=== PATIENT | male | born 1960 | race African-American/Black ===

== ENCOUNTER 2016-08-31 13:19 | Inpatient (IN) | payer OTHER ==
[2016-08-31] VITALS (11 sets, daily range): BP systolic 108–138; BP diastolic 58–84
[~2016-08-31] VITALS: Ht 177.8 cm; Wt 141.5 kg
--- NOTE | ~2016-08-31 | HC ---
[facility] [place] [address] CONSULTATION Name: MARISELA MAJOR Room #: 243-P ADM IN M.R.#: [id number] Admission: 08/31/16 Attend Phys: Adriana Winston MD Discharge: Date of : 64 Report #: [id number] THIS REPORT FOR: //name// CC: Adriana Major REASON FOR CONSULTATION: Chronic kidney disease. REASON FOR ADMISSION: Shortness of breath. HISTORY OF PRESENT ILLNESS: This is a 56-year-old who is well known to us. He follows with Dr. Parkinson in my clinic. He is known to have chronic kidney disease with a baseline creatinine of 3.5 as recent as of the early month of August. He was supposed to see Dr. Parkinson in the clinic next week. He suffers from longstanding complication related to diabetes mellitus and hypertension. He has repeated admissions in the last few months and had gallstone pancreatitis back in 2013. In 2016, he required numerous admissions and the most recent hospitalizations were back in June of 2016, where he was admitted with respiratory failure due to noncompliance with fluid restrictions. He presented yesterday complaining of worsening shortness of breath of few days' duration. He stated that he is compliant with his diuretic regimen, but he does not recall his diuretic regimen. He also had realized that his lower extremities had some increased swelling. In the previous admission, he was found as expected to have obstructive sleep apnea and was sent to [facility] for evaluation of pulmonary hypertension; however, he tells me that they gave him an appointment in 4 months and it does not look like this has been done. On presentation to the Emergency Room yesterday, he was found to have acute kidney injury on top of chronic kidney disease with a creatinine up slightly from his baseline at 4.1. He was also to have severe CO2 narcosis with a pCO2 of 75. He was placed on BiPAP, Lasix drip and I was consulted to manage his chronic kidney disease. As I have stated, his creatinine is usually running around 3.5. He suffers from CKD due to diabetes mellitus. He has severe pulmonary hypertension based on previous evaluations. PAST MEDICAL HISTORY: Extensive and numerous including the followin. Chronic kidney disease. 2. Severe pulmonary hypertension. 3. Morbid obesity. 4. Obstructive sleep apnea on 6 liters. 5. Diabetes mellitus. 6. Anemia. 7. Coronary artery disease. 8. Paroxysmal atrial fibrillation. 9. Hypothyroidism. PAST SURGICAL HISTORY: 1. Gallbladder pancreatitis. [facility] [address] [place] [address] CONSULTATION Name: MARISELA MAJOR Room #: 243-P [facility] IN .R.#: [id number] Admission: 08/31/16 Attend Phys: Adriana Winston MD Discharge: Date of : 64 Report #: [id number] 2. Status post tracheostomy. 3. Status post percutaneous endoscopic gastrostomy. 4. Abdominal hernia repair. 5. Abdominal debridement. ALLERGIES: None. FAMILY HISTORY: Hypertension. CURRENT MEDICATIONS: Include the followin. Furosemide. 2. Albuterol. 3. Methylprednisone. HOME MEDICATIONS: Include amlodipine, lisinopril, spironolactone, Lasix, levothyroxine. REVIEW OF SYSTEMS: GENERAL: No fever or chills. CARDIOVASCULAR: Significant for shortness of breath. PULMONARY: Significant shortness of breath and cough. GASTROINTESTINAL: No nausea or vomiting. GENITOURINARY: No frequency, no urgency. PHYSICAL EXAMINATION: GENERAL: He is alert, oriented, was on the BiPAP, but he was able to take it off and was able to give me the details of history. VITAL SIGNS: Pulse rate is 70, blood pressure 105/58. HEAD AND NECK: No jugular venous distention. CHEST: Decreased air entry bilaterally with crackles. CARDIOVASCULAR: No rub detected. Distant. ABDOMEN: Soft, nontender. LOWER EXTREMITIES: +2 edema. LABORATORY DATA: Values reviewed. Potassium is down to 5.7, creatinine is down to 3.7. As I have stated, blood gas with significant CO2 narcosis. This, however, has improved. Chest x-ray reviewed. ASSESSMENT, IMPRESSION, PLAN: 1. Acute respiratory failure. PO2, CO2 retention and necrosis. 2. Severe pulmonary hypertension. 3. Chronic kidney disease. 4. Hyperkalemia. 5. Diabetes mellitus. [facility] [address] [place] [address] CONSULTATION Name: JAQUELIN MAJORNO Room #: 243-P [facility] IN M.R.#: [id number] Admission: 08/31/16 Attend Phys: Adriana Winston MD Discharge: Date of : 64 Report #: [id number] 6. Hypertension. 7. Pulmonary edema. 8. Fluid restrictions. 9. Salt restrictions. 10. Blood sugar control. 11. Blood pressure control. 12. Lasix drip for now. 13. BiPAP. 14. Continue with the Lasix drip for the next 24 hours and then converted to p.o. regimen. 15. Counseling about compliance with medical care. 16. Severe pulmonary hypertension is contributing to his medical issues and he was supposed to go and see somebody at , however, this has not been done. 17. Alternately I will add his angiotensin converting enzyme inhibitors, Aldactone and then convert to p.o. diuretics. He remains in a stable condition for now. <ELECTRONICALLY SIGNED> By: Shi Jay MD 09/02/16 0845 0647 53 Shi Jay MD /nt
--- NOTE | ~2016-08-31 | HC ---
[facility] [place] [address] CONSULTATION Name: MARISELA MAJOR Room #: 311-P [facility] IN M.R.#: [id number] Admission: 08/31/16 Attend Phys: Adriana Winston MD Discharge: Date of : 64 Report #: [id number] THIS REPORT FOR: //name// CC: Adriana Major DATE OF SERVICE: 08/31/2016 REASON FOR CONSULTATION: Hypercapnic respiratory failure. CRITICAL CARE TIME: Thirty-five minutes critical care time spent. IMPRESSION: 1. Hypercapnic respiratory failure. 2. Aauyc-el-zuurauy renal failure. 3. Pulmonary hypertension. 4. Loose stools. 5. Diabetes. 6. Hypothyroidism. 7. Noncompliance. PLAN: 1. ICU protocol. 2. Adjust BiPAP. 3. Renal disease. 4. I have suggested him in the past regarding evaluation at a tertiary center regarding his pulmonary hypertension. He follows with Dr. Major in the office. I am not sure if he was using his BiPAP or oxygen correctly. He has not followed up with renal. HISTORY OF PRESENT ILLNESS: A 56-year-old comes in with complaint of loose stools, progressive shortness of breath and chest pain for approximately a week and also with nausea, vomiting. The patient denies tobacco use. No recent ETOH. PAST MEDICAL HISTORY: Diastolic CHF, severe pulmonary hypertension, ANNE-MARIE, hypercapnic respiratory failure, coronary artery disease with history of SC, CKD, diabetes, hypothyroidism and gout. MEDICATIONS: Per chart include levothyroxine, spironolactone, amlodipine and lisinopril. SOCIAL HISTORY: Negative tobacco or ETOH. FAMILY HISTORY: Diabetes, heart disease and hypertension. [facility] [address] [place] [address] CONSULTATION Name: MARISELA MAJOR Room #: 311-P ADM IN M.R.#: [id number] Admission: 08/31/16 Attend Phys: Adriana Winston MD Discharge: Date of : 64 Report #: [id number] REVIEW OF SYSTEMS: Positive shortness of breath and loose stools. Relates he recently moved. He denies fever or chills. He complained of chest pain. No palpitations. Positive nausea. PHYSICAL EXAMINATION: VITAL SIGNS: Temp 97.8, pulse 68, respirations 26 and BP 116/80. EYES: Negative icterus. NECK: Negative JVD. LUNGS: Coarse crackles. HEART: Regular. ABDOMEN: Bowel sounds present. EXTREMITIES: Showed trace edema, chronic change, moved all extremities. RADIOLOGICAL DATA: Chest x-ray showed bilateral infiltrates. He does not give the suggestions of pneumonia with no fever, chills or sputum production. LABORATORY DATA: pH initial 7.16, pCO2 of 75 and pO2 of 73. White count 6.7, hemoglobin 9.1, platelets 238 and no bands. BiPAP, ABG 7.187, pCO2 68, pO2 of 78, 50%, rate 10, PEEP 6 and pressure support of 10. CMP showed a BUN of 102 and creatinine 4.1. Albumin 3. Repeat ABG 7.204, pCO2 of 70, pO2 of 74 on rate of 10, pressure support of 14 and PEEP of 6. <ELECTRONICALLY SIGNED> By: Gemma Vergara MD 09/03/16 0548 1725 1880 Gemma Vergara MD /nt
--- NOTE | ~2016-08-31 | H ---
[facility] [place] [address] HISTORY AND PHYSICAL Name: CRISTIANOMARISELA Room #: 243-P ADM IN M.R.#: [id number] Admission: 08/31/16 Attend Phys: Adriana Winston MD Discharge: Date of : 64 Report #: [id number] THIS REPORT FOR: //name// CC: Adriana Major MD DATE OF SERVICE: 08/31/2016 PRIMARY DOCTOR: Parrish Major MD CHIEF COMPLAINT: Shortness of breath. HISTORY OF PRESENT ILLNESS: The patient is a 56-year-old male, well known to our service with a history of severe pulmonary hypertension, chronic kidney disease stage 4-5, followed by Dr. Hughes as well as severe chronic respiratory failure secondary to obesity hypoventilation syndrome and obstructive sleep apnea, on CPAP and I believe 6 liters of home O2, presented to the ER secondary to shortness of breath. Most of the information was obtained from the ER documentation, ER staff as well as respiratory therapist as the patient is very somnolent at this time. The patient apparently had issues with his portable O2 tank. He was not getting adequate oxygenation and started developing shortness of breath today. He reported his saturations to be in the 50s on 6 liters. Additionally, for the past week, he has become more short of breath and was concerned about his congestive heart failure. He continues to take Lasix daily. According to the ER staff, he denies any recent weight gain or leg swelling. The patient has had prolonged hospital stay in the past requiring prolonged ventilation and tracheostomy. The patient is currently somnolent, on BiPAP, briefly arousable. The patient was referred to Pulmonary Hypertension Clinic to consult as to whether he is gone. PAST MEDICAL HISTORY: Severe pulmonary hypertension, cor pulmonale with a PA pressure of 80 based on an echocardiogram done in November of last year. I do not see a repeat one since then. Diastolic dysfunction, morbid obesity, chronic respiratory failure, on 6 liters of home O2 secondary to obesity hypoventilation syndrome; obstructive sleep apnea, on BiPAP nocturnally, coronary artery disease, prior ID, chronic kidney disease stage 4-5, diabetes type 2, gout, hypothyroidism, GERD, and paroxysmal AFib. PAST SURGICAL HISTORY: Abdominal hernia repair, trach and PEG with subsequent reversal, and abdominal wound debridement. ALLERGIES: None. FAMILY HISTORY: Reviewed and noncontributory. [address] [address] HISTORY AND PHYSICAL Name: MARISELA MAJOR Room #: 243-P [facility] IN M.R.#: [id number] Admission: 08/31/16 Attend Phys: Adriana Winston MD Discharge: Date of : 64 Report #: [id number] CURRENT MEDICATIONS: DuoNeb p.r.n., Lantus 40 units at bedtime, Lasix 80 mg b.i.d., and OxyIR. PHYSICAL EXAMINATION: VITAL SIGNS: Temperature of 97, pulse 73, blood pressure 109/64 and O2 sat 98% on an FIO2 of 50. GENERAL: He is somnolent, briefly arousable, follow commands. He moves all extremities equally, but very weakly. HEENT: Normocephalic and atraumatic. Pupils are about 2-3 mm, sluggishly reactive. Mucous membranes are moist. NECK: Supple. CARDIOVASCULAR: Regular rate and rhythm. No murmurs. LUNGS: Clear to auscultation bilaterally, decreased at the bases. ABDOMEN: Soft and obese. No distention or tenderness. EXTREMITIES: No edema. NEUROLOGIC: He is arousable, but he can fall to sleep easily and he moves all extremities equally, but he is very weak. IMAGING: Chest x-ray showed increasing CHF and pulmonary edema. LABORATORY DATA: Initial ABG of 7.161, pCO2 of 75, pO2 of 72, O2 sat is 88%, this was on 6 liters; subsequently after a couple of adjustments on his BiPAP, pH of 7.2, pCO2 of 70, pO2 of 73, O2 sat 90% on FIO2 of 30%. Sodium 140, potassium 5.3, BUN and creatinine are 102 and 4.1. Total CO2 of 30. Liver enzymes showed no significant abnormalities. Albumin is 3.0. GFR is 19. White count of 6.7, H and H of 9 and 29, and platelets 238. ASSESSMENT: 1. Acute on chronic hypoxic hypercapnic respiratory failure. 2. Cor pulmonale and pulmonary edema. 3. Severe pulmonary hypertension. 4. Obesity hypoventilation syndrome/obstructive sleep apnea. 5. Acute kidney injury on chronic kidney disease, stage 4-5. 6. Type 2 diabetes. 7. Morbid obesity. 8. Hypothyroidism. 9. Chronic anemia. 10. Gastroesophageal reflux disease. 11. Coronary artery disease, prior myocardial infarction. 12. History of paroxysmal atrial fibrillation. PLAN: 1. Consult renal and pulmonary. Monitor in the ICU. 2. I will start him on Lasix drip. 3. Aggressive pulmonary toiletry, O2 support, nebulizers. 4. Resume home medications once appropriate. [facility] [address] [place] [address] HISTORY AND PHYSICAL Name: MARISELA MAJOR Room #: 243-P ADM IN MKarinR.#: [id number] Admission: 08/31/16 Attend Phys: Adriana Winston MD Discharge: Date of : 64 Report #: [id number] 5. We will repeat an echocardiogram. 6. DVT prophylaxis with heparin. By: [id number] 1920 Adriana Winston MD /nt
--- NOTE | ~2016-08-31 | 2DMMODE ---
[facility] [address] [place] [address] 2 D/M-MODE ECHOCARDIOGRAM Name: JAQUELIN QUINONEZNO Room #: 243-P [facility] IN .R.#: [id number] Admission: 08/31/16 Attend Phys: Adriana Winston MD Discharge: Date of : 64 Date of Service: 09/02/16 1310 Report #: [id number] THIS REPORT FOR: //name// APPROVED REPORT Study performed: 09/01/2016 09:29:29 EXAM: Comprehensive 2D, Doppler, and color-flow Echocardiogram Patient Location: Bedside Room #: 243 Blood Pressure: 139/71 mmHg HR: 82 bpm Other Information Study Quality: Adequate Indications Congestive Heart Failure Diabetes CAD Hypertension/HDD Congenital Heart Disease Cor Pulmonale Pulmonary Hypertension 2D Dimensions LVEF(%): 45.01 (>50%) IVSd: 13.80 (7-11mm) LVOT Diam: 24.00 (18-24mm) LVDd: 46.82 mm PWd: 12.04 (7-11mm) Ascending Aorta: 33.54 mm LVDs: 36.37 (25-40mm) Aortic Root: 35.92 mm Donaldson's LVEF: 45.01 % Volumes Left Atrial Volume (Systole) Single Plane 4CH: 73.72 mL Single Plane 2CH: 124.60 mL LA ESV Index: 52.00 mL/m2 Aortic Valve AoV Peak Maciej.: 1.60 m/s AO Peak Gr.: 11.48 mmHg LV Max P.98 mmHg LV Max: 1.00 m/s [facility] [address] [place] [address] 2 D/M-MODE ECHOCARDIOGRAM Name: JAQUELIN QUINONEZNO Room #: 243-P [facility] IN ..#: [id number] Admission: 08/31/16 Attend Phys: Adriana Winston MD Discharge: Date of : 64 Date of Service: 09/02/16 1310 Report #: [id number] Mitral Valve E/A Ratio: 1.2 MV Decel. Time: 176.95 ms MV E Max Maciej.: 1.08 m/s MV A Maciej.: 0.87 m/s MV PHT: 51.32 ms Pulmonary Valve PV Peak Maciej.: 1.34 m/s PV Peak Gr.: 7.26 mmHg NJ End Vmax: 1.40 m/s Pulmonary Vein P Vein S: 55.3 m/s P Vein D: 35.0 m/s P Vein A Dur.: 39.4 m/s PVa Duration: 180 Tricuspid Valve TR Peak Maciej.: 3.94 m/s RAP Estimate: 15.00 mmHg TR Peak Gr.: 62.03 mmHg PA Pressure: 77.00 mmHg Left Ventricle The left ventricle is normal size. There is normal LV segmental wall motion. Mild concentric left ventricular hypertrophy. Left ventricular systolic function is normal. The left ventricular ejection fraction is within the normal range. LVEF is 55-60%. Grade II - pseudonormal filling dynamics. Right Ventricle Right ventricle is moderately dilated. The right ventricular systolic function is reduced. Atria Left atrium is dilated. Right atrium is moderately dilated. Aortic Valve The aortic valve is normal in structure. No aortic regurgitation is present. There is no aortic valvular stenosis. Mitral Valve The mitral valve is normal in structure. There is no mitral valve regurgitation noted. No evidence of mitral valve stenosis. Tricuspid Valve The tricuspid valve is normal in structure. Moderate tricuspid [facility] [address] [place] [address] 2 D/M-MODE ECHOCARDIOGRAM Name: MARISELA QUINONEZ Room #: 243-P ADM IN M.R.#: [id number] Admission: 08/31/16 Attend Phys: Adriana Winston MD Discharge: Date of : 64 Date of Service: 09/02/16 1310 Report #: [id number] regurgitation. Pulmonic Valve The pulmonary valve is normal in structure. Mild pulmonic regurgitation. Great Vessels The aortic root is normal in size. Dilated IVC with poor inspiration collapse is consistent with elevated right atrial pressure. Pericardium There is no pericardial effusion. <Conclusion> Left ventricular systolic function is normal. There is normal LV segmental wall motion. LVEF 55-60%. Grade II - pseudonormal filling dynamics. Right ventricle is moderately dilated. Left atrium is dilated. Right atrium is moderately dilated. The aortic valve is normal in structure. No aortic regurgitation or stenosis The mitral valve is normal in structure. There is no mitral valve regurgitation noted. Pulmonary artery pressure of 55mm Hg. There is no pericardial effusion. <ELECTRONICALLY SIGNED> By: David Godoy MD, FACC 09/02/161309 09 09 David Godoy MD, FACC /INF
--- NOTE | ~2016-08-31 | EKG ---
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 09/02/16 1453 1408 1408 David Godoy MD, FACC /EPI
[~2016-08-31 13:19] MED LIST: ALDACTONE25 MG PO; AMARYL1 MG; AMLODIPINE; AMLODIPINE PO; ARICEPT23 MG; ASPIRIN EC81 M1; AUGMENTIN 875875 MG PO; AVAPRO300 MG; BACTRIM DS TAB1 EACH PO; COLCHICINE0.6 MG PO; COLCRYS 0.6 MG0.6 MG PO; DEMADEX 2020 MG/1 TA PO; DEMADEX20 MG; DIGOXIN; DOXYCYCLINE 10100 M1 PO; DUONEB 2.5-0.5 M3 ML INH; FUROSEMIDE; HUMALOG100 UNIT/1 SUBQ; HYDROXYZINE HCL25 M1 PO; IBUPROFEN 600600 M1 PO; IRON325 PO; K-DUR 20 MEQ T20 MEQ; LANOXIN 0.120.125 M3; LANOXIN 0.250.25 M1 PO; LANTUS100 UNIT/M SUBQ; LASIX 40 MG TAB40 MG PO; LASIX 80 MG TAB80 MG PO; LISINOPRIL; LISINOPRIL40 MG PO; LISINOPRIL5 MG; MIRALAX17 GM PO; NAMENDA 10 MG T10 MG; NEPHROCAPS SOFT1 CAP PO; NORCO 5-325 TA1 EACH PO; NORVASC 5 MG TAB5 MG PO; NOVOLIN N100 UNIT/1 SQ; NOVOLIN N100 UNIT/1 SUBQ; OXYCODONE HCL10 MG PO; PERCOCET 5-3251 EACH PO; PERCOCET PO; POTASSIUM; PREDNISONE 10 M10 MG; PREDNISONE 20 M20 MG PO; PRINIVIL PO; RENVELA800 MG PO; SEROQUEL 25 MG25 M1; SYNTHROID; SYNTHROID125 MCG; SYNTHROID200 MCG PO; SYNTHROID50 MCG; TORSEMIDE10 MG PO; TYLENOL325 MG PO; ULTRA-LIGHT RO1 EACH MC; ULTRAM 50MG TAB50 MG PO; VITAMIN D31000 UNI2; ZOLOFT 50 MG TA50 M1
[2016-08-31] MEDS ORDERED: ALDACTONE25 MG PO (13:46)
[2016-08-31] MEDS ORDERED: NORVASC5 MG PO (13:47)
[2016-08-31] MEDS ORDERED: VIT D (13:47)
[2016-08-31] MEDS ORDERED: [UNRECOGNIZED DRUG - OTHER] (13:47)
[2016-08-31] MEDS ORDERED: PROBIOTIC1 EAC1 PO (13:47)
[2016-08-31] MEDS ORDERED: UNICOMPLEX M TA1 TA1 PO (13:47)
[2016-08-31] MEDS ORDERED: PRINIVIL20 MG PO (13:48)
[2016-08-31] MEDS ORDERED: V-R WOMEN'S CO1 EACH PO (13:48)
[2016-08-31 14:09] LABS: ABG SAMPLE TYPE ARTERIAL; BE(vivo) -3.3 mmol/L (-2 to +3); HCO3 26.3 mmol/L (22.0-26.0); LACTATE 1.31 mmol/L (0.5-2.0); O2(CT) 12.8 mL/dL (15.0-23.0); O2Hb 88.8 % (92.0-98.0); PO2 72.6 mmHg (80.0-100.0); sO2 89.4 % (92.0-98.0); tCO2 28.6 mmol/L (24.0-30.0)
[2016-08-31 14:10] LABS: PCO2 75.3 mmHg (35.0-45.0); STICK SITE R.RADIAL; pH 7.161 (7.360-7.450)
[2016-08-31 15:09] LABS: BASOPHILS 0.6 % (0.0-2.0); EOSINOPHILS 1.5 % (0.0-3.0); HEMATOCRIT 29.1 % (42.0-52.0); HEMOGLOBIN 9.1 gm/dL (14.0-18.0); LYMPHOCYTES 16.3 % (24.0-44.0); MCH 27.8 pg (26.0-34.0); MCHC 31.2 g/dL (28.0-37.0); MCV 89.1 fL (80.0-100.0); MONOCYTES 7.3 % (1.0-8.0); PLATELET COUNT 238 thou/uL (150-400); POLYS 74.3 % (36.0-66.0); RBC 3.27 mil/uL (4.50-6.00); RDW 18.9 % (10.5-14.5); WBC 6.7 thou/uL (4.0-11.0)
[2016-08-31 15:10] LABS: MANUAL DIFF NO
[2016-08-31 15:11] LABS: ABG SAMPLE TYPE ARTERIAL; BE(vivo) -3.5 mmol/L (-2 to +3); HCO3 25.4 mmol/L (22.0-26.0); LACTATE 1.25 mmol/L (0.5-2.0); O2(CT) 12.9 mL/dL (15.0-23.0); PCO2 68.4 mmHg (35.0-45.0); PO2 77.9 mmHg (80.0-100.0); pH 7.187 (7.360-7.450); sO2 91.9 % (92.0-98.0); tCO2 27.5 mmol/L (24.0-30.0)
[2016-08-31 15:12] LABS: Pressure Support 10 cm H20
[2016-08-31 15:13] LABS: STICK SITE R.RADIAL
[2016-08-31 15:17] LABS: ANION GAP 6 mmol/L (7-16); BUN 102 mg/dL (7-18); CALCIUM 8.4 mg/dL (8.5-10.1); CHLORIDE 104 mmol/L (98-107); CO2 30 mmol/L (21-32); CREATININE 4.1 mg/dL (0.7-1.3); GLUCOSE 92 mg/dL (74-106); POTASSIUM 5.3 mmol/L (3.5-5.1); SODIUM 140 mmol/L (136-145)
[2016-08-31 15:27] LABS: ALKALINE PHOSPHATASE 70 U/L (46-116); NT-PRO BRAIN NAT PEPTIDE 9122 pg/mL (<300); SGOT 15 U/L (15-37); SGPT 17 U/L (30-65); TOTAL BILIRUBIN 0.4 mg/dL (<0.1-1.0); TOTAL PROTEIN 8.3 g/dL (6.4-8.2); TROPONIN-I < 0.04 ng/mL (<0.04-0.07)
[2016-08-31 16:18] LABS: ABG SAMPLE TYPE ARTERIAL; BE(vivo) -1.8 mmol/L (-2 to +3); HCO3 27.1 mmol/L (22.0-26.0); LACTATE 1.25 mmol/L (0.5-2.0); O2Hb 90.2 % (92.0-98.0); PO2 73.6 mmHg (80.0-100.0); sO2 90.9 % (92.0-98.0); tCO2 29.2 mmol/L (24.0-30.0)
[2016-08-31 16:19] LABS: PCO2 70.2 mmHg (35.0-45.0); pH 7.204 (7.360-7.450)
[2016-08-31 16:20] LABS: STICK SITE R.RADIAL
[2016-08-31 16:21] LABS: Pressure Support 14 cm H20
[2016-08-31 21:12] LABS: TROPONIN-I < 0.04 ng/mL (<0.04-0.07)
[2016-09-01] VITALS (24 sets, daily range): BP systolic 101–159; BP diastolic 38–138
[2016-09-01 01:56] LABS: URINE BILIRUBIN NEGATIVE (Negative); URINE BLOOD NEGATIVE (Negative); URINE COLOR YELLOW; URINE GLUCOSE-RANDOM* NEGATIVE (Negative); URINE KETONES NEGATIVE (Negative); URINE LEUKOCYTES-REFLEX NEGATIVE (Negative); URINE PROTEIN (DIPSTICK) 2+ (Negative); URINE SPECIFIC GRAVITY 1.025 (1.003-1.035); URINE UROBILINOGEN 0.2 E.U./dl (0.2-1.0)
[2016-09-01 02:30] LABS: SQUAMOUS 4-10 Moderate /LPF (0-3)
[2016-09-01 02:31] LABS: CASTS None Seen /LPF (None Seen); CRYSTALS None Seen /LPF (None Seen); URINE RBC 0-2 Rare /HPF (0-2); URINE WBC-REFLEX 0-5 Rare /HPF (0-5)
[2016-09-01 03:28] LABS: HEMATOCRIT 29.8 % (42.0-52.0); HEMOGLOBIN 9.3 gm/dL (14.0-18.0); MCH 27.6 pg (26.0-34.0); MCHC 31.2 g/dL (28.0-37.0); MCV 88.3 fL (80.0-100.0); PLATELET COUNT 239 thou/uL (150-400); RBC 3.37 mil/uL (4.50-6.00); RDW 18.4 % (10.5-14.5); WBC 6.6 thou/uL (4.0-11.0)
[2016-09-01 03:30] LABS: MANUAL DIFF YES
[2016-09-01 03:39] LABS: ALBUMIN 2.9 g/dL (3.4-5.0); CALCIUM 8.6 mg/dL (8.5-10.1); CREATININE 3.7 mg/dL (0.7-1.3); PHOSPHORUS 6.4 mg/dL (2.5-4.9); POTASSIUM 5.9 mmol/L (3.5-5.1); TOTAL BILIRUBIN 0.4 mg/dL (<0.1-1.0); TOTAL PROTEIN 7.5 g/dL (6.4-8.2)
[2016-09-01 03:47] LABS: TROPONIN-I < 0.04 ng/mL (<0.04-0.07)
[2016-09-01 04:06] LABS: GLYCOHEMOGLOBIN (HGB A1C) 5.9 % (4.8-5.6)
[2016-09-01 05:06] LABS: ABG SAMPLE TYPE ARTERIAL; BE(vivo) -3.2 mmol/L (-2 to +3); HCO3 24.4 mmol/L (22.0-26.0); O2(CT) 12.9 mL/dL (15.0-23.0); O2Hb 90.4 % (92.0-98.0); PCO2 56.7 mmHg (35.0-45.0); PO2 66.4 mmHg (80.0-100.0); Pressure Support 14 cm H20; STICK SITE R.RADIAL; pH 7.251 (7.360-7.450); sO2 89.6 % (92.0-98.0); tCO2 26.1 mmol/L (24.0-30.0)
[2016-09-01 10:02] LABS: ABSOLUTE NEUTROPHILS 5.8 thou/uL (1.4-8.2); TOTAL CELL COUNT 100
[2016-09-01 10:03] LABS: ANISOCYTOSIS 2+; POLYCHROMASIA OCCASIONAL
[2016-09-01 10:25] LABS: ABG SAMPLE TYPE ARTERIAL; BE(vivo) 0.9 mmol/L (-2 to +3); HCO3 29.5 mmol/L (22.0-26.0); LACTATE 1.36 mmol/L (0.5-2.0); O2(CT) 12.9 mL/dL (15.0-23.0); O2Hb 91.4 % (92.0-98.0); STICK SITE R.RADIAL; pH 7.231 (7.360-7.450); sO2 91.8 % (92.0-98.0); tCO2 31.8 mmol/L (24.0-30.0)
[2016-09-02] VITALS (11 sets, daily range): BP systolic 109–141; BP diastolic 68–78
[2016-09-02 04:23] LABS: CALCIUM 8.1 mg/dL (8.5-10.1); CREATININE 3.6 mg/dL (0.7-1.3); PHOSPHORUS 5.1 mg/dL (2.5-4.9); POTASSIUM 5.7 mmol/L (3.5-5.1)
[2016-09-02 05:24] LABS: ABG SAMPLE TYPE ARTERIAL; BE(vivo) 2.4 mmol/L (-2 to +3); HCO3 29.3 mmol/L (22.0-26.0); LACTATE 1.39 mmol/L (0.5-2.0); O2(CT) 14.9 mL/dL (15.0-23.0); O2Hb 96.1 % (92.0-98.0); PCO2 56.8 mmHg (35.0-45.0); PO2 100.4 mmHg (80.0-100.0); Pressure Support 14 cm H20; STICK SITE R.RADIAL; sO2 97.1 % (92.0-98.0)
[2016-09-02 05:25] LABS: ABG COMMENT BIPAP 20/ 6 R-10
[2016-09-03 03:38] VITALS: BP 137/72
[2016-09-03 07:15] LABS: ALBUMIN 2.8 g/dL (3.4-5.0); CALCIUM 8.2 mg/dL (8.5-10.1); CREATININE 3.2 mg/dL (0.7-1.3); PHOSPHORUS 4.5 mg/dL (2.5-4.9); POTASSIUM 4.2 mmol/L (3.5-5.1)
[2016-09-03 08:33] VITALS: BP 139/82
[2016-09-03 11:49] VITALS: BP 139/82
[2016-09-03] MEDS ORDERED: FLAGYL500 MG PO (12:58)
[2016-09-03] MEDS ORDERED: CEFUROXIME250 MG PO (12:58)
[2016-09-03] MEDS ORDERED: PREDNISONE 10 M10 MG PO (12:59)
[2016-09-03] MEDS ORDERED: SYNTHROID200 MCG PO (12:59)
[2016-09-03 13:10] VITALS: BP 139/82
[2016-09-04 22:06] LABS: INFLUENZA B Negative (Negative); METAPNEUMOVIRUS Negative (Negative)
== END 2016-09-03 14:32 | disposition home or self-care (01) | DRG 177 ==
LOC: ER 13:19 → EROBS 15:49 → 3N 15:49 → ICU 18:54 → 3N 09-02 13:24
PROVIDERS: Family Medicine; Hospitalist; Internal Medicine Pulmonary Disease; Nurse Practitioner Family
PROC: 5A09357 Assistance with Respiratory Ventilation, Less than 24 Consecutive Hours, Continuous Positive Airway Pressure (ICD-10-PCS; principal; 2016-08-31)
DX: J69.0 Pneumonitis due to inhalation of food and vomit (principal); J96.22 Acute and chronic respiratory failure with hypercapnia; I50.23 Acute on chronic systolic (congestive) heart failure; J96.21 Acute and chronic respiratory failure with hypoxia; N17.9 Acute kidney failure, unspecified; I13.2 Hypertensive heart and chronic kidney disease with heart failure and with stage 5 chronic kidney disease, or end stage renal disease; N18.5 Chronic kidney disease, stage 5; E87.2 Acidosis; Z68.41 Body mass index [BMI] 40.0-44.9, adult; I25.10 Atherosclerotic heart disease of native coronary artery without angina pectoris; E03.9 Hypothyroidism, unspecified; M10.9 Gout, unspecified; K21.9 Gastro-esophageal reflux disease without esophagitis; I48.0 Paroxysmal atrial fibrillation; G47.33 Obstructive sleep apnea (adult) (pediatric); I27.2 Other secondary pulmonary hypertension; E87.5 Hyperkalemia; E11.22 Type 2 diabetes mellitus with diabetic chronic kidney disease; E66.01 Morbid (severe) obesity due to excess calories; I27.81 Cor pulmonale (chronic); B96.89 Other specified bacterial agents as the cause of diseases classified elsewhere; I25.2 Old myocardial infarction; Z79.4 Long term (current) use of insulin; Z93.0 Tracheostomy status; Z91.19 Patient's noncompliance with other medical treatment and regimen; Z83.3 Family history of diabetes mellitus; Z82.49 Family history of ischemic heart disease and other diseases of the circulatory system; Z93.1 Gastrostomy status; Z79.899 Other long term (current) drug therapy
CPT/HCPCS: 10078; 10096

== ENCOUNTER 2017-09-30 17:32 | Emergency (ER) | payer OTHER ==
[~2017-09-30] VITALS: Ht 177.8 cm; Wt 139.7 kg
[~2017-09-30 17:32] MED LIST changes: +CEFUROXIME250 MG PO; +FLAGYL500 MG PO; +NORVASC5 MG PO; +PREDNISONE 10 M10 MG PO; +PRINIVIL20 MG PO; +PROBIOTIC1 EAC1 PO; +UNICOMPLEX M TA1 TA1 PO; +V-R WOMEN'S CO1 EACH PO; +VIT D; +[UNRECOGNIZED DRUG - OTHER]
[2017-09-30 17:50] VITALS: BP 143/78
[2017-09-30] MEDS ORDERED: ERYTHROMYCIN E3.5 G2 OPHTHALMIC (18:30)
[2017-09-30] MEDS ORDERED: KEFLEX500 M1 PO (18:30)
== END 2017-09-30 18:48 | disposition home or self-care (01) ==
LOC: ER 17:32
DX: H00.014 Hordeolum externum left upper eyelid (principal); E11.9 Type 2 diabetes mellitus without complications; I13.0 Hypertensive heart and chronic kidney disease with heart failure and stage 1 through stage 4 chronic kidney disease, or unspecified chronic kidney disease; I50.9 Heart failure, unspecified; N18.4 Chronic kidney disease, stage 4 (severe); E11.22 Type 2 diabetes mellitus with diabetic chronic kidney disease; E03.9 Hypothyroidism, unspecified; M10.9 Gout, unspecified; K21.9 Gastro-esophageal reflux disease without esophagitis

== ENCOUNTER 2017-11-03 13:18 | Inpatient (IN) | payer OTHER ==
[~2017-11-03] VITALS: Ht 180.3 cm; Wt 147.4 kg
[2017-11-03] VITALS (7 sets, daily range): BP systolic 131–157; BP diastolic 70–81
--- NOTE | ~2017-11-03 | HC ---
[facility] [place] [address] CONSULTATION Name: MARISELA QUINONEZ Room #: 213-P [facility] IN M.R.#: [id number] Admission: 11/03/17 Attend Phys: Shi Jay MD Discharge: 11/07/17 Date of : 64 Report #: [id number] THIS REPORT FOR: //name// CC: Shi Jay [facility] physician/PCP Parrish Pedrito DATE OF SERVICE: 11/04/2017 ATTENDING PHYSICIAN: Shi Jay MD was the initial admitting physician. REASON FOR CONSULTATION: Acute and chronic kidney disease. HISTORY OF PRESENT ILLNESS: The patient is quite well known to our service, multiple prior similar admissions with chronic respiratory failure, obesity hypoventilation, COPD and chronic kidney disease with diabetes and proteinuric renal failure with a creatinine recently of 3.5 and now up to 4. He follows with Dr. Parkinson in the office, but not on any regular basis, presents with progressive shortness of breath and swelling of his legs. No cough or hemoptysis, or pleuritic pain. PAST MEDICAL HISTORY: Diabetes, obesity hypoventilation, diabetic nephropathy, history of paroxysmal atrial fibrillation, cor pulmonale and hypertension. HOME MEDICATIONS: As listed include amlodipine 5 mg daily, furosemide 80 mg b.i.d., insulin, DuoNeb inhaler, levothyroxine 0.2 mg daily, lisinopril 40 mg daily, Flagyl as listed, oxycodone, multiple vitamins, prednisone. He has been on and off of that. Spironolactone 25 mg daily. FAMILY HISTORY: Recorded in the old charts. SOCIAL HISTORY: No cigarettes or alcohol. REVIEW OF SYSTEMS: GENERAL: He has actually been feeling reasonably well except for the progressive exertional dyspnea. EYES: His vision has been okay. ENT: Hearing okay, swallows okay. ENDOCRINE: Positive for the diabetes and thyroid disease. RESPIRATORY: Chronic shortness of breath as mentioned. CARDIAC: No chest pain or angina. He does have chronic right-sided failure with swelling. GASTROINTESTINAL: No nausea, vomiting, diarrhea. He has got a good appetite. GENITOURINARY: Reasonably good urinary stream without hematuria. NEUROLOGIC: Some generalized weakness only. No seizure, syncope, stroke or neuropathy. [facility] [address] [place] [address] CONSULTATION Name: MARISELA QUINONEZ Room #: 213-P [facility] IN M.R.#: [id number] Admission: 11/03/17 Attend Phys: Shi Jay MD Discharge: 11/07/17 Date of : 64 Report #: [id number] PHYSICAL EXAMINATION: GENERAL: This is a well-developed, well-nourished, quite alert gentleman, currently on BiPAP, but answering questions. SKIN: Unremarkable. SKELETAL: Rather obese, well-developed, well-nourished. HEENT: Extraocular movements are full. No scleral icterus. Hearing and vision intact. Mucous membranes moist. NECK: Supple. CHEST: Shows diminished breath sounds. HEART: Regular. ABDOMEN: Soft and nontender. EXTREMITIES: Show 2+ lower extremity edema. LABORATORY DATA: The potassium, which I believe was a spurious result this morning, was reported at 7.4. The BUN was 131 yesterday, down to 126 after diuresis. Creatinine 4.1 down to 4.0. Glucose was 291. Magnesium 1.7. ASSESSMENT AND PLAN: 1. Acute and chronic kidney disease, apparently has diabetic nephropathy. We will recheck him for proteinuria. Check a urinalysis. He has very, very severe end-stage pulmonary disease, likely would not be a great candidate for chronic dialysis. He has been appropriately on a converting enzyme inhibitor for his proteinuric renal disease and this will be restarted pending a recheck of his proteinuria. 2. Hyperkalemia. I believe this is spurious. His sugar was up and treating that would certainly help as well and we will recheck. 2. Obesity ventilation with chronic respiratory insufficiency, on BiPAP and oxygen at home. 3. Cor pulmonale with right-sided heart failure. 4. History of paroxysmal atrial fibrillation, currently in sinus rhythm. <ELECTRONICALLY SIGNED> By: Mike Urena MD 11/08/17 1122 0737 0942 Mike Urena MD /nt
--- NOTE | ~2017-11-03 | EKG ---
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 : 1960 Requested By: Mike Urena Order Number: [id number] MD: David Godoy Measurements Intervals [place] Rate: 55 P: 78 MS: 201 QRS: 58 QRSD: 108 T: 62 QT: 477 QTc: 457 Interpretive Statements Sinus bradycardia Prolonged MS interval Compared to ECG 11/03/2017 14:24:35 No significant change was found Electronically Signed On 11-05-2017 9:03:37 CDT by David Godoy [email or web address] <ELECTRONICALLY SIGNED> By: David Godoy MD, [facility] 11/05/17 0903 D: 06/636 6 David Godoy MD, FACC /EPI
--- NOTE | ~2017-11-03 | EKG ---
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: Nedra DIXON : 1960 Requested By: Kingsley Gutierrez Order Number: [id number] MD: González Desai Measurements Intervals [place] Rate: 63 P: 54 WA: 215 QRS: 45 QRSD: 116 T: 70 QT: 457 QTc: 468 Interpretive Statements Sinus rhythm Prolonged WA interval Nonspecific intraventricular conduction delay Compared to ECG 08/31/2016 14:08:48 Intraventricular conduction delay now present Electronically Signed On 11-03-2017 21:20:28 CDT by González Desai [email or web address] <ELECTRONICALLY SIGNED> By: González Desai MD 11/03/172119 142 142 González Desai MD /JUDY
--- NOTE | ~2017-11-03 | H ---
[facility] [place] [address] HISTORY AND PHYSICAL Name: MARISELA MAJOR Room #: 213-P [facility] IN M.R.#: [id number] Admission: 11/03/17 Attend Phys: Shi Jay MD Discharge: 11/07/17 Date of : 64 Report #: [id number] THIS REPORT FOR: //name// CC: Shi Jay [facility] physician/PCP Parrish Major REASON FOR PRESENTATION: Shortness of breath of 4 days' duration. HISTORY OF PRESENT ILLNESS: This is a very well known patient to me. He is known to have severe obstructive sleep apnea, utilizing BiPAP at home. He is also known to have severe right-sided pulmonary hypertension with chronic kidney disease and a baseline creatinine of around 3-3.5. He presented to the Emergency Room complaining of worsening shortness of breath over the last few days. This was associated with lower extremity edema. No reported upper respiratory tract symptoms, infection. No chest pain. No fever or chills. He stated that he is compliant with his BiPAP at home. He also stated that he is compliant with his salt, fluid restriction and diuretics intake. On presentation to the Emergency Room, he was found to be in acute hypercapnic respiratory failure with significant anemia. Chest x-ray was consistent with pulmonary edema. The patient has been admitted to the hospital numerous occasion with a similar presentation, the last of which was back in August 2016. In terms of kidney problems, he does have complicated past medical history when it comes to his kidneys and he required dialysis in the past. He tells me that he last saw Dr. Parkinson in the clinic about 6 months ago. PAST MEDICAL HISTORY: 1. Severe pulmonary hypertension with cor pulmonale. 2. Morbid obesity. 3. Obstructive sleep apnea. 4. Diabetes mellitus. 5. Paroxysmal atrial fibrillation. 6. Hypothyroidism. PAST SURGICAL HISTORY: 1. Gallbladder pancreatitis 2. Status post tracheostomy. 3. Status post abdominal hernia repair. 4. Abdominal wall debridement for an abscess. ALLERGIES: None. FAMILY HISTORY: Hypertension. CURRENT MEDICATIONS: Include the following. 1. Cephalexin: 2. Amlodipine. [facility] [address] [place] [address] HISTORY AND PHYSICAL Name: JAQUELIN MAJORNO Room #: 213-P [facility] IN ..#: [id number] Admission: 11/03/17 Attend Phys: Shi Jay MD Discharge: 11/07/17 Date of : 64 Report #: [id number] 3. Lisinopril. 4. Oxycodone. 5. Furosemide. 6. Prednisone. 7. Lantus. 8. Levothyroxine. REVIEW OF SYSTEMS: GENERAL: No fever or chills. CARDIOVASCULAR: As per the history of present illness. PULMONARY: As per the history of present illness. GASTROINTESTINAL: No nausea or vomiting. GENITOURINARY: No frequency, no urgency. PHYSICAL EXAMINATION: VITAL SIGNS: He was on CPAP. Blood pressure was 151/78. However, his blood pressure when he presented was 200 for the systolic. Pulse rate is 60. HEAD AND NECK: Mildly elevated jugular venous pressure. CHEST: Very limited air entry bilaterally with crackles. CARDIOVASCULAR: Distant S1 and S2. ABDOMEN: Obese. LOWER EXTREMITIES: +3 edema. LABORATORY VALUES: Reviewed. Hemoglobin is low at 7.7. Blood gas revealed a pH of 7.1, a pCO2 of 65. Sodium of 143, potassium of 5.5, BUN of 31, creatinine 4.1. Chest x-ray reviewed, mild pulmonary vascular congestions. ASSESSMENT, IMPRESSION, PLAN: 1. Acute hypercapnic respiratory failure. 2. Acute kidney injury. 3. Chronic kidney disease. 4. Severe pulmonary hypertension with cor pulmonale. 5. Diabetes mellitus. 6. Obstructive sleep apnea. 7. Admission. 8. ICU care. 9. IV diuresis. 10. CPAP machine. 11. Pulmonary consultation. 12. Repeat labs, specifically ABGs in few hours. 13. Anemia workup. 14. Resume his outpatient medications for his thyroid and blood sugar. 15. Holding lisinopril and Aldactone for now. 16. Most recent echo was back in 2017 and was consistent with severe pulmonary [address] [address] HISTORY AND PHYSICAL Name: MARISELA MAJOR Room #: 213-P [facility] IN M.R.#: [id number] Admission: 11/03/17 Attend Phys: Shi Jay MD Discharge: 11/07/17 Date of : 64 Report #: [id number] hypertension. The patient was supposed to follow up with natural resource manager in , will follow up with the Pulmonology team regarding that. 17. Accu-Chek and sliding scale insulin. 18. Deep venous thrombosis and gastrointestinal prophylaxis. <ELECTRONICALLY SIGNED> By: Shi Jay MD 11/11/17 0945 1707 1805 Sih Jay MD /nt
--- NOTE | ~2017-11-03 | 2DMMODE ---
[facility] [email or web address] [address] 2 D/M-MODE ECHOCARDIOGRAM Name: MARISELA QUINONEZ Room #: 241-P [facility] IN M.R.#: [id number] Admission: 11/03/17 Attend Phys: Shi Jay, Discharge: Date of : 64 Date of Service: 11/04/17 1016 Report #: [id number] THIS REPORT FOR: //name// APPROVED REPORT Study performed: 11/04/2017 09:20:32 EXAM: Comprehensive 2D, Doppler, and color-flow Echocardiogram Patient Location: ICU Room #: 241 Status: routine BSA: 2.56 HR: 67 bpm BP: 135/81 mmHg Rhythm: NSR Other Information Study Quality: Adequate/Patient flat on back on BiPAP. Indications Short of air. Diastolic CHF. Hx: CHF, CAD, DM, PAF, morbid obesity. 2D Dimensions RVDd: 53.51 mm LVEF(%): 70.01 (>50%) IVSd: 12.42 (7-11mm) LVOT Diam: 24.03 (18-24mm) LVDd: 56.12 mm PWd: 11.92 (7-11mm) Ascending Ao: 34.41 (22-36mm) LVDs: 33.66 (25-40mm) Aortic Root: 37.42 mm Donaldson's LVEF: 70.01 % Volumes Left Atrial Volume (Systole) Single Plane 4CH: 82.03 mL Single Plane 2CH: 118.89 mL LA ESV Index: 42.00 mL/m2 Aortic Valve AoV Peak Maciej.: 2.18 m/s AO Peak Gr.: 19.02 mmHg LVOT Max P.94 mmHg LVOT Max V: 1.50 m/s SIGIFREDO Vmax: 3.11 cm2 Mitral Valve [facility] [email or web address] [address] 2 D/M-MODE ECHOCARDIOGRAM Name: MARISELA QUINONEZ Room #: 241-P ADM IN M.R.#: [id number] Admission: 11/03/17 Attend Phys: Shi Jay, Discharge: Date of : 64 Date of Service: 11/04/17 1016 Report #: [id number] E/A Ratio: 1.5 MV Decel. Time: 233.48 ms MV E Max Maciej.: 1.31 m/s MV A Maciej.: 0.89 m/s MV PHT: 67.71 ms IVRT: 79.58 ms Pulmonary Valve PV Peak Maciej.: 1.71 m/s PV Peak Gr.: 11.63 mmHg Pulmonary Vein P Vein S: 0.90 m/s P Vein A: 0.37 m/s P Vein D: 0.68 m/s P Vein A Dur.: 83.0 msec P Vein S/D Ratio: 1.32 Tricuspid Valve TR Peak Maciej.: 3.36 m/s RAP Estimate: 15.00 mmHg TR Peak Gr.: 45.21 mmHg PA Pressure: 60.00 mmHg Left Ventricle The left ventricle is normal size. There is normal LV segmental wall motion. Mild concentric left ventricular hypertrophy. Left ventricular systolic function is normal. LVEF is 55-60%. Right Ventricle Right ventricle is moderately dilated. The right ventricular systolic function is normal. Atria Left atrium is moderately dilated. Right atrium is severely dilated. Aortic Valve The aortic valve is mildly sclerotic No aortic regurgitation is present. There is no aortic valvular stenosis. Mitral Valve The mitral valve is normal in structure. There is no mitral valve regurgitation noted. Tricuspid Valve The tricuspid valve is normal in structure. Moderate tricuspid regurgitation. Estimated PAP is 55mmHg. Pulmonic Valve [address] [address] 2 D/M-MODE ECHOCARDIOGRAM Name: MARISELA QUINONEZ Room #: 241-P [facility] IN [facility].#: [id number] Admission: 11/03/17 Attend Phys: Shi Jay, Discharge: Date of : 64 Date of Service: 11/04/17 1016 Report #: [id number] The pulmonary valve is normal in structure. Trace to mild pulmonic regurgitation. Great Vessels The aortic root is normal in size. The ascending aorta is normal in size. IVC is dilated and collapses <50% with inspiration. Pericardium There is no pericardial effusion. <Conclusion> Left ventricular systolic function is normal. There is normal LV segmental wall motion. LVEF 55-60%. Right atrium is severely dilated. The aortic valve is mildly sclerotic. No aortic regurgitation or stenosis The mitral valve is normal in structure. No mitral valve regurgitation Moderate tricuspid regurgitation. Estimated pulmonary artery pressure of 55mmHg. There is no pericardial effusion. <ELECTRONICALLY SIGNED> By: David Godoy MD, FACC 11/04/17 1016 1016 1016 David Godoy MD, FACC /INF
[~2017-11-03 13:18] MED LIST changes: +ERYTHROMYCIN E3.5 G2 OPHTHALMIC; +KEFLEX500 M1 PO
[2017-11-03 14:11] LABS: BE(vivo) -5.9 mmol/L (-2 to +3); HCO3 22.1 mmol/L (22.0-26.0); PCO2 58.9 mmHg (35.0-45.0); PO2 61.2 mmHg (80.0-100.0); sO2 85.1 % (92.0-98.0)
[2017-11-03 14:13] LABS: pH 7.193 (7.360-7.450)
[2017-11-03 15:09] LABS: ABSOLUTE NEUTROPHILS 5.1 thou/uL (1.4-8.2); BASOPHILS 0.4 % (0.0-2.0); EOSINOPHILS 2.7 % (0.0-3.0); HEMATOCRIT 25.2 % (42.0-52.0); HEMOGLOBIN 7.7 gm/dL (14.0-18.0); LYMPHOCYTES 20.4 % (24.0-44.0); MCH 25.8 pg (26.0-34.0); MCHC 30.7 g/dL (28.0-37.0); MCV 83.9 fL (80.0-100.0); MONOCYTES 6.1 % (1.0-8.0); PLATELET COUNT 253 thou/uL (150-400); POLYS 70.4 % (36.0-66.0); RDW 20.2 % (10.5-14.5); WBC 7.3 thou/uL (4.0-11.0)
[2017-11-03 15:19] LABS: ANION GAP 9 mmol/L (7-16); BUN 131 mg/dL (7-18); CALCIUM 8.4 mg/dL (8.5-10.1); CHLORIDE 108 mmol/L (98-107); CO2 26 mmol/L (21-32); CREATININE 4.1 mg/dL (0.7-1.3); GLUCOSE 110 mg/dL (74-106); POTASSIUM 5.5 mmol/L (3.5-5.1); SODIUM 143 mmol/L (136-145)
[2017-11-03 15:28] LABS: ALBUMIN 3.2 g/dL (3.4-5.0); SGOT 11 U/L (15-37); SGPT 13 U/L (30-65); TOTAL BILIRUBIN 0.3 mg/dL (<0.1-1.0); TOTAL PROTEIN 8.4 g/dL (6.4-8.2); TROPONIN-I <0.06 ng/mL (<0.06)
[2017-11-03 15:48] LABS: ANISOCYTOSIS 2+; TARGET CELLS FEW
[2017-11-03 15:57] LABS: BE(vivo) -5.1 mmol/L (-2 to +3); HCO3 23.5 mmol/L (22.0-26.0); PCO2 65.9 mmHg (35.0-45.0); PO2 281.1 mmHg (80.0-100.0); sO2 99.5 % (92.0-98.0)
[2017-11-03 17:54] LABS: BE(vivo) -6.7 mmol/L (-2 to +3); HCO3 21.4 mmol/L (22.0-26.0); PCO2 57.3 mmHg (35.0-45.0); PO2 143.2 mmHg (80.0-100.0); sO2 98.2 % (92.0-98.0)
[2017-11-04] VITALS (14 sets, daily range): BP systolic 113–150; BP diastolic 52–109
[2017-11-04 04:17] LABS: HEMATOCRIT 25.9 % (42.0-52.0); HEMOGLOBIN 7.7 gm/dL (14.0-18.0); MCH 25.2 pg (26.0-34.0); MCHC 29.9 g/dL (28.0-37.0); MCV 84.3 fL (80.0-100.0); RBC 3.07 mil/uL (4.50-6.00); RDW 20.8 % (10.5-14.5); WBC 7.2 thou/uL (4.0-11.0)
[2017-11-04 04:33] LABS: ALBUMIN 3.1 g/dL (3.4-5.0); CALCIUM 8.7 mg/dL (8.5-10.1); MAGNESIUM 1.7 mg/dL (1.8-2.4); PHOSPHORUS 5.6 mg/dL (2.5-4.9)
[2017-11-04 04:36] LABS: % SATURATION 13 % (20-39); IRON 30 ug/dL (65-175); TIBC 224 ug/dL (250-450)
[2017-11-04 04:44] LABS: POTASSIUM 7.4 mmol/L (3.5-5.1)
[2017-11-04 08:02] LABS: CALCIUM 8.6 mg/dL (8.5-10.1)
[2017-11-04 08:05] LABS: POTASSIUM 7.3 mmol/L (3.5-5.1)
[2017-11-04 08:06] LABS: ALBUMIN 3.1 g/dL (3.4-5.0); PHOSPHORUS 5.1 mg/dL (2.5-4.9)
[2017-11-04 08:34] LABS: BE(vivo) -6.7 mmol/L (-2 to +3); PCO2 54.2 mmHg (35.0-45.0); PO2 71.8 mmHg (80.0-100.0); sO2 90.7 % (92.0-98.0)
[2017-11-04 08:35] LABS: pH 7.207 (7.360-7.450)
[2017-11-04 10:10] LABS: URINE BILIRUBIN NEGATIVE (Negative); URINE BLOOD 1+ (Negative); URINE CLARITY SL CLOUDY; URINE COLOR YELLOW; URINE GLUCOSE-RANDOM* TRACE (Negative); URINE KETONES NEGATIVE (Negative); URINE LEUKOCYTES 2+ (Negative); URINE NITRITE NEGATIVE (Negative); URINE PROTEIN (DIPSTICK) 1+ (Negative); URINE UROBILINOGEN 0.2 E.U./dl (0.2-1.0)
[2017-11-04 10:15] LABS: PROT/CREAT RATIO 2.2; URINE CREATININE-RANDOM* 36.2 mg/dL
[2017-11-04 10:19] LABS: CASTS None Seen /LPF (None Seen); CRYSTALS None Seen /LPF (None Seen); SQUAMOUS 0-3 Few /LPF (0-3); URINE RBC None Seen /HPF (0-2); URINE WBC 6-15 Few /HPF (0-5)
[2017-11-04 17:07] LABS: ALBUMIN 3.3 g/dL (3.4-5.0); CALCIUM 8.5 mg/dL (8.5-10.1); CREATININE 4.1 mg/dL (0.7-1.3); PHOSPHORUS 4.2 mg/dL (2.5-4.9)
[2017-11-05] VITALS (22 sets, daily range): BP systolic 116–154; BP diastolic 56–79
[2017-11-05 04:54] LABS: ALBUMIN 3.1 g/dL (3.4-5.0); CALCIUM 8.2 mg/dL (8.5-10.1); CREATININE 4.1 mg/dL (0.7-1.3); MAGNESIUM 1.8 mg/dL (1.8-2.4)
[2017-11-05 04:58] LABS: POTASSIUM 7.6 mmol/L (3.5-5.1)
[2017-11-05 11:17] LABS: BE(vivo) -5.9 mmol/L (-2 to +3); HCO3 21.7 mmol/L (22.0-26.0); PCO2 52.9 mmHg (35.0-45.0); PO2 57.2 mmHg (80.0-100.0); sO2 84.1 % (92.0-98.0)
[2017-11-05 15:48] LABS: ALBUMIN 3.3 g/dL (3.4-5.0); CALCIUM 8.6 mg/dL (8.5-10.1); PHOSPHORUS 4.9 mg/dL (2.5-4.9); POTASSIUM 5.9 mmol/L (3.5-5.1)
[2017-11-06 04:15] VITALS: BP 148/83
[2017-11-06 04:15] LABS: ALBUMIN 3.1 g/dL (3.4-5.0); CALCIUM 8.2 mg/dL (8.5-10.1); CREATININE 3.6 mg/dL (0.7-1.3); POTASSIUM 5.3 mmol/L (3.5-5.1)
[2017-11-06 07:34] VITALS: BP 154/78
[2017-11-06 11:26] VITALS: BP 159/71
[2017-11-06 15:40] VITALS: BP 147/71
[2017-11-06 19:50] VITALS: BP 149/71
[2017-11-07 03:59] LABS: ALBUMIN 3.1 g/dL (3.4-5.0); CALCIUM 7.8 mg/dL (8.5-10.1); CREATININE 3.2 mg/dL (0.7-1.3); PHOSPHORUS 4.7 mg/dL (2.5-4.9); POTASSIUM 5.2 mmol/L (3.5-5.1)
[2017-11-07 04:38] VITALS: BP 152/84
[2017-11-07 07:08] VITALS: BP 145/84
[2017-11-07 07:36] LABS: BE(vivo) -2.4 mmol/L (-2 to +3); HCO3 23.5 mmol/L (22.0-26.0); PCO2 45.8 mmHg (35.0-45.0); PO2 94.1 mmHg (80.0-100.0); sO2 96.7 % (92.0-98.0)
[2017-11-07 07:39] LABS: pH 7.328 (7.360-7.450)
[2017-11-07] MEDS ORDERED: PREDNISONE 5 MG5 MG PO (10:56)
[2017-11-07 11:17] VITALS: BP 148/87
[2017-11-07] MEDS ORDERED: TORSEMIDE20 MG PO (12:20)
[2017-11-07] MEDS ORDERED: PREDNISONE 10 M10 MG PO (12:21)
[2017-11-07] MEDS ORDERED: LANTUS SOL100 UNIT/1 SUBQ (12:23)
[2017-11-07] MEDS ORDERED: FIASP 100100 UNIT/1 SUBQ (12:25)
[2017-11-07 13:00] VITALS: BP 148/87
== END 2017-11-07 13:16 | disposition home or self-care (01) | DRG 291 ==
LOC: ER 13:18 → ICU 15:51 → EROBS 15:51 → ICU 17:15 → 2N 11-05 22:03
PROVIDERS: Hospitalist; Internal Medicine Nephrology; Internal Medicine Pulmonary Disease; Physician Assistant
PROC: 5A09357 Assistance with Respiratory Ventilation, Less than 24 Consecutive Hours, Continuous Positive Airway Pressure (ICD-10-PCS; principal; 2017-11-03)
PROC: 5A09357 Assistance with Respiratory Ventilation, Less than 24 Consecutive Hours, Continuous Positive Airway Pressure (ICD-10-PCS; 2017-11-05)
PROC: 5A09357 Assistance with Respiratory Ventilation, Less than 24 Consecutive Hours, Continuous Positive Airway Pressure (ICD-10-PCS; 2017-11-06)
PROC: 5A09357 Assistance with Respiratory Ventilation, Less than 24 Consecutive Hours, Continuous Positive Airway Pressure (ICD-10-PCS; 2017-11-07)
DX: I13.0 Hypertensive heart and chronic kidney disease with heart failure and stage 1 through stage 4 chronic kidney disease, or unspecified chronic kidney disease (principal); I50.33 Acute on chronic diastolic (congestive) heart failure; J18.9 Pneumonia, unspecified organism; J96.21 Acute and chronic respiratory failure with hypoxia; J96.22 Acute and chronic respiratory failure with hypercapnia; N17.9 Acute kidney failure, unspecified; E87.2 Acidosis; Z68.42 Body mass index [BMI] 45.0-49.9, adult; N18.4 Chronic kidney disease, stage 4 (severe); M10.9 Gout, unspecified; K21.9 Gastro-esophageal reflux disease without esophagitis; I48.0 Paroxysmal atrial fibrillation; E87.5 Hyperkalemia; I27.81 Cor pulmonale (chronic); E11.22 Type 2 diabetes mellitus with diabetic chronic kidney disease; I25.10 Atherosclerotic heart disease of native coronary artery without angina pectoris; I27.20 Pulmonary hypertension, unspecified; R00.1 Bradycardia, unspecified; E66.01 Morbid (severe) obesity due to excess calories; G47.33 Obstructive sleep apnea (adult) (pediatric); Z79.4 Long term (current) use of insulin; Z93.0 Tracheostomy status; I25.2 Old myocardial infarction; Z82.49 Family history of ischemic heart disease and other diseases of the circulatory system; Z79.899 Other long term (current) drug therapy
CPT/HCPCS: 10078; 10081

== ENCOUNTER 2018-05-30 17:22 | Inpatient (IN) | payer OTHER ==
[~2018-05-30] VITALS: Ht 177.8 cm; Wt 132.5 kg
--- NOTE | ~2018-05-30 | PLAN ---
[facility] [place] [address] REHAB UNIT PLAN OF CARE Name: MARISELA QUINONEZ Room #: 514-P ADM IN M.R.#: [id number] Admission: 05/30/18 Attend Phys: Blaine Núñez MD Discharge: Date of : 64 Report #: [id number] THIS REPORT FOR: //name// CC: Blaine Núñez [facility] physician/PCP DATE OF SERVICE: 06/01/2018 PROGRESS NOTE/OVERALL PLAN OF CARE SUBJECTIVE: The patient was seen yesterday on 06/01/2018 with the dictation today on 06/02/2018. No new problems were noted. The patient has been involved in therapies with transfers at a mod assist level. He has ambulated up to 15 feet min assist with a front-wheeled walker. In occupational therapy, he has been max assist for lower body dressing, upper body dressing has been min assist. ASSESSMENT: 1. Acute on chronic congestive heart failure. 2. Acute on chronic hypoxemic respiratory failure. 3. Medical complex with generalized debilitation. 4. End-stage renal disease, on hemodialysis Saturday, , and Saturday. 5. Pulmonary hypertension with cor pulmonale. 6. Morbid obesity. 7. Type 2 diabetes mellitus. 8. Obstructive sleep apnea. 9. Paroxysmal atrial fibrillation. PLAN: The overall plan of care is based on the preadmission screen, post-admission physician evaluation, and information garnered from therapy assessments. 1. Estimated length of stay is probably around 2 weeks or potentially longer as needed to improve his function to the point he is ready to go back home. 2. Medical prognosis is reasonably good. 3. Anticipated interventions include the interdisciplinary acute inpatient rehabilitation program with PT and OT, rehab nursing assisting regarding medication management, skin care prophylaxis, bowel and bladder issues, and nursing education. Case management is involved as well as the consulting physicians. 4. Anticipated functional outcomes would be for the patient to become modified independent with mobility and ADLs at a walker level, so he can return back to the home setting. 5. Discharge destination would be back home where he lives by himself in a house. [facility] [address] [place] [address] REHAB UNIT PLAN OF CARE Name: MARISELA QUINONEZ Room #: 514-P [facility] IN .R.#: [id number] Admission: 05/30/18 Attend Phys: Blaine Núñez MD Discharge: Date of : 64 Report #: [id number] 6. Expected therapy by discipline includes PT and OT 1-1/2 hours per day each 5 days a week throughout the duration of the acute inpatient rehabilitation stay. By: [id number] Blaine Núñez MD /nt
--- NOTE | ~2018-05-30 | H ---
[facility] [address] [place] [address] HISTORY AND PHYSICAL Name: MARISELA QUINONEZ Room #: 514-P ADM IN M.R.#: [id number] Admission: 05/30/18 Attend Phys: Blaine Núñez MD Discharge: Date of : 64 Report #: [id number] THIS REPORT FOR: //name// CC: Blaine Núñez [facility] physician/PCP DATE OF SERVICE: 05/31/2018 HISTORY AND PHYSICAL/POSTADMISSION PHYSICIAN EVALUATION HISTORY OF PRESENT ILLNESS: The patient is a 57-year-old -Gabonese male Incomplete dictation. By: 0721 0824 Blaine Núñez MD /nt
--- NOTE | ~2018-05-30 | H ---
[facility] [place] [address] HISTORY AND PHYSICAL Name: JAQUELIN QUINONEZNO Room #: 514-P ADM IN M.R.#: [id number] Admission: 05/30/18 Attend Phys: Blaine Núñez MD Discharge: Date of : 64 Report #: [id number] THIS REPORT FOR: //name// CC: Blaine Núñez [facility] physician/PCP DATE OF SERVICE: 05/31/2018 HISTORY AND PHYSICAL/POSTADMISSION PHYSICIAN EVALUATION HISTORY OF PRESENT ILLNESS: The patient is a 57-year-old -Vietnamese male with history of congestive heart failure, chronic kidney disease, hypertension, obstructive sleep apnea, admitted with increased shortness of breath. He was diagnosed with [id number] congestive heart failure with acute on chronic hypoxic respiratory failure. He was noted to have end-stage renal disease and had a tunneled catheter placed and Nephrology has been closely involved. He was noted to gradually improve his positive strength and endurance and now has been admitted for acute in-hospital inpatient rehabilitation. PAST MEDICAL HISTORY: Includes severe pulmonary hypertension with cor pulmonale, morbid obesity, obstructive sleep apnea, paroxysmal atrial fibrillation, diabetes mellitus, and hypothyroidism. PAST SURGICAL HISTORY: Gallbladder pancreatitis, status post tracheostomy, status post abdominal hernia repair, and abdominal wall debridement for an abscess. ALLERGIES: None currently noted. FAMILY HISTORY: Hypertension. MEDICATIONS: Please see the full medication listing. HABITS: Includes vitamins, herbals, and supplements. SOCIAL HISTORY: He lives alone in a house. Did not utilize gait aids, was able to do his own ADLs. He has a sister in the area. REVIEW OF SYSTEMS: No current complaints of chest pain, shortness of breath or abdominal discomfort. PHYSICAL EXAMINATION: GENERAL: A 57-year-old -Vietnamese male in no obvious distress. He is currently on CPAP. He usually has 5 liters breathing at home. VITAL SIGNS: As noted with temperature 97.3, pulse 88, respirations 18, blood pressure 131/75. [facility] [address] [place] [address] HISTORY AND PHYSICAL Name: MARISELA QUINONEZ Room #: 514-P [facility] IN [facility].#: [id number] Admission: 05/30/18 Attend Phys: Blaine Núñez MD Discharge: Date of : 64 Report #: [id number] HEENT: Facies are symmetric. Appears to be a reasonable historian. CHEST: Some decreased breath sounds throughout, otherwise sounded clear. CARDIAC: Regular rate and rhythm. ABDOMEN: Obese, bowel sounds positive, nontender. GENITOURINARY AND RECTAL: Deferred. Functional range of motion of both upper extremities and strength grade 4- to 3+/5. DTRs are trace to 1. Lower extremities: Functional range of motion, strength grade 4- to 3+/5. DTRs are trace to 1. He is needing assistance with basic functional mobility skills and has been able to ambulate a short distance with a walker. This is a 57-year-old -Vietnamese male admitted for acute in-hospital inpatient rehabilitation with the following problem list: 1. Acute on chronic congestive heart failure. 2. Acute on chronic hypoxemic respiratory failure. 3. Medical complex with generalized debilitation. 4. End-stage renal disease. 5. Severe pulmonary hypertension with Cor pulmonale. 6. Morbid obesity. 7. Diabetes mellitus. 8. Obstructive sleep apnea. 9. Paroxysmal atrial fibrillation. PLAN: The patient is admitted for acute in-hospital inpatient rehabilitation. From a postadmission physician evaluation perspective, there are no relevant changes since the preadmission screening. Please see the above review of prior and current medical and functional conditions and comorbidities. Please see the patient's previous and current functional status. As far as risk of complications, the patient has multiple medical comorbidities as noted above. Initial plan of care involves the interdisciplinary acute inpatient rehabilitation program with the goal of maximizing the patient's functional independence, so he can hopefully return back to his prior living situation. Measurable functional goals would be for him to become modified independent with transfers, mobility and ADLs at least at the walker level initially. Prognosis is reasonably good with estimated length of stay probably at least 10 days to 2 weeks and likely longer in order to achieve the level where he can return back home. Potential barriers would include his multiple medical comorbidities and decreased functional status. By: 0732 0832 Blaine Núñez MD /nt
[~2018-05-30 17:22] MED LIST changes: +BYSTOLIC 5 MG5 M1 PO; +CHLORTHALIDONE25 MG PO; +DEMADEX20 MG PO; +FIASP 100100 UNIT/1 SUBQ; +FLEXERIL PO; +GLIPIZIDE ER2.5 MG PO; +HYDROCHLOROTHIA25 M2 PO; +IPRAT-ALBUT 0.5-3 ML INH; +LANTUS SOL100 UNIT/1 SUBQ; +LASIX 40 MG TAB40 M2 PO; +METOLAZONE 5 MG5 MG PO; +MORPHINE SULFAT15 M3 PO; +NORVASC2.5 MG PO; +PREDNISONE 10 M10 M1 PO; +PREDNISONE 5 MG5 MG PO; +TORSEMIDE20 MG PO
[2018-05-30 17:30] VITALS: BP 131/75
--- NOTE | 2018-05-31 02:30 | NUR ---
ASSUMED CARE OF PT AT 1915. PT ALERT AND ORIENTED X4. ADMISSION HISTORY, ASSESSMENT AND EDUCATION COMPLETED. C/O PAIN WITH EDEMA IN LEFT HAND, TREATED WITH OXYCODONE. BIPAP AND O2 SAT MONITOR PLACED BY RESP TX AT HS. HAS APPEARED TO BE SLEEPING WHEN CHECKED ON HOURLY ROUNDS. FALL PRECAUTIONS IN PLACE.
[2018-05-31 06:30] LABS: HEMATOCRIT 26.3 % (42.0-52.0); HEMOGLOBIN 8.1 gm/dL (14.0-18.0); MCV 87.1 fL (80.0-100.0); RBC 3.02 mil/uL (4.50-6.00); RDW 20.4 % (10.5-14.5); WBC 4.6 thou/uL (4.0-11.0)
[2018-05-31 06:36] LABS: CALCIUM 9.3 mg/dL (8.5-10.1); CREATININE 4.6 mg/dL (0.7-1.3); POTASSIUM 4.1 mmol/L (3.5-5.1)
[2018-05-31 07:30] VITALS: BP 99/60
--- NOTE | 2018-05-31 17:27 | NUR ---
ASSUMED CARE AT APPROX 0715. PATIENT A/O X4. C/O PAIN IN LEFT HAND. PRN PAIN MEDS ADMINISTERED. O2 SATS MAINTAINED ON 6L O2 WITH ACTIVITY AND AT REST, PATIENT STATED THIS IS HIS HOME DOSE. BLE EDEMA 2+, LEGS ELEVATED WHEN AT REST. PATIENT PARTICIPATED IN THERAPY. REMAINED UP IN WHEELCHAIR BETWEEN SESSIONS. DIALYSIS TODAY, SONOGRAPHY TECHNOLOGIST ROUNDED ON PATIENT. RIGHT CHEST TESSIO DRESSING DRY AND INTACT. FALL PRECAUTIONS IN PLACE. PATIENT LEFT UNIT APPROX 1545 FOR DIALYSIS, CURRENTLY STILL OFF THE FLOOR. WILL CONTINUE TO MONITOR.
[2018-05-31 20:12] VITALS: BP 111/71
--- NOTE | 2018-05-31 22:00 | NUR ---
FROM DIALYSIS AT 1940, HUNGRY AND BLOOD SUGAR = 69. IMMEDIATE 4 OUNCES APPLE JUICE AND DINNER RE-HEATED AND EATEN. PATIENT FEELS MUCH BETTER AND IS READY FOR RT TO SET UP CPAP FOR HIM. PAIN PILLS OFFFERING ONLY PARTIAL RELIEF OF HIS HAND PAIN
[2018-06-01 07:58] VITALS: BP 103/51
--- NOTE | 2018-06-01 09:09 | NUR ---
ASSUMED CARE AT 0700. PATIENT IS ALERT AND ORIENTED X4. PATIENT GALE, BUT HAS SWELLING TO HIS LEFT HAND. PATIENT HAS 2+ EDEMA IN HIS L.E.'S. PATIENT IS ON HEMODIALYSIS. PATIENT HAS A LEFT TESSIO FOR DIAYSIS. BS 70 THIS A.M. PATIENT ATE 100% OF BREAKFAST. LUNGS ARE COARSE AND DEMINISHED. 02 AT 6L PER N/C. ABD IS SOFT WITH BSX4. FALL AND SAFETY PROTOCOLS IN PLACE. DENIES ANY PAIN AT THIS TIME. TURNS SELF IN BED. WILL CONTINUE TO MONITER.
[2018-06-01 22:50] VITALS: BP 105/63
--- NOTE | 2018-06-02 03:58 | NUR ---
PT LYING IN BED. OXY IR PROVIDING PAIN RELIEF. RESTING COMFORTABLY. NO NEEDS VOICED. CALL LIGHT WITHIN REACH. WILL CONTINUE TO PROVIDE FREQUENT OBSERVATION.
--- NOTE | 2018-06-02 06:38 | NUR ---
PT REFUSED OFFERS FOR TURNS.
[2018-06-02 08:15] VITALS: BP 95/63
--- NOTE | 2018-06-02 12:46 | NUR ---
cm visited with pt while up in wheel chair. intro to cm, team meeting, outpt dialysis and home health. " i have family reunion that i am giving speech out on jun 13, hope that will work out and maybe if dr heck puts me on that pill that starts with r i will not have to do dialysis"/kenneth. referral was sent to [facility], sat 11am [facility] location. " live alone, safe, have life alert, home oxygen, and bipap from [facility]. still driving. pcp dr alex alvarado. need walker and can not find machine to check bs. have not been on insulin in a year, just take pills, that is important for the nurse to see about medication"/kenneth. cm passed on information to bedside nurse visit pt question on medication.
--- NOTE | 2018-06-02 13:23 | NUR ---
Nutrition: Pt admitted with acute on chronic CHF, hypoxic respiratory failure to rehab unit. Consult received, no reason stated. Chart reviewed. Pt with recent weight loss of > 30# which was related to fluid. Hx ESRD on dialysis, class 3 extreme obesity with BMI 41. Pt eating well. Voices no education desires at this time, has received educations in the past. Consider low risk.
--- NOTE | 2018-06-02 19:46 | NUR ---
ASSUMED CARE AT APPROX 0715. PATIENT A/O X4. VSS. C/O PAIN IN HANDS BILATERALLY. OXY IR ADMINISTERED PRN. PATIENT UP IN CHAIR THIS AM. WAFFLE CUSHION ORDERED FOR CHAIR. WOUND CARE CONSULTED FOR PRESSURE AREAS NOTED ON LEFT THIGH AND BUTTOX. REMINDED PATIENT TO TURN Q2 ON ROUNDS TO RELIEF PRESSURE, EDUCATED ON WOUND HEALING. LOTION APPLIED TO BACK FOR DRY SKIN. DRESSING TO DIALYSIS CATH C/D/I. PATIENT PARTICIPATED IN THERAPY. UP IN CHAIR FOR MEALS. FALL PRECAUTIONS IN PLACE. RESTING IN BED AT CHANGE OF SHIFT.
[2018-06-02 19:47] VITALS: BP 93/66
--- NOTE | 2018-06-02 22:15 | NUR ---
SUPPOSITORY AN HOUR AGO WITH MODERATE LIGHT BROWN STOOL ON TOILET NOW. READY FOR OVERNIGHT CPAP. PLANS DIALYSIS SATURDAY. BLOOD SUGAR = 92
[2018-06-03 05:35] LABS: CALCIUM 9.3 mg/dL (8.5-10.1); MAGNESIUM 2.2 mg/dL (1.8-2.4); POTASSIUM 4.4 mmol/L (3.5-5.1)
[2018-06-03 05:38] LABS: ABSOLUTE NEUTROPHILS 3.4 thou/uL (1.4-8.2); EOSINOPHILS 2.2 % (0.0-3.0); HEMATOCRIT 25.7 % (42.0-52.0); HEMOGLOBIN 7.8 gm/dL (14.0-18.0); LYMPHOCYTES 24.5 % (24.0-44.0); MCH 25.7 pg (26.0-34.0); MCHC 30.2 g/dL (28.0-37.0); MCV 85.1 fL (80.0-100.0); MONOCYTES 11.4 % (1.0-8.0); PLATELET COUNT 241 thou/uL (150-400); POLYS 60.9 % (36.0-66.0); RBC 3.02 mil/uL (4.50-6.00); RDW 19.9 % (10.5-14.5); WBC 5.6 thou/uL (4.0-11.0)
[2018-06-03 05:41] LABS: CREATININE 5.6 mg/dL (0.7-1.3)
[2018-06-03 09:07] VITALS: BP 91/54
--- NOTE | 2018-06-03 09:23 | NUR ---
WOUND CONSULT: PT. WAS SEEN TODAY BY DR. CHAVEZ AND MYSELF. PT. WAS NOTED TO HAVE TWO SMALL RED AREAS TO HIS RIGHT BUTTOCK AND TOP OF RIGHT THIGH. UPON EVALUATION IT SHOWED THAT PT. HAS SCARRING TO THIS AREA FROM POSSIBLE PREVIOUS PRESSURE ULCERS. THERE ARE NOT OPEN OR ACTIVE WOUNDS NOTED AT THIS TIME. RECOMMENDATIONS: CONTINUE WITH PRESSURE ULCER PREVENTION MEASURES AT THIS TIME. WOUND CARE TEAM WILL BE SIGNING OFF. PLEASE RE-CONSULT IF NEEDED. PT. AND STAFF NURSE WERE INSTRUCTED ON PLAN OF CARE.
--- NOTE | 2018-06-03 11:44 | NUR ---
ASSUMED CARE AT 0700. PATIENT IS ALERT AND ORIENTED X4. PATIENT GALE'S. HIS LEFT HAND IS SWOLLEN. L.E. HAVE +2 EDEAM. PLAN FOR DIAYSIS TODAY. LUNGS ARE CLEAR. ABD IS SOFT WITH BSX4. PATIENT IS ANURIC. PATIENT HAS LEFT TESSIO CATHETER FOR DIALYSIS TODAY. FALL AND SAFETY PROTOCOLS IN PLACE. NO C/O PAIN AT THIS TIME. CONTINUES TO PROGRESS SLOWLY TOWARDS D/C GOALS. WILL CONTINUE TO MONITER.
--- NOTE | 2018-06-03 12:52 | NUR ---
team meeting, recommendation : 30th, with hh ( pt,ot, nursing, and sw ). family phone call support. outpt dialysis [facility] location. bfww. will cont following as needed for dc needs.
--- NOTE | 2018-06-03 14:04 | NUR ---
TO HEMODIALYSIS PER BED. PATIENT LEFT FLOOR IN GOOD CONDTION.
[2018-06-03 19:42] VITALS: BP 87/53
--- NOTE | 2018-06-04 03:27 | NUR ---
ASSUMED CARE OF PT AT 1915. PT ALERT AND ORIENTED X4. C/O PAIN IN HAND, TREATED WITH PO OXYCODONE. BIPAP PLACED AT HS, O2 AT 6 LITERS BY NASAL CANNULAE WHEN BIPAP OFF. DENIES DYPSNEA AT REST. HAS APPEARED TO BE SLEEPING WHEN CHECKED ON HOURLY ROUNDS. FALL PRECAUTIONS IN PLACE.
[2018-06-04 10:18] VITALS: BP 134/66
--- NOTE | 2018-06-04 10:46 | HC ---
[facility] [place] [address] CONSULTATION Name: JAQUELIN QUINONEZNO Room #: 514-P ADM IN M.R.#: [id number] Admission: 05/30/18 Attend Phys: Blaine Núñez MD Discharge: Date of : 64 Report #: [id number] THIS REPORT FOR: //name// CC: Blaine Núñez [facility] physician/PCP DATE OF SERVICE: 06/03/2018 CHIEF COMPLAINT: Gluteal posterior thigh pressure ulceration. HISTORY OF PRESENT ILLNESS: This is a 57-year-old male patient who is seen on the rehab unit today with a history of congestive heart failure and chronic kidney disease who had been admitted with shortness of breath. He was admitted to in-hospital inpatient rehabilitation. He is noted to have some question about his pressure ulceration. I have been asked to see him in this regard. PAST MEDICAL HISTORY: Positive for severe hypertension with cor pulmonale, morbid obesity, obstructive sleep apnea, paroxysmal atrial fibrillation, diabetes and hypothyroidism. ALLERGIES: None. FAMILY HISTORY: Hypertension. MEDICATIONS: Reviewed in the MAR. SOCIAL HISTORY: Negative for current alcohol or tobacco use. REVIEW OF SYSTEMS: CONSTITUTIONAL: The patient denies fever, chills or weight loss. NEUROLOGICAL: The patient denies focal weakness, numbness or tingling. EYES: The patient denies visual changes, redness or drainage. ENT: The patient denies earache, nasal drainage or sore throat. CARDIOVASCULAR: The patient denies chest pain, palpitation or diaphoresis. PULMONARY: The patient denies cough or shortness of breath. GASTROINTESTINAL: The patient denies nausea, vomiting or abdominal pain. ORTHOPEDIC: The patient denies pain or swelling in the extremities. Other systems are negative in a 14-point review of systems. PHYSICAL EXAMINATION: VITAL SIGNS: At this time include pulse 75, respiration 15, blood pressure 91/54, temperature 98.0. GENERAL: This is a chronically ill-appearing male patient who appears to be in no distress. HEENT: Head normocephalic. Nose and throat are clear. NECK: Supple. [facility] [address] [place] [address] CONSULTATION Name: JAQUELIN QUINONEZNO Room #: 514-[facility] IN M.R.#: [id number] Admission: 05/30/18 Attend Phys: Blaine Núñez MD Discharge: Date of : 64 Report #: [id number] LUNGS: Diminished. ABDOMEN: Soft. EXTREMITIES: Examination of the sacral gluteal region demonstrates several areas of what appeared to be previous pressure ulceration to the gluteal sacral region and posterior thigh. These are all epithelialized, nothing is open and there was no concern for any breakdown at this time. CLINICAL IMPRESSION: 1. History of pressure ulcerations with evidence of such having now epithelialized in the right posterior thigh and gluteal region. 2. End-stage renal disease. 3. Diabetes mellitus. 4. Acute on chronic congestive heart failure. RECOMMENDATIONS: At this point in time, the patient is mobile and is ambulating with assistance and with a walker. He was able to stand for me without too much difficulty and assistance. I do not think he requires any particular care to these areas. They are epithelialized and showing no evidence of any deterioration. At this point in time, we will sign off, however, be available should there be any further concerns. I appreciate being asked to see him in consultation. <ELECTRONICALLY SIGNED> By: Khoa Cao MD 06/04/18 1046 [id number] Khoa Cao MD /nt
[2018-06-04 13:19] VITALS: BP 134/66
--- NOTE | 2018-06-04 15:00 | NUR ---
cm visited with pt t up in bed, visited with pt rt, transport to and from dialysis and if he had friend or family to take him after he is dc from acute rehab and if family he would like cm to update on dcp " yes can call my sister miriam [phone]. no i will just need to take a uber ride, can i get insurance to pay for transport if for medical tx "education on medicaid has transport that is less than using cab, and dialysis clinic can help set up transportation for pt once pt is been to clinic. " ok thank you, i will like to talk with someone about medicaid"/kenneth. cm team to send referral to [facility]. cm called and left message with pt sister miriam.
--- NOTE | 2018-06-04 15:56 | NUR ---
ASSUMED CARE AT APPROX 0715. PATIENT A/O X4. C/O PAIN IN HANDS BILATERALLY. MEDICATED FOR PAIN THIS AM PRIOR TO THERAPY. UP X1 ASSIST GB AND WALKER. AMBULATING SHORT DISTANCES WITH PT. PATIENT EDUCATED ON FLOATING HEELS AND DVT PROPHYLAXIS. DIALYSIS CATHETER DRESSING C/D/I. ACCUCHECKS CHANGED TO BID. FALL PRECAUTIONS IN PLACE. WILL CONTINUE TO MONITOR.
[2018-06-04 20:10] VITALS: BP 103/57
[2018-06-04 20:30] VITALS: BP 131/73
--- NOTE | 2018-06-05 01:12 | NUR ---
ASSUMED CARE OF PT AT 1915. PT ALERT AND ORIENTED X4, CALM AND COOPERATIVE. ASSESSMENT COMPLETED. PT REFUSES TO BE REPOSITIONED IN BED, STATES HE CAN "ONLY SLEEP ON MY BACK". BIPAP PLACED AT HS, WITH CONTINUOUS SAT MONITOR. C/O PAIN IN HAND, RELIEVED WITH OXYCODONE. HAS APPEARED TO BE SLEEPING WHEN CHECKED ON HOURLY ROUNDS. FALL PRECAUTIONS IN PLACE.
[2018-06-05 09:27] VITALS: BP 97/61
--- NOTE | 2018-06-05 14:57 | NUR ---
ASSUMED CARE AT APPROX 0715. PATIENT A/O X4. C/O PAIN IN HANDS BILATERALLY, STATES IT IS ALLEVIATED TO 8/10 WITH MEDICATION. BP LOW, MONITORING, PO FLUIDS ENCOURAGED UP TO 1500 ML RESTRICTION. DIALYSIS THIS DATE, PATIENT LEFT UNIT APPROX 1500 TO DIALYSIS. PATIENT PARTICIPATING IN THERAPY. TOLERATING REPOSITIONING AND FLOATING HEELS OFF BED DURING DAY BUT REFUSING TURNING AT NIGHT. LOW AIRLOSS MATRESS ORDERED. FALL PRECAUTIONS IN PLACE. WILL CONTINUE TO MONITOR.
--- NOTE | 2018-06-05 16:30 | NUR ---
PT. HAS DIALYSIS AT [facility] ([facility]) DCP FAXED DIALYSIS FLOW SHEETS TO CLINIC LEFT MSG WITH ADM. THAT FLOWSHEETS FAXED. DCP TO FOLLOW.
[2018-06-05 20:06] VITALS: BP 100/67
--- NOTE | 2018-06-06 04:16 | NUR ---
PATIENT REFUSES TO TURN AND SLEEPS FLAT ON HIS BACK WITH WITH HOB UP 25 DEGREES WITH CPAP AND O2 SAT MONITOR. LOW AIR LOSS MATRESS PUMP. PAIN MED AT 2100 WHEN INITIATING CPAP WITH PLAN TO STOP IT AT O600 AND BE READY FOR THE DAY
[2018-06-06 07:30] VITALS: BP 95/55
--- NOTE | 2018-06-06 11:14 | NUR ---
ASSUMED CARES AT 0700. PT IN BED, AWAKE, ALERT AND ORIENTED*4. DENIES PAIN THIS AM. VITALS REMAIN STABLE. O2 SATS >95 ON 6L OXYGEN VIA NC. PT CONTINUES TO HAVE A WOUND IN HIS BUTTOCK AND R POSTERIOR THIGH, ENCOURAGED TO REPOSITION Q2H AND LAY ON THE SIDE MORE. PT CONTINUES TO MAINTAIN 1500CC FLUID RESTRICTION. UP WITH 1 PERSON MIN ASSIST, AMBULATING WITH THERAPY AND TOLERATED WELL. Q1H VISUAL CHECKS. CALL LIGHT WITHIN REACH. FALL PRECAUTIONS IN PLACE
--- NOTE | 2018-06-06 15:34 | NUR ---
laurence spoke with cecile with [facility]. " he will need to bring blanket and medication on his dialysis days, gin marrero sat 2nd shift at 10 am"/cecile. information provided that he will need help setting up transportation to and from tx and pt has stated he will take cab or uber. " ok going to send over [employer] pearl that needs to be started now and then can croatian when he comes to clinic, start date 06/12/18, last few pages need to be completed by dr or nurse."/ceciel. received pearl and will pass on to 5n team and pt to complete. laurence spoke with his sister miriam rt dcp, transportation, compliance with outpt dialysis. "thank you for returning my call and i will remind my brother of these things as well"/miriam.
[2018-06-06 20:22] VITALS: BP 105/67
--- NOTE | 2018-06-07 04:41 | NUR ---
PAIN MED AT HS, RESTING WELL OVERNIGHT WITH CPAP. DULCOLAX SUPPOSITORY BY REQUEST, RESULTED ONLY IN FLATUS.
[2018-06-07 07:45] VITALS: BP 87/55
[2018-06-07 09:10] VITALS: BP 94/52
--- NOTE | 2018-06-07 10:27 | NUR ---
ASSUMED CARES AT 0700. PT AWAKE, ALERT AND ORIENTED*4. DENIES PAIN. BP LOW THIS AM, HOSPITALIST NOTIFIED, PT ENCOURAGED TO DRINK MORE FLUIDS. MAINTAINED 1500CC FLUID RESTRICTION. BP RECHECKED 1 HR LATER 94/52, WILL CONTINUE TO MONITOR. PT HAD A LARGE BM THIS AM, ABDOMEN SOFT AND DISTENDED, BS ACTIVE*4. . ON 6L OXYGEN VIA NC WITH SATS >95%. SKIN REMAINS DRY AND SCALY, LOTION APPLIED ON BACK AND EXTREMITIES. PT UP WITH 1 PERSON MIN ASSIST, AMBULATED THE HALLWAYS WITH THERAPY AND TOLERATED WELL. PT LEAVING FOR HEMODIALYSIS THIS AFTERNOON. Q1H VISUAL CHECKS. CALL LIGHT WITHIN REACH. FALL PRECAUTIONS IN PLACE
[2018-06-07 17:00] VITALS: BP 105/60
[2018-06-07 19:40] VITALS: BP 105/61
--- NOTE | 2018-06-08 02:20 | NUR ---
ASSUMED CARE OF PT AT 1915. PT IS ALERT AND ORIENTED X4. C/O BILAT HAND PAIN, GIVEN OXYCODONE AT HS. BIPAP PLACED AT HS BY RESP THERAPIST, CONTINUOUS SAT MONITOR IN PLACE. ASSESSMENT COMPLETED. PT REFUSES TO REPOSITION, STATES HE CAN ONLY SLEEP ON HIS BACK. RIGHT TESSIO CATH INTACT. BLOOD SUGAR AT YM=293, 25 UNITS LANTUS GIVEN PER ORDER. HAS APPEARED TO BE SLEEPING WHEN CHECKED ON HOURLY ROUNDS. FALL PRECAUTIONS IN PLACE.
[2018-06-08 08:05] VITALS: BP 88/49
--- NOTE | 2018-06-08 10:08 | NUR ---
ASSUMED CARE AT 0700. PATIENT IS ALERT AND ORIENTED X4. PATIENT GALE'S, DIVISION MANAGER ARE EQUAL. LUNGS ARE CLEAR. ABD IS SOFT WITH BSX 4. PATIENT IS UP TO THE BATHROOM WITH ASSIST OF 1 STAFF, GAIT BELT AND WALKER TO HAVE BM. PATIENT IS ANURIC. PATIENT IS ON HEMODIALYSIS. PATIENT HAS A RIGHT TESSIO ACCESS FOR DIALYSIS. PATIENT IS ON 1500 CC FLUID RESTRICTION. FALL AND SAFETY PROTOCOLS IN PLACE. C/O PAIN IN HIS BACK. MEDICATED WITH PRN PAIN MEDS. CONTINUES TO PROGRESS TOWARDS D/C GOALS. WILL CONTINUE TO MONITER.
--- NOTE | 2018-06-08 19:08 | HC ---
[facility] [place] [address] CONSULTATION Name: MARISELA QUINONEZ Room #: 514-P [facility] IN M.R.#: [id number] Admission: 05/30/18 Attend Phys: Blaine Núñez MD Discharge: Date of : 64 Report #: [id number] THIS REPORT FOR: //name// CC: Blaine Núñez [facility] physician/PCP DATE OF SERVICE: 06/01/2018 NEUROBEHAVIORAL STATUS EXAMINATION ATTENDING PHYSICIAN: Blaine Núñez MD CITY CLERK: Jeet Santoro, PhD CLINICAL PRESENTATION: The patient is a 57-year-old male admitted to the [facility] Rehabilitation Unit for a comprehensive inpatient rehabilitation program to improve functional mobility, activities of daily living and self-care and mental status secondary to deficits from acute on chronic congestive heart failure. The patient's diagnoses include acute on chronic hypoxemic respiratory failure, medical complexity with generalized debilitation, end-stage renal disease, severe pulmonary hypertension with cor pulmonale, morbid obesity, diabetes mellitus, obstructive sleep apnea and paroxysmal atrial fibrillation. A complete description of his medical condition and history can be found in his medical record. Neuropsychological consultation was requested to provide assistance in the assessment of cognitive and emotional status and to provide recommendations and services. Prior to this most recent admission, the patient was living alone and independent with driving and instrumental activities of daily living. He reports an amnestic episode surrounding his initial hospitalization. His description of events include him feeling ill and then awakening in ICU. He is a single male, never . He is a high school graduate with a two year resident associate degree. 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 The patient has 2 sisters and 1 brother. One brother is . TECHNIQUES UTILIZED: Clinical interview, review of medical records, staff consultation and behavioral observation, mini mental status exam 2 standard version and clock drawing and verbal fluency assessment (letter and category). EXAMINATION FINDINGS: The patient was alert and cooperative with the assessment. He accurately described events requiring hospitalization, although he does have an amnestic episode during his initial admission and treatment. He does not report anxiety or depression or difficulty with memory, word finding, sleep or appetite. Mild degree of irritability is described as he is feeling angry at himself for the poor manner in which he had been managing his health care. Occasional use of cannabis is reported. There is no report of [address] [address] CONSULTATION Name: MARISELA QUINONEZ Room #: 514-P [facility] IN M.R.#: [id number] Admission: 05/30/18 Attend Phys: Blaine Núñez MD Discharge: Date of : 64 Report #: [id number] auditory or visual hallucinations or evidence of aphasia. His performance on the MMSE 2 standard version is within normal limits with a raw score 27/30. The patient was 16/16 for the brief version. He was 3/3 for initial registration, 5/5 for orientation to time and place and 3/3 for immediate recall of 3 items after a brief time delay and distraction. The patient was unable to accurately copy a simple geometric design. Difficulty with visual spatial construction is suggested. Clock drawing suggests some mild deficit. Letter fluency was in the low average range with a T score of 40, which is at the 16th percentile. Category fluency assessed by animal was in the low average range with a T score of 37. The patient is presenting with mild variability in cognition. Deficits are suggested in verbal fluency, sustained attention and concentration and visual spatial construction. Mild anxiety is also suggested. DIAGNOSTIC IMPRESSION: Mild neurocognitive disorder, unspecified, with mild degree of irritability. Unspecified Anxiety Disorder RECOMMENDATIONS: The patient will benefit from the use of compensatory strategies to assist in compensation for variable cognition. While he is alert and oriented, some difficulty with thought organization, planning, problem solving and visual spatial organization, may require additional assistance. Mild degree of anxiety is suggested, which may be underlying intermittent irritability. Use of relaxation techniques along with help in acknowledging the manner in which he can use this experience as an opportunity for improving the management of his health. Thank you very much for allowing me to provide the consultation on this patient. <ELECTRONICALLY SIGNED> By: Jeet Santoro, PhD 06/08/18 1908 21 [id number] Jeet Santoro, PhD /nt
[2018-06-08 19:34] VITALS: BP 96/53
--- NOTE | 2018-06-09 03:25 | NUR ---
PT LYING IN BED. OXY IR PROVIDING PAIN RELIEF. REST COMFORTABLY. NO NEEDS VOICED. CALL LIGHT WITHIN REACH. WILL CONTINUE TO PROVIDE FREQUENT OBSERVATION.
[2018-06-09 08:00] VITALS: BP 97/57
--- NOTE | 2018-06-09 11:30 | NUR ---
cm notified that pt had form he wanted cm to fill out and send to his insurance, pt working with therapy and visited with him, " -04 claim form"/pt, education that cm doesnt not fill out those form, will check and let him know. cm went back to let him know we do not fill those out from cm team. kenneth called [employer] on speaker and rep was asking for um04 form aka detailed itemized bill. education with kenneth that he will need to get that from billing office. " ok thank you"/jorden. will cont following as needed for dc needs. will cont following as needed for dc needs. pt did fill out marcial ride form with ot over weekend, needing pages 6 & [address], plate and frame filter operator or unite power project manager [facility].
--- NOTE | 2018-06-09 12:53 | NUR ---
Nutrition: pt seen per followup. Continues to eat well, 75-100% of meals. BG controlled. No questions/concerns for RD. Low nutrition risk.
--- NOTE | 2018-06-09 20:15 | NUR ---
ASSUMED PT CARE AT 0700H. PT A&O X4. PT STATES PAIN ON HANDS. PT TOLERATES MEDS AND MEALS. PT ON NC 6.0L. PT USES WALKER. PT PARTICIPATES WITH THERAPY. PT HAS BUTTOCK SKIN TEAR TREATED X2. PT HAS A R TESSO C/D/I. PT ON FLUID RESTRICITON 1500ML. PT CALLS APPROPRIATELY. PT CONTINUES TO BE MONITORED FOR SAFETY.
[2018-06-09 20:49] VITALS: BP 103/61
--- NOTE | 2018-06-10 06:45 | NUR ---
c/o severe pain in bilateral hands. able to sleep after given PO PRN med. BIPAP on while asleep. has dialysis T-TH-Sat. right external dialysis cath to right chest dressing intact.
[2018-06-10 08:51] VITALS: BP 96/58
--- NOTE | 2018-06-10 11:00 | NUR ---
ASSUMED CARES AT 0700. PT AWAKE, ALERT AND ORIENTED*4. DENIES PAIN AT THIS TIME. BP LOW THIS AM SBP 86, 96, HOSPITALIST NOTIFIED AND WILL CONTINUE TO MONITOR. PT SCHEDULED FOR HEMODIALYSIS THIS AFTERNOON. LS COARSE, O2 SATS>95% ON 6L OXYGEN VIA NC, RECEIVING BREATHING TREATMENTS Q4H. ABDOMEN SOFT AND SLIGHTLY DISTENDED. LAST BM 06/07. PT CONTINUES TO HAVE EDEMA IN BLE AND MILD EDEMA ON THE HANDS. QIH VISUAL CHECKS. CALL LIGHT WITHIN REACH. FALL PRECAUTIONS IN PLACE
--- NOTE | 2018-06-10 13:54 | NUR ---
team meeting, recommendation : dc , home health ( nursing, pt, ot, sw), out[facility] dialysis [facility] pt will need to bring blanket and medication on dialysis days.
[2018-06-10 20:00] VITALS: BP 101/61
--- NOTE | 2018-06-11 04:08 | NUR ---
ASSUMED CARE OF PT AT 1915. PT ALERT AND ORIENTED X4. TRANSFERRED TO ROOM 516 ON RECOMMENDATION OF MAINTAINANCE WORKER. ALL BELONGINGS MOVED WITH PT. PT C/O CONSTIPATION, DULCOLAX SUPP GIVEN WITH MOD AMOUNT SOFT BM. OXYCODONE GIVEN X1 FOR C/O BILAT HAND PAIN. PT IS MODIFIED INDEPENDENT IN HIS ROOM. BIPAP PLACED AT HS. PT HAS APPEARED TO BE SLEEPING WHEN CHECKED ON HOURLY ROUNDS.
[2018-06-11 07:30] VITALS: BP 116/57
[2018-06-11] MEDS ORDERED: GLIPIZIDE ER2.5 MG PO (09:31)
[2018-06-11] MEDS ORDERED: TYLENOL325 MG PO (09:31)
[2018-06-11] MEDS ORDERED: PROTONIX40 M1 PO (09:31)
[2018-06-11] MEDS ORDERED: COLACE100 MG PO (09:31)
[2018-06-11] MEDS ORDERED: OXYCODONE HCL10 MG PO (09:32)
[2018-06-11] MEDS ORDERED: PROCRIT20000 UNIT SUBQ (09:32)
[2018-06-11 09:38] VITALS: BP 134/66
--- NOTE | 2018-06-11 09:41 | NUR ---
PT. DISCHARGING TODAY TO HOME WITH [facility] HH. SPOKE WITH JOSE IN ADM. SHE WILL NOTIFY PT. OF TIME OF VISITS. PT. TO HAVE PT/OT/RN/SW WITH HH. UNIT NOTIFIED HH SET UP WITH [facility].
--- NOTE | 2018-06-11 09:42 | NUR ---
CM SPOKE WITH PT, RT UNABLE TO QUALIFY FOR BARIATRIC [facility] RT GUIDE LINES SAY WT BE 350LBS. THERAPY WITH WORK WITH MARISELA WITH [facility]. PT PICKED [facility] FOR HH SERVICE. PT FRIEND WILL PICK HIM UP BETWEEN 10-1200. PT HAS GARY RIDE PAPER WORK TO BRING WITH [facility]. RE-EDUCATION ON BRING MEDICATION IN BOTTLES AND BLANKET TO DIALYSIS. CHECKED TO SEE IF HAS RIDE FOR TOMORROW. " I WILL BE THERE BY 10 AM AND WILL TAKE A UBER TO GET HERE"/MARISELA. [facility] REFERRAL TO BE SENT, AND ABLE TO ACCEPT HIM FOR HH SERVICES.
--- NOTE | 2018-06-11 10:57 | NUR ---
ASSUMED CARE AT 0700. PATIENT IS ALERT AND ORIENTEDX4. MAIL TECHNICIAN ARE EQUAL. GALE'S. LUNGS ARE CLEAR. ABD IS SOFT WITH BSX4. PATIENT HAS A RIGHT TESSIO CATHETER FOR DIALYSIS. PATIENT HAS +2 EDEMA IN HIS LOWER EXTREMITIES. PATIENT HAD BM TODAY. FALL AND SAFETY PROTOCOLS IN PLACE. DENIES PAIN AT THIS TIME. CONTINUES TO PROGESS SLOWLY TOWARDS D/C GOALS. WILL D/C LATER TODAY. WILL CONTINUE TO MONITER.
[2018-06-11 11:50] VITALS: BP 134/66
--- NOTE | 2018-06-11 14:47 | NUR ---
D/C INSTRUCTION, SCRIPTS AND ALL OF THE PATIENTS BELONGING ARE PACKED UP AND WILL BE D/C'D WITH HIM. PATIENT WILL GO HOME ON AT 6L/NC. PATIENT LEFT UNIT IN GOOD CONDITION. PATIENT WILL DIALYSIZE AT [facility].
== END 2018-06-11 15:07 | disposition home health service (06) | DRG 91 ==
LOC: ENTRNSPT 06-10 12:32 → EDTRNSPTSTS 06-10 12:35 → EDTRNSPTTYP 06-11 14:54 → EDTRNSPT 06-11 14:54
PROVIDERS: Nurse Practitioner; Nurse Practitioner Family; ADMIT Physical Medicine & Rehabilitation
PROC: 5A09357 Assistance with Respiratory Ventilation, Less than 24 Consecutive Hours, Continuous Positive Airway Pressure (ICD-10-PCS; principal; 2018-05-30)
PROC: 5A09357 Assistance with Respiratory Ventilation, Less than 24 Consecutive Hours, Continuous Positive Airway Pressure (ICD-10-PCS; 2018-05-31)
PROC: 5A09357 Assistance with Respiratory Ventilation, Less than 24 Consecutive Hours, Continuous Positive Airway Pressure (ICD-10-PCS; 2018-06-01)
PROC: 5A09357 Assistance with Respiratory Ventilation, Less than 24 Consecutive Hours, Continuous Positive Airway Pressure (ICD-10-PCS; 2018-06-02)
PROC: 5A09357 Assistance with Respiratory Ventilation, Less than 24 Consecutive Hours, Continuous Positive Airway Pressure (ICD-10-PCS; 2018-06-03)
PROC: 5A1D70Z Performance of Urinary Filtration, Intermittent, Less than 6 Hours Per Day (ICD-10-PCS; 2018-06-03)
PROC: 5A09357 Assistance with Respiratory Ventilation, Less than 24 Consecutive Hours, Continuous Positive Airway Pressure (ICD-10-PCS; 2018-06-04)
PROC: 5A1D70Z Performance of Urinary Filtration, Intermittent, Less than 6 Hours Per Day (ICD-10-PCS; 2018-06-05)
PROC: 5A09357 Assistance with Respiratory Ventilation, Less than 24 Consecutive Hours, Continuous Positive Airway Pressure (ICD-10-PCS; 2018-06-05)
PROC: 5A09357 Assistance with Respiratory Ventilation, Less than 24 Consecutive Hours, Continuous Positive Airway Pressure (ICD-10-PCS; 2018-06-06)
PROC: 5A1D70Z Performance of Urinary Filtration, Intermittent, Less than 6 Hours Per Day (ICD-10-PCS; 2018-06-07)
PROC: 5A09357 Assistance with Respiratory Ventilation, Less than 24 Consecutive Hours, Continuous Positive Airway Pressure (ICD-10-PCS; 2018-06-07)
PROC: 5A09357 Assistance with Respiratory Ventilation, Less than 24 Consecutive Hours, Continuous Positive Airway Pressure (ICD-10-PCS; 2018-06-08)
PROC: 5A09357 Assistance with Respiratory Ventilation, Less than 24 Consecutive Hours, Continuous Positive Airway Pressure (ICD-10-PCS; 2018-06-09)
PROC: 5A1D70Z Performance of Urinary Filtration, Intermittent, Less than 6 Hours Per Day (ICD-10-PCS; 2018-06-10)
PROC: 5A09357 Assistance with Respiratory Ventilation, Less than 24 Consecutive Hours, Continuous Positive Airway Pressure (ICD-10-PCS; 2018-06-10)
PROC: 5A09357 Assistance with Respiratory Ventilation, Less than 24 Consecutive Hours, Continuous Positive Airway Pressure (ICD-10-PCS; 2018-06-11)
DX: G72.81 Critical illness myopathy (principal); I50.23 Acute on chronic systolic (congestive) heart failure; J96.21 Acute and chronic respiratory failure with hypoxia; N18.6 End stage renal disease; Z68.41 Body mass index [BMI] 40.0-44.9, adult; R53.81 Other malaise; I27.22 Pulmonary hypertension due to left heart disease; I27.81 Cor pulmonale (chronic); E66.01 Morbid (severe) obesity due to excess calories; G47.33 Obstructive sleep apnea (adult) (pediatric); I48.0 Paroxysmal atrial fibrillation; E11.22 Type 2 diabetes mellitus with diabetic chronic kidney disease; E87.70 Fluid overload, unspecified; Z99.2 Dependence on renal dialysis; G31.84 Mild cognitive impairment of uncertain or unknown etiology; F41.9 Anxiety disorder, unspecified; E03.9 Hypothyroidism, unspecified; Z82.49 Family history of ischemic heart disease and other diseases of the circulatory system; Z60.2 Problems related to living alone; Z93.0 Tracheostomy status; E11.42 Type 2 diabetes mellitus with diabetic polyneuropathy; L89.891 Pressure ulcer of other site, stage 1
CPT/HCPCS: 10112; 32100

== ENCOUNTER 2018-11-12 20:46 | Inpatient (IN) | payer OTHER ==
[~2018-11-12] VITALS: Ht 177.8 cm; Wt 121.6 kg
[~2018-11-12 20:46] MED LIST changes: +COLACE100 MG PO; +PROCRIT20000 UNIT SUBQ; +PROTONIX40 M1 PO
[2018-11-12 21:01] VITALS: BP 87/49
[2018-11-12 22:53] LABS: ABSOLUTE NEUTROPHILS 5.2 thou/uL (1.4-8.2); BASOPHILS 0.6 % (0.0-2.0); EOSINOPHILS 0.9 % (0.0-3.0); HEMATOCRIT 32.1 % (42.0-52.0); HEMOGLOBIN 10.1 gm/dL (14.0-18.0); LYMPHOCYTES 18.4 % (24.0-44.0); MCHC 31.4 g/dL (28.0-37.0); MCV 89.4 fL (80.0-100.0); MONOCYTES 8.5 % (1.0-8.0); PLATELET COUNT 263 thou/uL (150-400); POLYS 71.6 % (36.0-66.0); RBC 3.59 mil/uL (4.50-6.00); RDW 20.8 % (10.5-14.5); WBC 7.3 thou/uL (4.0-11.0)
[2018-11-12 23:08] LABS: ALBUMIN 2.6 g/dL (3.4-5.0); ANION GAP 13 mmol/L (7-16); BUN 47 mg/dL (7-18); CALCIUM 7.9 mg/dL (8.5-10.1); CHLORIDE 93 mmol/L (98-107); CO2 26 mmol/L (21-32); CREATININE 6.2 mg/dL (0.7-1.3); POTASSIUM 4.1 mmol/L (3.5-5.1); SGOT 19 U/L (15-37); SGPT 15 U/L (30-65); SODIUM 132 mmol/L (136-145); TOTAL BILIRUBIN 0.3 mg/dL (<0.1-1.0); TOTAL PROTEIN 8.5 g/dL (6.4-8.2); TROPONIN-I <0.06 ng/mL (<0.06)
[2018-11-12 23:09] LABS: GLUCOSE 552 mg/dL (74-106)
[2018-11-13] VITALS (9 sets, daily range): BP systolic 99–133; BP diastolic 53–101
[2018-11-13 05:47] LABS: HEMATOCRIT 30.5 % (42.0-52.0); HEMOGLOBIN 9.7 gm/dL (14.0-18.0); MCH 27.9 pg (26.0-34.0); MCHC 31.8 g/dL (28.0-37.0); RBC 3.47 mil/uL (4.50-6.00); RDW 20.5 % (10.5-14.5); WBC 6.6 thou/uL (4.0-11.0)
[2018-11-13 05:58] LABS: CALCIUM 7.8 mg/dL (8.5-10.1); CREATININE 6.8 mg/dL (0.7-1.3); POTASSIUM 4.3 mmol/L (3.5-5.1)
--- NOTE | 2018-11-13 06:13 | NUR ---
PT WAS AN ER ADMIT WHO WAS ADMITTIED FOR SOA, WOUND INFECTION. PT IS STABLE. PT IS ON OXYGEN. PT IS STABLE. ADMISSION ASSESSMENT AND EDUCATION SIGNED PT IS STABLE. PICTURE OF WOUN TAKEN. SCHEDULED MEDS ADMINISTERED TO PT. DENIES ANY NEED AT THIS TIME
--- NOTE | 2018-11-13 09:53 | EKG ---
[place] [address] [facility] [place] [address] ELECTROCARDIOGRAM REPORT Name: MARISELA QUINONEZ Room #: 213-P ADM IN M.R.#: [id number] ������������������ Admission: 11/13/18 ������������������ Attend Phys: Ariel Antony MD Discharge: ������������������ Date of : 64 Report #: [id number] ����������������������������������������������������������������� [id number] THIS REPORT FOR: //name// [facility] ED Test Date: 2018-11-12 Test Time: 21:46:33 Pat Name: MARISELA QUINONEZ Department: Room: 213 Gender: M Trust Officer: JEFFERSON : 1960 Requested By: Lynn Kunz Order Number: [id number] MD: David Godoy Measurements Intervals [place] Rate: 91 P: -6 IA: 198 QRS: 44 QRSD: 84 T: 79 QT: 399 QTc: 492 Interpretive Statements Sinus rhythm Atrial premature complex Borderline prolonged IA interval Borderline prolonged QT interval Compared to ECG 05/22/2018 12:00:21 Atrial premature complex(es) now present Electronically Signed On 11-13-2018 9:52:54 CDT by David Godoy [email or web address] ��������������������������������������������� <ELECTRONICALLY SIGNED> ���������������������������������������� By: David Godoy MD, [facility] ��������������������������������������������� 11/13/18 0952 [id number] David Godoy MD, [facility] /EPI
--- NOTE | 2018-11-13 14:27 | NUR ---
VSS-AFEBRILE. LUNGS, CLEAR/DIMINISHED IN ALL HULL BILATERALLY. NO URINE THIS SHIFT. OOB WITH WALKER AND SBA, AMBULATED AROUND ROOM STEADILY. LEFT, SECOND TOE REMAINS SWOLLEN, RED, AND SORE. 5LNC IN PLACE, WEAR THIS LEVEL AT HOME WELL. FALL PRECAUTIONS IN PLACE, CALLS APPROPRIATELY FOR ANY NEEDED ASSISTANCE.
--- NOTE | 2018-11-14 03:51 | NUR ---
1900, PT ALERT AND ORIENTED. DENIES PAIN. VITALS STABLE. ON CPAP THROUGHT THE NIGHT. DIALYSIS FISTULA BRUIT PRESENT. PT REMAINS SR ON ACCESS REP. L TOE WOUND OPEN TO AIR WITHOUT ANY PAIN. NO OTHER COMPLAINS REPORTED. WILL CONTINUE TO FOLLOW PLAN OF CARE.
[2018-11-14 04:45] VITALS: BP 108/65
[2018-11-14 08:41] VITALS: BP 117/65
--- NOTE | 2018-11-14 08:48 | HC ---
[facility] [place] [address] CONSULTATION Name: JAQUELIN MAJORNO Room #: 213-P [facility] IN M.R.#: [id number] Admission: 11/13/18 ������������������ Attend Phys: Ariel Antony MD Discharge: ������������������ Date of : 64 Report #: [id number] THIS REPORT FOR: //name// CC: Ariel Major REASON FOR THE CONSULTATION: End-stage renal disease. REASON FOR THE PRESENTATION: Left middle toe swelling and pain. HISTORY OF PRESENT ILLNESS: Very well-known patient to me, 58 years old, with history of end-stage renal disease, maintained on hemodialysis. He had some issues with wounds, swelling and pain on the left middle toe that he noticed yesterday. This was associated with foul-smelling discharge. He has been going to his dialysis as usual. Unfortunately, the patient had some issues with noncompliance. When he presented yesterday, his blood sugar was in the 500 range. He denies that he has been taking any diabetic medications. PAST MEDICAL HISTORY: 1. Diabetes mellitus. 2. End-stage renal disease. 3. Hypertension. 4. Hypothyroidism. 5. Recent AV fistula. 6. Obstructive sleep apnea. 7. Hernia repair. 8. Remote history of tracheostomy. 9. Coronary artery disease. 10. AFib. MEDICATIONS: 1. Levothyroxine. 2. EPO. 3. Pantoprazole. 4. Chlorthalidone. FAMILY HISTORY: Significant for diabetes mellitus and hypertension. ALLERGIES: None. SOCIAL HISTORY: Denies drug or alcohol abuse. REVIEW OF SYSTEMS: GENERAL: No fever or chills. CARDIOVASCULAR: No chest pain or palpitation. PULMONARY: No cough or hemoptysis. GASTROINTESTINAL: No nausea or vomiting. [facility] [address] [place] [address] CONSULTATION Name: MARISELA MAJOR Room #: 213-P [facility] IN M.R.#: [id number] Admission: 11/13/18 ������������������ Attend Phys: Ariel Antony MD Discharge: ������������������ Date of : 64 Report #: [id number] GENITOURINARY: No frequency, no urgency. MUSCULOSKELETAL: As per the history of present illness. PHYSICAL EXAMINATION: GENERAL: He is alert, oriented. VITAL SIGNS: Blood pressure is 124/62, temperature is 36.7. HEAD AND NECK: No jugular venous distention, no bruit, no thyromegaly. CHEST: Right IJ catheter. LUNGS: Decreased air entry bilaterally, with crackles. CARDIOVASCULAR: No rub detected. ABDOMEN: Soft, nontender. LOWER EXTREMITIES: Wound over the left middle toe. LABORATORY DATA: Sodium 135, BUN is 52, creatinine is 6.8 and blood sugar is 268. ASSESSMENT, IMPRESSION AND PLAN: 1. Left middle toe wound. 2. End-stage renal disease. 3. Diabetes mellitus. 4. Hypertension. 5. Noncompliance. 6. We will arrange for the patient to have his usual hemodialysis every Saturday, Saturday and Saturday. 7. Wound care consultation. 8. MRI. 9. Resume his outpatient medications. 10. Blood sugar control. ��������������������������������������������� <ELECTRONICALLY SIGNED> ���������������������������������������� By: Shi Jay MD ��������������������������������������������� 11/14/18 0848 0716 1044 Shi Jay MD /nt
--- NOTE | 2018-11-14 09:11 | HC ---
[facility] [place] [address] CONSULTATION Name: MARISELA QUINONEZ Room #: 213-P [facility] IN M.R.#: [id number] Admission: 11/13/18 ������������������ Attend Phys: Ariel Antony MD Discharge: ������������������ Date of : 64 Report #: [id number] THIS REPORT FOR: //name// CC: Ariel Garciaothy Pedrito DATE OF SERVICE: 11/13/2018 ATTENDING PHYSICIAN: Ariel Antony MD REASON FOR CONSULTATION: Antibiotic management. HISTORY OF PRESENT ILLNESS: The patient is a 58-year-old -Gabonese man, admitted through the Emergency Room with a left third toe infection of a couple of days. The patient had some pain and wondering how long he has to stay here. He apparently is diabetic and renal failure on hemodialysis for several months. The patient denies having a recollection of having had trauma to the left third toe. Wondering if he needs an amputation. DRUG ALLERGIES: None listed. MEDICATIONS: The patient is currently on treatment with vancomycin 500 mg post-hemodialysis 3 times a week. I added Rocephin 1 g IV daily for coverage of gram-negative organisms. He is also on treatment with subcutaneous heparin 5000 units b.i.d., levothyroxine 200 mcg p.o. daily, pantoprazole 40 mg p.o. daily, Atrovent and albuterol inhalation treatments q.i.d., insulin lispro per sliding scale, morphine sulfate p.r.n., hydrocodone bitartrate p.r.n., dextrose and glucagon p.r.n. hypoglycemia, p.r.n. acetaminophen and p.r.n. ondansetron. PAST MEDICAL HISTORY: Diabetes mellitus for many years. Chronic renal failure on hemodialysis through a mature left arm AV fistula. Obstructive sleep apnea. Abdominal wall hernia repair. Coronary artery disease, myocardial infarction in 2003. Hypertension. Cor pulmonale. Hypothyroidism. Previous episode of gout. History of paroxysmal atrial fibrillation. SOCIAL HISTORY: See H and P and old records. FAMILY HISTORY: See H and P and old records. REVIEW OF SYSTEMS: Noncontributory. PHYSICAL EXAMINATION: GENERAL: A well-developed, mildly overweight -Gabonese man in no distress. VITAL SIGNS: Presenting with the following vital signs: Temperature 97.7, pulse 72, respirations 16, BP 104/64, height 5 feet 10 inches and weight [address] [address] CONSULTATION Name: MARISELA QUINONEZ Room #: 213-P ADM IN M.R.#: [id number] Admission: 11/13/18 ������������������ Attend Phys: Ariel Antony MD Discharge: ������������������ Date of : 64 Report #: [id number]. HEENMT: Missing teeth, periodontal disease in need of dental extractions. NECK: Supple, no thyromegaly. LUNGS: Clear to auscultation. HEART: S1, S2. No gallop or murmur. ABDOMEN: Surgical scars. No recollection, may be an hernia. No masses or megaly. GENITALIA AND RECTAL: Deferred. EXTREMITIES: Left arm AV fistula. Left third toe deformed with possible displacement of toenail. The temperature of left foot is increased compared to the right. The left posterior tibialis pulses are readily palpable. I cannot feel dorsalis pedis. LABORATORY DATA: Sodium 132, potassium 4.1, BUN 47, creatinine 6.2 and glucose 552, 362. Albumin 2.6 g/dL. Lactic acid 2.9. NT-proBNP 1800. WBC 7.3, hemoglobin 10.1 and platelets 263,000. White blood cell count differential 71% segmented neutrophils. Needs ESR and CRP. Blood cultures are negative. X-rays revealed no obvious bone destruction. RADIOLOGY EVALUATION: MRI or CT scan of foot pending. ASSESSMENT: 1. Left third toe infection, rule out osteomyelitis. 2. Cellulitis, left foot. 3. Uncontrolled diabetes mellitus. 4. End-stage renal disease on hemodialysis. 5. Hypoalbuminemia. 6. Coronary artery disease, previous myocardial infarction and history of paroxysmal atrial fibrillation. SUGGESTIONS: Recommend MRSA screen by PCR. ESR. CRP. Continue vancomycin, add ceftriaxone for gram-negative coverage. The patient may need surgical intervention at least partial toe amputation should there be osteomyelitis. Dr. Antony, thank you for requesting my suggestions. ��������������������������������������������� <ELECTRONICALLY SIGNED> ���������������������������������������� By: Messi Desai MD ��������������������������������������������� 11/14/18 0911 0909 1224 Messi Desai MD /nt
--- NOTE | 2018-11-14 09:33 | NUR ---
PT IS A&0X4, WEARS 02 AT HOME, CHRONIC, AMB STEADY IN SPITE OF LEFT TOE ISSUE. DENIES ANY PAIN AT THIS TIME, UNDERGOING DIALYSIS CURRENTLY, WILL ADM IV ABX UPON COMPLETION LATE AND WILL REPORT OFF WHEN GIVEN SO WE CAN MAINTAIN CONSISTENT TIME IN BETWEEN DOSES. ENCOURAGED PT TO USE CALL LIGHT FOR ANY NEEDS. SEE INTERVENTIONS FOR ASSESSMENT
[2018-11-14 16:00] VITALS: BP 106/69
--- NOTE | 2018-11-14 18:16 | NUR ---
CALL DR. CABRERA W/MRI RESULTS WHEN DONE [phone]. HE ASKED TO BE CALLED AND THE MRI WAS NOT DONE TODAY
[2018-11-14 19:15] VITALS: BP 114/54
[2018-11-15 04:00] VITALS: BP 91/98
--- NOTE | 2018-11-15 04:00 | NUR ---
PT HAD NO CONCERN OVER NIGHT OTHER THAN WHEN THE MRI OF HIS FOOT WAS GONNA BE DONE. PT DENIES PAIN. ALERT AND ORIENTED. VITALS STABLE. CPAP DURING THE NIGHT. DENIES NAUSEA , VOMITING , DIARRHEA. WILL CONTINUE TO FOLLOW PLAN OF CARE.
[2018-11-15 07:50] VITALS: BP 99/59
[2018-11-15 11:51] VITALS: BP 109/69
[2018-11-15 15:22] VITALS: BP 138/50
--- NOTE | 2018-11-15 16:42 | NUR ---
PT ASSESSED AT START OF SHIFT. MRI COMPLETED SHOWING OSTEOMYLITIS IN LT MIDDLE TOE. DR. SOUZA TALKED W/ PT OVER THE PHONE IN HIS ROOM TO INFORM MRI RESULTS. PT WANTING TO THINK ABOUT NEED FOR AMPUTATION. DR. RUTLEDGE NOTIFIED PT WANTING TO GO HOME WHEN HE IS ABLE. DR. RUTLEDGE UPDATED W/ MRI RESLUTS AND STATES TO INFORM PT HE WILL TALK TO HIM ABOUT PLAN OF CARE TOMORROW ON ROUNDS.
[2018-11-15 19:59] VITALS: BP 99/56
[2018-11-15 20:09] VITALS: BP 99/56
[2018-11-16 04:23] VITALS: BP 126/71
--- NOTE | 2018-11-16 05:30 | NUR ---
PT CONCERNED ABOUT HIS FOOT. PT WISHES MORE DOCTORS OPINION BEFORE MAKING DECISION. OTHERWISE NO OTHER CONCERNS OVER NIGHT. VITALS STABLE. DENIES PAIN. WILL CONTINUE 2O MONITOR.
[2018-11-16] MEDS ORDERED: VANCO 500500 MG/100 IV (08:51)
[2018-11-16] MEDS ORDERED: GLIPIZIDE ER2.5 MG PO (08:51)
[2018-11-16] MEDS ORDERED: CEFUROXIME500 MG PO (08:51)
[2018-11-16 10:41] VITALS: BP 126/71
--- NOTE | 2018-11-16 11:41 | NUR ---
PATIENT CARE ASSUMED AT 7AM, ASSESSMENT CHARTED, VSS, ALERT AND ORIENTED X4, 4L O2 NC, PATIENT DISCHARGED TO HOME AND GIVEN DISCHARGE INSTRUCTIONS AND PRESCRIPTIONS, STATED UNDERSTANDING. PATIENT TRANSPORTED BY WHEELCHAIR TO SECURITY TO PICK PATIENTS VAN.
== END 2018-11-16 11:44 | disposition home or self-care (01) | DRG 637 ==
LOC: ER 20:46 → EROBS 11-13 00:35 → 2N 11-13 00:35
PROVIDERS: Nurse Practitioner Family; ADMIT Hospitalist
PROC: 5A1D70Z Performance of Urinary Filtration, Intermittent, Less than 6 Hours Per Day (ICD-10-PCS; principal; 2018-11-13)
PROC: 5A09357 Assistance with Respiratory Ventilation, Less than 24 Consecutive Hours, Continuous Positive Airway Pressure (ICD-10-PCS; principal; 2018-11-13)
PROC: 5A09357 Assistance with Respiratory Ventilation, Less than 24 Consecutive Hours, Continuous Positive Airway Pressure (ICD-10-PCS; 2018-11-14)
PROC: 5A09357 Assistance with Respiratory Ventilation, Less than 24 Consecutive Hours, Continuous Positive Airway Pressure (ICD-10-PCS; 2018-11-15)
DX: E11.69 Type 2 diabetes mellitus with other specified complication (principal); E43 Unspecified severe protein-calorie malnutrition; I13.2 Hypertensive heart and chronic kidney disease with heart failure and with stage 5 chronic kidney disease, or end stage renal disease; M86.8X7 Other osteomyelitis, ankle and foot; E11.621 Type 2 diabetes mellitus with foot ulcer; N18.6 End stage renal disease; E03.9 Hypothyroidism, unspecified; I50.9 Heart failure, unspecified; E66.9 Obesity, unspecified; M10.9 Gout, unspecified; I25.10 Atherosclerotic heart disease of native coronary artery without angina pectoris; I48.0 Paroxysmal atrial fibrillation; E11.22 Type 2 diabetes mellitus with diabetic chronic kidney disease; E11.65 Type 2 diabetes mellitus with hyperglycemia; G47.33 Obstructive sleep apnea (adult) (pediatric); L03.032 Cellulitis of left toe; E88.09 Other disorders of plasma-protein metabolism, not elsewhere classified; E11.649 Type 2 diabetes mellitus with hypoglycemia without coma; D64.9 Anemia, unspecified; L97.529 Non-pressure chronic ulcer of other part of left foot with unspecified severity; Z68.38 Body mass index [BMI] 38.0-38.9, adult; I25.2 Old myocardial infarction; Z79.899 Other long term (current) drug therapy; Z83.3 Family history of diabetes mellitus; Z82.49 Family history of ischemic heart disease and other diseases of the circulatory system; Z91.19 Patient's noncompliance with other medical treatment and regimen; Z99.81 Dependence on supplemental oxygen
CPT/HCPCS: 10081; 32100

== ENCOUNTER 2018-11-27 03:15 | Emergency (ER) | payer OTHER ==
[~2018-11-27] VITALS: Ht 177.8 cm; Wt 121.6 kg
[~2018-11-27 03:15] MED LIST changes: +CEFUROXIME500 MG PO; +VANCO 500500 MG/100 IV
[2018-11-27 03:56] LABS: ABSOLUTE NEUTROPHILS 3.9 thou/uL (1.4-8.2); BASOPHILS 0.6 % (0.0-2.0); EOSINOPHILS 1.9 % (0.0-3.0); HEMATOCRIT 35.5 % (42.0-52.0); HEMOGLOBIN 11.4 gm/dL (14.0-18.0); LYMPHOCYTES 31.1 % (24.0-44.0); MCHC 32.2 g/dL (28.0-37.0); MCV 86.9 fL (80.0-100.0); MONOCYTES 8.9 % (1.0-8.0); PLATELET COUNT 301 thou/uL (150-400); POLYS 57.5 % (36.0-66.0); RBC 4.08 mil/uL (4.50-6.00); RDW 20.5 % (10.5-14.5); WBC 6.9 thou/uL (4.0-11.0)
[2018-11-27 04:03] LABS: CALCIUM 8.3 mg/dL (8.5-10.1); CREATININE 6.5 mg/dL (0.7-1.3); POTASSIUM 3.8 mmol/L (3.5-5.1)
[2018-11-27 04:07] LABS: MAGNESIUM 1.9 mg/dL (1.8-2.4); PHOSPHORUS 5.8 mg/dL (2.5-4.9)
[2018-11-27] MEDS ORDERED: ULTRAM 50MG TAB50 MG PO (05:05)
[2018-11-27] MEDS ORDERED: BENADRYL25 MG PO (05:05)
[2018-11-27 05:20] VITALS: BP 97/56
== END 2018-11-27 05:20 | disposition home or self-care (01) ==
LOC: ER 03:15
PROVIDERS: Emergency Medicine
DX: L29.9 Pruritus, unspecified (principal); R20.2 Paresthesia of skin; E66.9 Obesity, unspecified; I13.0 Hypertensive heart and chronic kidney disease with heart failure and stage 1 through stage 4 chronic kidney disease, or unspecified chronic kidney disease; I50.9 Heart failure, unspecified; N18.4 Chronic kidney disease, stage 4 (severe); E11.22 Type 2 diabetes mellitus with diabetic chronic kidney disease; M10.9 Gout, unspecified; E03.9 Hypothyroidism, unspecified

== ENCOUNTER 2018-11-30 17:10 | Emergency (ER) | payer OTHER ==
[~2018-11-30] VITALS: Ht 177.8 cm; Wt 121.6 kg
[~2018-11-30 17:10] MED LIST changes: +BENADRYL25 MG PO
[2018-11-30] MEDS ORDERED: PREDNISONE 20 M20 MG PO (18:06)
[2018-11-30 19:11] LABS: ABSOLUTE NEUTROPHILS 3.8 thou/uL (1.4-8.2); BASOPHILS 0.5 % (0.0-2.0); EOSINOPHILS 2.2 % (0.0-3.0); HEMATOCRIT 33.6 % (42.0-52.0); HEMOGLOBIN 10.7 gm/dL (14.0-18.0); LYMPHOCYTES 30.8 % (24.0-44.0); MCH 27.6 pg (26.0-34.0); MCHC 31.8 g/dL (28.0-37.0); MONOCYTES 8.7 % (1.0-8.0); PLATELET COUNT 217 thou/uL (150-400); POLYS 57.8 % (36.0-66.0); RBC 3.86 mil/uL (4.50-6.00); RDW 21.2 % (10.5-14.5); WBC 6.5 thou/uL (4.0-11.0)
[2018-11-30 19:17] LABS: CALCIUM 7.9 mg/dL (8.5-10.1); POTASSIUM 3.9 mmol/L (3.5-5.1)
[2018-11-30 19:22] LABS: ALBUMIN 3.1 g/dL (3.4-5.0); MAGNESIUM 2.4 mg/dL (1.8-2.4); TOTAL BILIRUBIN 0.3 mg/dL (<0.1-1.0); TOTAL PROTEIN 8.5 g/dL (6.4-8.2)
[2018-11-30 19:45] VITALS: BP 111/66
--- NOTE | 2018-11-30 19:58 | EKG ---
[address] [place] [address] ELECTROCARDIOGRAM REPORT Name: QUINONEZMARISELA Room #: REG Armando#: [id number] ������������������ Admission: 11/30/18 ������������������ Attend Phys: Discharge: ������������������ Date of : 64 Report #: [id number] ����������������������������������������������������������������� [id number] THIS REPORT FOR: //name// [facility] ED Test Date: 2018-11-30 Test Time: 17:40:20 Pat Name: MARISELA QUINONEZ Department: Room: Gender: Abby [employer] Preparer: DIANN : 1960 Requested By: Robin Hernandez Order Number: [id number] MD: González Desai Measurements Intervals [place] Rate: 83 P: 93 MD: 206 QRS: 37 QRSD: 113 T: 84 QT: 442 QTc: 520 Interpretive Statements Sinus rhythm Borderline prolonged MD interval Borderline intraventricular conduction delay Prolonged QT interval Compared to ECG 11/12/2018 21:46:33 Atrial premature complex(es) no longer present Electronically Signed On 11-30-2018 19:57:42 CDT by González Desai [email or web address] ��������������������������������������������� <ELECTRONICALLY SIGNED> ���������������������������������������� By: González Desai MD ��������������������������������������������� 11/30/181956 39 39 González Desai MD /JUDY
[2018-11-30 20:34] LABS: ANISOCYTOSIS 2+
[2018-11-30 20:35] LABS: MACROCYTES FEW; POLYCHROMASIA SLIGHT
== END 2018-11-30 20:08 | disposition home or self-care (01) ==
LOC: ER 17:10
PROVIDERS: Emergency Medicine
DX: L29.9 Pruritus, unspecified (principal); I13.0 Hypertensive heart and chronic kidney disease with heart failure and stage 1 through stage 4 chronic kidney disease, or unspecified chronic kidney disease; I50.9 Heart failure, unspecified; N18.4 Chronic kidney disease, stage 4 (severe); E11.22 Type 2 diabetes mellitus with diabetic chronic kidney disease; E66.9 Obesity, unspecified; G47.30 Sleep apnea, unspecified; I25.10 Atherosclerotic heart disease of native coronary artery without angina pectoris; I48.91 Unspecified atrial fibrillation; E03.9 Hypothyroidism, unspecified; M10.9 Gout, unspecified; Z99.2 Dependence on renal dialysis; Z68.38 Body mass index [BMI] 38.0-38.9, adult

== ENCOUNTER 2019-09-14 13:45 | Emergency (ER) | payer OTHER ==
[~2019-09-14] VITALS: Ht 177.8 cm; Wt 139.7 kg
[2019-09-14] MEDS ORDERED: GLIPIZIDE 10 MG10 MG PO (14:05)
[2019-09-14 15:29] LABS: ABSOLUTE NEUTROPHILS 5.7 thou/uL (1.4-8.2); BASOPHILS 0.4 % (0.0-2.0); HEMATOCRIT 37.6 % (42.0-52.0); LYMPHOCYTES 13.9 % (24.0-44.0); MCH 28.8 pg (26.0-34.0); MCHC 31.9 g/dL (28.0-37.0); MCV 90.4 fL (80.0-100.0); MONOCYTES 6.6 % (1.0-8.0); PLATELET COUNT 252 thou/uL (150-400); POLYS 78.1 % (36.0-66.0); RBC 4.16 mil/uL (4.50-6.00); WBC 7.3 thou/uL (4.0-11.0)
[2019-09-14 15:37] LABS: CALCIUM 8.3 mg/dL (8.5-10.1); CREATININE 9.6 mg/dL (0.7-1.3); POTASSIUM 4.1 mmol/L (3.5-5.1)
[2019-09-14 15:43] LABS: ALBUMIN 3.1 g/dL (3.4-5.0); TOTAL BILIRUBIN 0.5 mg/dL (<0.1-1.0); TOTAL PROTEIN 9.2 g/dL (6.4-8.2)
[2019-09-14] MEDS ORDERED: SYNTHROID200 MCG PO (16:57)
[2019-09-14 19:17] VITALS: BP 87/61
== END 2019-09-14 18:23 | disposition home or self-care (01) ==
LOC: ER 13:45
PROVIDERS: Physician Assistant
DX: K59.00 Constipation, unspecified (principal); R06.02 Shortness of breath; I13.0 Hypertensive heart and chronic kidney disease with heart failure and stage 1 through stage 4 chronic kidney disease, or unspecified chronic kidney disease; E11.22 Type 2 diabetes mellitus with diabetic chronic kidney disease; N18.4 Chronic kidney disease, stage 4 (severe); E03.9 Hypothyroidism, unspecified; E66.9 Obesity, unspecified; I25.10 Atherosclerotic heart disease of native coronary artery without angina pectoris; M10.9 Gout, unspecified; Z91.14 Patient's other noncompliance with medication regimen; Z99.2 Dependence on renal dialysis

== ENCOUNTER 2019-10-10 09:33 | Inpatient (IN) | payer OTHER ==
[~2019-10-10] VITALS: Ht 172.7 cm; Wt 137.6 kg
[2019-10-10 09:33] VITALS: BP 83/42
[~2019-10-10 09:33] MED LIST changes: +GLIPIZIDE 10 MG10 MG PO
[2019-10-10] MEDS ORDERED: RENAL-VITE TAB0.8 MG PO (09:39)
[2019-10-10 11:28] LABS: ANION GAP 5 mmol/L (7-16); BUN 40 mg/dL (7-18); CALCIUM 8.8 mg/dL (8.5-10.1); CHLORIDE 92 mmol/L (98-107); CO2 30 mmol/L (21-32); CREATININE 7.9 mg/dL (0.7-1.3); GLUCOSE 272 mg/dL (74-106); SODIUM 127 mmol/L (136-145); TROPONIN-I <0.06 ng/mL (<0.06)
[2019-10-10 11:30] LABS: POTASSIUM 5.3 mmol/L (3.5-5.1)
[2019-10-10 11:38] LABS: ABSOLUTE NEUTROPHILS 6.7 thou/uL (1.4-8.2); BASOPHILS 0.7 % (0.0-2.0); EOSINOPHILS 0.9 % (0.0-3.0); HEMATOCRIT 33.9 % (42.0-52.0); HEMOGLOBIN 10.4 gm/dL (14.0-18.0); LYMPHOCYTES 16.9 % (24.0-44.0); MCH 28.7 pg (26.0-34.0); MCHC 30.7 g/dL (28.0-37.0); MCV 93.6 fL (80.0-100.0); MONOCYTES 6.1 % (1.0-8.0); PLATELET COUNT 293 thou/uL (150-400); POLYS 75.4 % (36.0-66.0); RBC 3.62 mil/uL (4.50-6.00); RDW 20.6 % (10.5-14.5); WBC 8.9 thou/uL (4.0-11.0)
[2019-10-10 12:33] LABS: ANISOCYTOSIS 1+
[2019-10-10 14:46] VITALS: BP 73/41
[2019-10-10 16:35] VITALS: BP 100/43
--- NOTE | 2019-10-10 19:22 | NUR ---
Pt arrived to unit per cart from emergency dept around 1700 in stable condition.Admission hx and eduction completed.Pt alert and oriented to self and place.Dinner given and piv initiated.Report off to madelyn rn.
[2019-10-10 20:01] VITALS: BP 103/59
[2019-10-11 04:13] VITALS: BP 93/57
--- NOTE | 2019-10-11 05:37 | NUR ---
PATIENT ALERT AND ORIENTED X4. DANGLING ON SIDE OF BED THIS AM. SLEPT WITH CPAP AND 2LNC AT TIMES. PATIENT USES THESE AT HOME. NO SOA NOTED. IVF INFUSING PER ORDER. REMAINS ON TELE NSR. BLOOD SUGAR MONITORED PER ORDER. FISTULA POSITIVE FOR BRUITT AND THRILL. WOUND TO ABDOMEN DOCUMENTED PER ORDER. PATIENT STATES THAT HE ONLY USES A WALKER ON DIALYSIS DAYS OTHERWISE HE WALKS INDEPENDENTLY. PATIENT IS VERY NERVOUS ABOUT DETERIORATING TO NOT BEING ABLE TO WALK - THIS NURSE STATED THAT PT WILL BE WORKING WITH HIM. RESTING QUIETLY AT TIME OF NOTE. WILL MONITOR.
[2019-10-11 06:35] LABS: ALBUMIN 2.9 g/dL (3.4-5.0); ANION GAP 12 mmol/L (7-16); BUN 50 mg/dL (7-18); CALCIUM 7.9 mg/dL (8.5-10.1); CHLORIDE 95 mmol/L (98-107); CO2 24 mmol/L (21-32); GLUCOSE 213 mg/dL (74-106); PHOSPHORUS 6.9 mg/dL (2.5-4.9); SODIUM 131 mmol/L (136-145); TROPONIN-I <0.06 ng/mL (<0.06)
[2019-10-11 06:37] LABS: CREATININE 8.9 mg/dL (0.7-1.3)
[2019-10-11 06:38] LABS: POTASSIUM 5.6 mmol/L (3.5-5.1)
[2019-10-11 08:00] VITALS: BP 100/60
--- NOTE | 2019-10-11 10:59 | NUR ---
Assessment completed.vss.bp better today.Assisted pt with tray setup.Good appetite noted.Dr Merida here and order noted.Pt wanted cont.sat monitor dc'd.Rt notified and was dc'd.Pt report that tv wasn't working.Maintenance paged.Pt was sr per telemetry.No c/o pain or soa at present.Will continue to monitor.
--- NOTE | 2019-10-11 11:33 | EKG ---
[facility] [place] [address] ELECTROCARDIOGRAM REPORT Name: MARISELA MAJOR Room #: 464-P ADM IN M.R.#: [id number] Admission: 10/10/19 Attend Phys: Librado Merida Discharge: Date of : 64 Report #: [id number] THIS REPORT FOR: cc: Parrish Major MD, Timothy W. MD Couchonnal, Luis F. MD ~ THIS REPORT FOR: //name// [facility] ED Test Date: 2019-10-10 Test Time: 10:32:21 Pat Name: MARISELA MAJOR Department: Room: [facility] Gender: M Pig [facility]eder[facility] 1960 Requested By: Maciej Orozco Order Number: [id number] : González Desai Measurements Intervals [place] Rate: 77 P: 59 UT: 216 QRS: 74 QRSD: 101 T: 59 QT: 443 QTc: 502 Interpretive Statements Sinus rhythm Prolonged UT interval Prolonged QT interval Compared to ECG 11/30/2018 17:40:20 No significant changes Electronically Signed On 10-11-2019 11:31:09 CDT by González Desai [email or web address] <ELECTRONICALLY SIGNED> By: González Desai MD 10/11/19 1131 1032 1032 González Desai MD /EPI
[2019-10-11 14:00] VITALS: BP 123/87; BP 83/45; BP 98/55
[2019-10-11 20:04] VITALS: BP 115/75
[2019-10-12 04:03] VITALS: BP 85/51
[2019-10-12 07:24] VITALS: BP 83/41
--- NOTE | 2019-10-12 10:53 | NUR ---
Assess due to RD consult received for poor intake. Hx ESRD, CHF, DM, pulmonary HTN. Admit with hypotension and dizziness. Visited while receiving dialysis this am. States good appetite and always hungry. Dry wt from chart review noted as 137kg/301 lb and current wts trending 308-320 lb. Other past admissions wts were closer to 295 lb. Pt voiced no questions or no specific food preferences. Low nutrition risk
[2019-10-12 12:29] VITALS: BP 105/40
[2019-10-12 12:30] VITALS: BP 77/43; BP 83/38
--- NOTE | 2019-10-12 14:59 | NUR ---
chart review. cm consult. cm visited with kenneth via phone call. intro to cm, and transition of care ie rehab and home health. " i want to go to rehab here, just want to be able to stand and walk again with out falling. after being in bed all weekend gotten weaker, rehab here is good. live in house alone. independent prior to. manage own medication. drive[facility]. have life alert not sure if have batteries in it. have o2 and bipap ( function with out problems ) - [facility]. usually only have to use walker after dialysis but been having to use fww more often ( functions and is no broken). no support. have friends. had hh in past"/kenneth. will cont following as needed for dc needs.
--- NOTE | 2019-10-12 20:14 | NUR ---
Assumed pt care this am, Pt had diyalysis for most of the day. Pt is very anxious and aggitated on wanting to get more dialysis and to keep his blood pressure up. POC followed, medications and diet are tolerated well. On 5l of O2 via NC. endorsed to the night nurse.
[2019-10-12 21:27] VITALS: BP 101/65
[2019-10-13 05:02] VITALS: BP 94/58
[2019-10-13 07:30] VITALS: BP 98/64
--- NOTE | 2019-10-13 12:17 | 2DMMODE ---
[facility] [place] [address] 2 D/M-MODE ECHOCARDIOGRAM Name: MARISELA MAJOR Room #: 464-P ADM IN M.R.#: [id number] Admission: 10/10/19 Attend Phys: Librado Merida Discharge: Date of : 64 Report #: [id number] THIS REPORT FOR: cc: Parrish Major MD, Timothy W. MD Lundgren, Craig H. MD [facility] ~ APPROVED REPORT Study performed: 10/13/2019 11:18:28 EXAM: Comprehensive 2D, Doppler, and color-flow Echocardiogram Patient Location: Bedside Room #: 464 Status: routine BSA: 2.43 HR: 73 bpm BP: 98/64 mmHg Rhythm: NSR Other Information Study Quality: Adequate Indications Hypotension Diabetes CAD Hypertension/HDD 2D Dimensions RVDd: 66.26 mm IVSd: 13.95 (7-11mm) LVOT Diam: 19.93 (18-24mm) LVDd: 43.34 mm PWd: 13.87 (7-11mm) Ascending Ao: 34.41 (22-36mm) LVDs: 33.83 (25-40mm) Aortic Root: 34.13 mm IVC: 27.00 mm Volumes Left Atrial Volume (Systole) Single Plane 4CH: 133.29 mL Single Plane 2CH: 103.46 mL LA ESV Index: 57.00 mL/m2 Aortic Valve AoV Peak Maciej.: 1.44 m/s [facility] [address] [place] [address] 2 D/M-MODE ECHOCARDIOGRAM Name: MARISELA MAJOR Room #: 464- ADM IN M.R.#: [id number] Admission: 10/10/19 Attend Phys: Librado Gloria Discharge: Date of : 64 Report #: [id number] AO Peak Gr.: 8.24 mmHg LVOT Max P.24 mmHg LVOT Max V: 1.03 m/s SIGIFREDO Vmax: 2.24 cm2 Mitral Valve E/A Ratio: 1.4 MV Decel. Time: 237.72 ms MV E Max Maciej.: 0.92 m/s MV A Maciej.: 0.66 m/s MV PHT: 68.94 ms IVRT: 73.82 ms Pulmonary Valve PV Peak Maciej.: 1.17 m/s PV Peak Gr.: 5.49 mmHg Pulmonary Vein P Vein S: 0.36 m/s P Vein A: 0.32 m/s P Vein D: 0.54 m/s P Vein A Dur.: 83.0 msec P Vein S/D Ratio: 0.67 Tricuspid Valve TR Peak Maciej.: 3.92 m/s TR Peak Gr.: 61.53 mmHg PA Pressure: 72.00 mmHg Left Ventricle The left ventricle is normal size. Flattened septum consistent with right ventricular volume and pressure overload. Mild concentric left ventricular hypertrophy. The left ventricular systolic function is normal. The left ventricular ejection fraction is within the normal range. LVEF is 60-65%. This study is not technically sufficient to allow evaluation of the LV diastolic function. Right Ventricle Right ventricle is dilated. Right ventricle is hypokinetic. Atria Left atrium is dilated. Right atrium is dilated. Aortic Valve The aortic valve is mildly sclerotic. Not well visualized. No aortic regurgitation is present. There is no aortic valvular stenosis. Mitral Valve [facility] [address] [place] [address] 2 D/M-MODE ECHOCARDIOGRAM Name: MARISELA MAJOR Room #: 464-P ADM IN M.R.#: [id number] Admission: 10/10/19 Attend Phys: Librado Gloria Discharge: Date of : 64 Report #: [id number] The mitral valve is normal in structure. There is no mitral valve regurgitation noted. No evidence of mitral valve stenosis. Tricuspid Valve The tricuspid valve is normal in structure. There is moderate to severe tricuspid regurgitation. Estimated PAP 70 mmHg. There is severe pulmonary hypertension. Pulmonic Valve The pulmonary valve is normal in structure. Mild to moderate pulmonic regurgitation. Great Vessels The aortic root is normal in size. IVC is dilated and collapses <50% with inspiration. Pericardium There is no pericardial effusion. <Conclusion> The left ventricular systolic function is normal. Flattened septum consistent with right ventricular volume and pressure overload. LVEF is 60-65%. Right ventricle is dilated and hypokinetic Both atria are dilated. The aortic valve is mildly sclerotic. Not well visualized. No aortic regurgitation or stenosis. The mitral valve is normal in structure. No mitral valve regurgitation There is moderate to severe tricuspid regurgitation. Estimated pulmonary artery pressure of 70 mmHg. There is no pericardial effusion. <ELECTRONICALLY SIGNED> By: David Godoy MD, FACC 10/13/19 1215 1215 14 David Godoy MD, FACC /INF
--- NOTE | 2019-10-13 13:43 | NUR ---
WOUND CONSULT; ASSESSMENT OF THE ABDOMINAL WOUND WAS COMPLETED. THE PERIWOUND IS SCARED. THE THE PATIENT HAS HAD THE WOUND MANY YEARS. THERE IS SCANT GREEN DRAINAGE AND NO ODOR. THE PATIENT DENIES PAIN. RECOMMENDATIONS; WOUND CARE TO ABDOMINAL WOUND: CLEANSE WOUND WITH NS OR WOUND CLEANSER, PACK AQUACEL AG TO WOUND BED, COVER WITH A BORDER FOAM, DAILY/PRN DISCUSSED WITH SALVATORE
--- NOTE | 2019-10-13 14:11 | NUR ---
PT AND THERAY TEAM INDICATING THAT PT WOULD BENEFIT FROM 5N CONSULT. 5N CONSULTED. CM TO FOLLOW INDICATED WITH DC PLANNING.
[2019-10-13 15:03] VITALS: BP 93/58
[2019-10-13 19:28] VITALS: BP 101/58
--- NOTE | 2019-10-13 20:32 | NUR ---
Received awake on bed. Due medications given as prescribed, able to swallow meds w/o difficulty. On O2 at 5lpm via nasal cannula, using CPAP at night. A+Ox4. On renal diet, tolerating well; no nausea, no vomiting and no abdominal pain. On telemetry- strips attached to chart; no complaints of chest pain made the whole shift. On blood sugar monitoring- taken and recorded accordingly; with sliding scale insulin. Vital signs stable- Bp slightly low- with scheduled midodrine. With dialysis fistula at L upper arm; dialysis schedule --. Pt anuric, continent of bowels. Able to go to the toilet with standby assist and walker. Assisted in ADLs. With abdominal wound- wound consult place, seen by Wound nurse, dressing changed, orders made. For PT/OT evaluation, possible discharge to 5N- consult called in by US. Able to sit out on chair, participated in therapies and able to walk in the hallway. No complaints of pain made the whole shift. To continue monitoring patient.
--- NOTE | 2019-10-14 08:29 | NUR ---
Pt. rested quietly at intervals during the night when checked on during frequent rounds. Pt. 02 was increased to 8 liters per nasal canula after he c/o some shortness of air. Go to find out his o2 was on incorrectly. This was corrected and 02 sats have been in the mid 90's. Bed alarm is on.
[2019-10-14 08:32] VITALS: BP 93/33
--- NOTE | 2019-10-14 14:24 | NUR ---
PATIENT HAS BEEN ACCEPTED FOR ACUTE REHAB STAY FOR 5N PENDING INSURANCE AUTHORIZATION AND BED AVAILABILITY. AUTHORIZATION REQUESTED THIS DATE. PENDING AUTH NUMBER IS [id number]. WILL AWAIT INSURANCE RESPONSE. THANK YOU FOR THIS REFERRAL.
[2019-10-14 15:33] VITALS: BP 99/60
--- NOTE | 2019-10-14 19:44 | NUR ---
PT A&OX4, VSS, DENIES PAIN. PATIENT HAS DIALYSIS TODAY, 3017 ML OFF. BLOOD PRESSURE REMAINS SOFT, MIDODRINE SCHEDULED. PATIENT WORKED WITH PT/OT. PATIENT TOLERATING DIET. NO SIGNS OF DISTRESS. WILL CONTINUE TO MONITOR.
[2019-10-14 19:45] VITALS: BP 91/44
[2019-10-15 03:18] VITALS: BP 103/54
--- NOTE | 2019-10-15 04:19 | NUR ---
Pt. rested quietly during the night when checked on during frequent rounds. He offers no c/o pain. O2 saturations in the upper 90's all shift with 02 at 8 liters. Bed alarm is on.
[2019-10-15 07:20] VITALS: BP 88/54
[2019-10-15] MEDS ORDERED: MIDODRINE HCL 55 M1 PO (10:14)
[2019-10-15] MEDS ORDERED: MIRALAX17 GM PO (10:14)
[2019-10-15] MEDS ORDERED: HUMALOG100 UNIT/1 SUBQ (10:14)
--- NOTE | 2019-10-15 15:27 | NUR ---
AWAITING INSURANCE AUTH FOR PT TO GO TO 5N. CARE TEAM INDICATED THAT PT IS MEDICALLY STABLE TO DC TODAY SOON AUTH IS OBTAINED. CM TO FOLLOW INDICATED WITH DC PLANNING.
[2019-10-15 16:24] VITALS: BP 99/65
--- NOTE | 2019-10-15 19:22 | NUR ---
Received awake on bed. Due medications given as prescribed, able to swallow meds w/o difficulty. On O2 at 8lpm via nasal cannula, using CPAP at night. On telemetry- no complaints of chest pain, no crushing sensation and heaviness. On renal diet- tolerating well, no nausea, no vomiting and no abdominal pain noted. On blood sugar monitoring- taken and recorded accordingly; with sliding scale insulin prescribed- given as ordered. With left upper arm fistula, + thrill and + bruit; M-W-F; dressing in place. With SL at R AC- intact. With abdominal wound- dressing C/D/I. Able to go to the toilet using walker, gait belt and oxygen. Assisted in ADLs. Falls bundle in place. Pt seen and examined by Dr Merida, discharge orders made- called KEEGAN still a/w authorization to go to 5N- pt was anxious at first, updated re: process. Able to sit out on the chair most of the day. Blood pressure monitored- on mid to low 90's. To continue monitoring patient.
[2019-10-15 19:45] VITALS: BP 121/61
--- NOTE | 2019-10-16 05:10 | NUR ---
PATIENT HAS SAT AT EDGE OF BED AT LEAST TWICE OVERNIGHT. REQUIRING AT LEAST 8 LITERS BLED INTO CPAP WITH O2 SAT MONITOR ALARMING MOST WHEN SLEEPING WITH HOB UP LESS THAN TEN DEGREES. PLEASANT AND HOPING TO GO TO REHAB SOON. STATES WILL TAKE MIRALAX TOMORROW AFTER DIALYSIS, HIS LAST BM WAS ON 10/12.
[2019-10-16 06:04] VITALS: BP 96/44
--- NOTE | 2019-10-16 14:21 | NUR ---
WOUND CARE F/U; TODAY THE ABDOMENAL WOUND IS CLINICALLY BETTER. NO S/S OF INFECTION. PATIENT IS EATING WELL AND COMMUNICATING APPROPRIATLY. NO OTHER ISSUES IDENTIFIED. RECOMMENDATIONS; TORIE TO PURACOL AG, DAILY/PRN DISCUSSED WITH RN
--- NOTE | 2019-10-16 16:59 | NUR ---
ASSUMED CARE AT 0700. PT IN DIALYSIS FROM [id number]. UPON RETURN TO FLOOR, PT IS ALERT AND ORIENTED. PIV SL WITHOUT ISSUES. TOLERATING DIET. C/O CONSTIPATION. MIRALAX GIVEN. WOUND CARE TO BE DONE M,W,F PRN. WILL CONTINUE TO MONITOR. PT IS SBA WITH A WALKER. CALL LIGHT IN REACH.
[2019-10-16 21:38] VITALS: BP 96/62
--- NOTE | 2019-10-17 03:13 | NUR ---
PATIENT ALERT AND ORIENTED X4. HOWEVER, VERY NEEDY AND HESITANT TO DO FOR HIMSELF. UP TO SIDE OF BED WITH WALKER AND 02NC. PATIENT SLEEPS WITH BIPAP WHICH ALARMS OFTEN. RT NOTIFIED AND STATED THAT DUE TO HIS TYPE OF APNEA THIS WILL HAPPEN. THIS NURSE AWAKENS PATIENT AT TIMES FOR HIS 02 LEVEL TO INCREASE AND HE GOES BACK TO SLEEP. BS MONITORED PER ORDER. DENIES PAIN. WILL MONITOR.
[2019-10-17 04:33] VITALS: BP 76/41
[2019-10-17 06:08] LABS: HEP B SURFACE Ab(ANTI-HBS Reactive (()); HEPATITIS B SURFACE AG Negative (Negative)
[2019-10-17 06:37] VITALS: BP 88/44
--- NOTE | 2019-10-17 06:37 | NUR ---
BLOOD PRESSURE THIS AM 76/41. THIS NURSE GAVE 0900 SCHEDULED MIDODRIN EARLY AND BP IS 88/44 AT TIME OF NOTE. WILL MONITOR.
[2019-10-17 08:00] VITALS: BP 97/61
[2019-10-17 15:00] VITALS: BP 103/46
--- NOTE | 2019-10-17 18:08 | NUR ---
ASSUMED CARE AT 0700. PT IS ALERT AND ORIENTED. SLEEPING ON HIS BIPAP. NO COMPLAINTS TODAY OTHER THAN CONTINUED CONSTIPATION. MIRALAX GIVEN. VSSA, KNOWN LOW BP ON MEDS. 8L O2 IS BASELINE. ON TELE NSR. TOLERATING DIET. MONITORING BLOOD SUGARS. PIV WAS LEAKING, REMOVED WITHOUT ISSUES. PT REFUSING ANOTHER AT THIS TIME. DRESSING ON ABD C/D/I. PT IS WORKING WITH PT AND IS A SBA WITH WALKER. AWAITING ACUTE REHAB PLACEMENT. WILL CONTINUE TO MONITOR
[2019-10-17 20:30] VITALS: BP 88/44
[2019-10-17 23:46] VITALS: BP 76/42
--- NOTE | 2019-10-18 05:22 | NUR ---
PATIENT ALERT AND ORIENTED X4, HOWEVER, FORGETFUL. BED ALARM SET OFF AND PATIENT FOUND IN BATHROOM WITH WALKER AND STILL ATTACHED TO PULSE OX. AT TIMES HE WILL NOT COMMUNICATE [facility] HE ACKNOWLEDGES THAT HE HEARS YOU SPEAKING TO HIM. BS MONITORED PER ORDER. BIPAP AT NIGHT. NO IV ACCESS OF YESTERDAY DAY SHIFT. ABDOMINAL WOUND DRESSING D/I. FISTULA WITH BRUITT AND THRILL. POSSIBLY TO 5N REHAB DURING THE WEEK. WILL MONITOR.
[2019-10-18 05:30] VITALS: BP 79/47
[2019-10-18 07:45] VITALS: BP 82/46
[2019-10-18 15:37] VITALS: BP 107/61
--- NOTE | 2019-10-18 18:22 | NUR ---
ASSUMED CARE AT 0700. PT IS ALERT AND ORIENTED. NO COMPLAINTS AT THIS TIME. VSS/A, KNOWN LOW BP. AND 8L O2/BIPAP AT [facility] IS BASELINE. ON TELE WITH SINUS ARRYTHMIA. PT HAD 2 LARGE BM TODAY. ANURIC. NO PIV IN PLACE, PT REFUSED NEW ONE. FISTULA IN LEFT ARM WITHOUT ISSUES. ABDOMEN WOUND DRESSING C/D/I. SBA WITH WALKER. CALL LIGHT IN REACH. WILL CONTINUE TO MONITOR
[2019-10-18 19:32] VITALS: BP 89/64
--- NOTE | 2019-10-19 04:35 | NUR ---
PATIENT ALERT AND ORIENTED X4. UP TO BATHROOM WITH WALKER AND SBA. BS MONITORED PER ORDER. BIPAP AT NIGHT WHICH ALARMS FREQUENTLY HE FALLS BELOW SETTINGS. PATIENT AWAKENED, HEAD RAISED AND INSTRUCTED TO BREATHE DEEPLY, WHICH ASSISTED IN RAISING HIS 02 SAT. WILL HAVE DIALYSIS M/W/F. LEFT UP FISTULA POSITIVE FOR BRUITT AND THRILL. DENIES PAIN. WILL MONITOR.
[2019-10-19 05:00] VITALS: BP 86/53
[2019-10-19 08:00] VITALS: BP 87/51
--- NOTE | 2019-10-19 08:36 | NUR ---
Followup: Continues to eat well, on renal, carb control diet. Wts decreasing back towards dry wt of 301 lb. Remains low nutrition risk
--- NOTE | 2019-10-19 15:30 | NUR ---
AUTH WAS FINALLY RECIEVED FOR PT TO GO TO 5N ACUTE INPATIENT REHAB THIS DAY. PT IS AWARE AND AGREEABLE. REPORT TO BE CALLED TO . NO OTHER CM INTERVENTION INTERVENTION INDICATED. CASE CLOSED.
--- NOTE | 2019-10-19 15:30 | HC ---
[facility] [place] [address] CONSULTATION Name: CRISTIANOMARISELA Room #: 464-P [facility] IN M.R.#: [id number] Admission: 10/10/19 Attend Phys: Librado Merida Discharge: Date of : 64 Report #: [id number] THIS REPORT FOR: cc: Parrish Major MD, Timothy W. MD Smithson, David G. MD ~ CC: Librado Major DATE OF SERVICE: 10/13/2019 HISTORY OF PRESENT ILLNESS: The patient is a 59-year-old -Kos[place] male who was admitted with weakness, multiple falls. He has had 3 falls within the last 24 hours. He is a premorbid dialysis patient, drives himself back and forth to dialysis. He is also on chronic oxygen 5 liters. He noted that he was having problems with his balance being off. He did have some recent diarrhea. He was diagnosed with hypotension and weakness. He was given IV fluids. His midodrine dose has been increased. He has been monitored closely by Internal Medicine and Nephrology. We are seeing him in rehabilitation medicine consultation. PAST MEDICAL HISTORY: Includes end-stage renal disease, on hemodialysis; chronic hypotension, peripheral neuropathy, congestive heart failure, pulmonary hypertension, and morbid obesity. He had a prior acute rehab stay back in early 2019 with critical illness myopathy and did quite well at that time. MEDICATIONS: Please see the full medication listing. SOCIAL HISTORY: Lives in a house alone. Premorbid walker ambulator. He does not have any steps to get in. He was driving himself back and forth to dialysis. He does have involved friends in the area. REVIEW OF SYSTEMS: He did not offer any current complaints of chest pain, shortness of breath or abdominal discomfort. ALLERGIES: No known drug allergies. PHYSICAL EXAMINATION: GENERAL: The patient is a pleasant, obese 59-year-old -Kos[place] male, in no obvious distress. VITAL SIGNS: Last recorded temperature is 36.5, pulse 73, respirations 19, blood pressure is 98/64. NEUROLOGIC: The patient is alert, pleasant, oriented. He is on nasal prong O2, 5 liters. Facies are symmetric. Good historian. He does have the exogenous obesity. Height 5 feet 8 inches, weight 309 pounds. He has functional range of motion of both upper extremities. Strength is grade 4-/5 to 3+/5. DTRs are [facility] [address] [place] [address] CONSULTATION Name: MARISELA MAJOR Room #: 464-P [facility] IN M.R.#: [id number] Admission: 10/10/19 Attend Phys: Librado Merida Discharge: Date of : 64 Report #: [id number] trace to 1. Lower extremities, no focal calf swelling, functional range of motion with strength grade 4- to 3+/5. DTRs are trace to 1. He has not gotten up yet in physical therapy and they will be getting him up later today. ASSESSMENT: A 59-year-old -Kosovan male with the following problem list: 1. Gait instability with multiple falls. 2. Medical complexity with generalized debilitation. 3. Chronic hypotension. 4. End-stage renal disease, on hemodialysis. 5. Recent episode of diarrhea. 6. Congestive heart failure. 7. Cor pulmonale. 8. History of gout. 9. Paroxysmal atrial fibrillation. 10. Sleep apnea. PLAN: Therapies will evaluate. He is very motivated to try to improve his strength and endurance and ADL independence he can return back to the home setting. He has had prior successful stays on the [address] [place] [address] [facility] and would very much like to return for another rehabilitation stay. Insurance precertification issues and bed availability issues will be checked pending and how he does with his therapy assessments. We will be glad to follow along with you regarding his rehab therapy needs. <ELECTRONICALLY SIGNED> By: Blaine Núñez MD 10/19/19 1530 1056 1400 Blaine Núñez MD /nt
--- NOTE | 2019-10-19 15:41 | NUR ---
PT. CALLED HS & REQUESTED IF HE COULD HAVE A FRIEND COME IN TO [employer] TECH SOME SOME MONEY TO GO & PAY A BILL FOR HIM. I TOOK DOWN FRIENDS NAME & ASKED WHAT TIME SHE WOULD COME BY & HE SAID AROUND 1500. AROUND 1330 FRIEND CAME TO ED ENTRANCE. I WENT UP TO PT. ROOM & HE WAS IN DIALYSIS ROOM. HE GAVE ME $200 FLORES & I BROUGHT IT DOWN TO THE FRIEND PER HIS REQUEST.
[2019-10-19 16:34] VITALS: BP 89/48
--- NOTE | 2019-10-19 20:09 | NUR ---
Received awake on bed. Due medications given as prescribed, able to swallow medications w/o difficulty. On O2 at 6-7lpm via nasal cannula during daytime, uses CPAP at night. A+Ox4, anxious. On telemetry, no complaints of chest pain, crushing sensation or heaviness. On renal diet- tolerating well, no nausea, no vomiting and no abdominal pain noted. On blood sugar monitoring- taken and recorded; with sliding scale insulin ordered- given as prescribed. With dialysis access at [facility]- dressing in place; M-W-F scheduled today; dialysis nurse here in the [facility] during shift change and said pt scheduled for today- before lunch time. Assisted in ADLs. Able to go to the toilet using walker and gait belt. Able to sit out on chair. With abdominal wound- dressing changed and photo taken. CM called and said authorization from insurance given today- for transfer to [facility] acute rehab, a/w rehab liason for report. Back to room at 1500, tolerated dialysis; transferred to room safely. To continue monitoring patient. Report to 5N SALVATORE Moore.
== END 2019-10-19 19:10 | disposition short-term general hospital (02) | DRG 314 ==
LOC: ER 09:33 → EROBS 15:14 → 4W 15:14
PROVIDERS: Emergency Medicine; Hospitalist; ADMIT Hospitalist; ATTEND Hospitalist
DX: I95.89 Other hypotension (principal); N18.6 End stage renal disease; Z68.42 Body mass index [BMI] 45.0-49.9, adult; I13.2 Hypertensive heart and chronic kidney disease with heart failure and with stage 5 chronic kidney disease, or end stage renal disease; E66.01 Morbid (severe) obesity due to excess calories; I27.20 Pulmonary hypertension, unspecified; E11.22 Type 2 diabetes mellitus with diabetic chronic kidney disease; K59.00 Constipation, unspecified; E11.42 Type 2 diabetes mellitus with diabetic polyneuropathy; G47.33 Obstructive sleep apnea (adult) (pediatric); I50.810 Right heart failure, unspecified; I25.10 Atherosclerotic heart disease of native coronary artery without angina pectoris; I48.0 Paroxysmal atrial fibrillation; I27.81 Cor pulmonale (chronic); E03.9 Hypothyroidism, unspecified; M10.9 Gout, unspecified; Z99.2 Dependence on renal dialysis; Z79.84 Long term (current) use of oral hypoglycemic drugs; I25.2 Old myocardial infarction; R29.6 Repeated falls; Z91.81 History of falling
CPT/HCPCS: 10040; 10045; 32100

== ENCOUNTER 2019-10-19 16:07 | Inpatient (IN) | payer OTHER ==
[~2019-10-19] VITALS: Ht 172.7 cm; Wt 133.8 kg
[~2019-10-19 16:07] MED LIST changes: +MIDODRINE HCL 55 M1 PO; +RENAL-VITE TAB0.8 MG PO
[2019-10-19 19:00] VITALS: BP 83/44
--- NOTE | 2019-10-19 20:04 | NUR ---
ASSUMED CARE OF PT AT 1830 WHEN PT WAS BROUGHT TO UNIT BY NURSING STAFF. RECEIVED REPORT FROM NURSE MARTINES PRIOR TO ADMISSION. ONCOMING STAFF NOTIFIED OF ADMISSION, REPORT PROVIDED TO ONCOMING NURSE. PT DENIES ANY QUESTIONS OR CONCERNS AT THIS TIME. PT A&OX4. FALL PRECAUTIONS IN PLACE AND NURSING WILL CONTINUE TO MONITOR.
[2019-10-19 23:00] VITALS: BP 93/52
--- NOTE | 2019-10-20 03:01 | NUR ---
PT ADMITTED TO [facility] THIS EVENING. ADMIT AND ASSESSMENT COMPLETED. BP RUNS LOW WHICH IS BASELINE FOR PT. INFORMED CARGO CHECKER PATITO. NO NEW ORDERS. DRESSING ON ABD DRY AND INTACT. BIPAP ON AT HS WITH CONT 02 SAT MONITOR. INSULIN GIVEN AND SNACK PROVIDED ORDERED. DIALYSIS ACCESS WNL. PT DENIES NEEDS. SLEEPING WELL. WILL CONTINUE TO MONITOR FREQUENTLY.
[2019-10-20 06:43] LABS: HEMATOCRIT 32.5 % (42.0-52.0); HEMOGLOBIN 9.8 gm/dL (14.0-18.0); MCH 27.9 pg (26.0-34.0); MCHC 30.2 g/dL (28.0-37.0); MCV 92.4 fL (80.0-100.0); RBC 3.52 mil/uL (4.50-6.00); RDW 19.9 % (10.5-14.5); WBC 6.7 thou/uL (4.0-11.0)
[2019-10-20 06:54] LABS: CREATININE 7.2 mg/dL (0.7-1.3)
[2019-10-20 07:40] VITALS: BP 93/51
--- NOTE | 2019-10-20 10:44 | NUR ---
WOUND CONSULT; ASSESSMENT OF THE ABDOMENAL WOUND. THE WOUND IS IMPROVING USING THE CURRENT TREATMENT OF PURACOL AG. THERE IS NO PAIN OR ANY S/S OF INFECTION. RECOMMENDSATION; CONTINUE CURRENT TREATMENT DISCUSSED WITH STAFF
--- NOTE | 2019-10-20 11:44 | NUR ---
chart review. cm had visited with pt on acute hospital as well. pt a & ox 3 with some forgetfulness. pleasant and able to make his needs know. going to work with therapy prior to dc home. " live home alone. manage own medication, drives, has life alert the doesnt use. goes to dialysis [facility] at [address] [facility] locations. home o2 and bipap. walker. has support from a friend. will cont following as needed for dc needs.
--- NOTE | 2019-10-20 12:31 | HC ---
[facility] [place] [address] [address] [place] [address] CONSULTATION Name: MARISELA MAJOR Room #: 506-1 ADM IN M.R.#: [id number] Admission: 10/19/19 Attend Phys: Blaine Núñez MD Discharge: Date of : 64 Report #: [id number] THIS REPORT FOR: cc: Parrish Major MD, Timothy W. MD Al-Mubaslat, Ahmad MD ~ CC: Blaine Major DATE OF SERVICE: 10/20/2019 ENDOCRINE CONSULTATION NOTE CONSULTING PHYSICIAN: Dr. Núñez. REASON FOR CONSULTATION: Uncontrolled type 2 diabetes mellitus. HISTORY OF PRESENT ILLNESS: This is a 59-year-old male patient whose medical background is significant for multiple medical issues including type 2 diabetes mellitus; end-stage renal disease, on dialysis for 18 months; pulmonary hypertension as well as chronic issues with hypotension. The patient was admitted to [facility] for over a week following a fall that he had and after the necessary care was presented, he was moved to the rehabilitation unit yesterday for physical therapy and other rehabilitative efforts. Again, the patient has type 2 diabetes mellitus that was diagnosed many years ago, the patient is treated with glipizide once daily at home and he notes that he does not check his blood glucose whatsoever at home. He denies having had issues with hypoglycemia much in the recent past. The patient is not aware of issues pertaining to diabetic retinopathy or neuropathy. He is not known to have coronary artery disease or other major cardiovascular disease. However, he does have end-stage renal disease and has been on hemodialysis for 18 months. He believes that the combination of type 2 diabetes mellitus and previous issues with hypertension might have led to his end-stage renal disease. REVIEW OF SYSTEMS: CONSTITUTIONAL: Fatigue, tiredness, but not body weight changes, fever or chills. HEENT: Negative for sore throat, sinus pain or ear drainage. PULMONARY: Occasional shortness of breath and cough, but no hemoptysis. CARDIAC: Negative for chest pain, palpitations, syncope or presyncope. GASTROINTESTINAL: Negative for abdominal pain, nausea, vomiting or changes in bowel movement frequency. [facility] [address] [place] [address] CONSULTATION Name: JAQUELIN MAJORNO Room #: 506-1 ADM IN M.R.#: [id number] Admission: 10/19/19 Attend Phys: Blaine Núñez MD Discharge: Date of : 64 Report #: [id number] NEUROLOGY: Negative for seizure activity, loss of consciousness, severe frequent headaches. DERMATOLOGY: Negative for rash, discoloration, or ulceration. PSYCHIATRIC: Negative for delusions, hallucinations. Otherwise, his review of systems is noncontributory other than those mentioned in HPI. PAST MEDICAL HISTORY: 1. Type 2 diabetes mellitus. 2. End-stage renal disease, on hemodialysis 3 days a week for the past 18 months. 3. Pulmonary hypertension. 4. Obstructive sleep apnea. 5. Morbid obesity. 6. Chronic hypertension. 7. Hypothyroidism. CURRENT MEDICATIONS: Include midodrine 10 mg t.i.d., multivitamins daily, glipizide 5 mg in a.m., Humalog supplemental scale, levothyroxine 200 mcg daily, docusate sodium 100 mg b.i.d. ALLERGIES: No known drug allergies. FAMILY HISTORY: Noncontributory. SOCIAL HISTORY: The patient lives by himself. He denies use of tobacco, alcohol or illicit drugs. PHYSICAL EXAMINATION: GENERAL: Pleasant -Mozambican male patient who is not in apparent pain or distress. VITAL SIGNS: Blood pressure is 93/51 mmHg, heart rate is 64 beats per minute, respiration 18 per minute, temperature is 36.7 degrees Celsius. CONSTITUTIONAL: The patient is lying in bed, appears comfortable, not in apparent distress. HEENT: Anicteric sclerae. Intact extraocular motions. NECK: Supple, no carotid bruits, no thyromegaly. CHEST: Noted for moderate entry bilaterally with scattered rales. No wheezes or crackles. HEART: Regular rate and rhythm without murmurs or gallops. ABDOMEN: Obese, but soft, lax. No guarding. Active bowel sounds. EXTREMITIES: Lower extremity exam is noted for trace edema. No ulceration. NEUROLOGIC: Awake, alert and oriented to time, place and person. The remainder of his examination is largely nonfocal. PSYCHIATRIC: Pleasant, interactive. Normal mood, normal affect. Normal thought process. [address] [address] CONSULTATION Name: MARISELA MAJOR Room #: 506-1 ADM IN M.R.#: [id number] Admission: 10/19/19 Attend Phys: Blaine Núñez MD Discharge: Date of : 64 Report #: [id number] LABORATORY RESULTS: Blood glucose values have ranged largely between 200 and 350 mg/dL and has had this outlook for the past several days. Sodium 132, potassium 4.0, chloride 96, CO2 of 27, anion gap 9, BUN 41, creatinine 7.2, AST 19, amylase 69, lipase 322, total bilirubin 0.5, direct bilirubin less than 0.1, calcium 8.0, phosphorus 6.9, magnesium 2.4, uric acid 14.1. ALT 11, total protein 9.2, albumin 2.9 and eGFR 10. BNP 1800. Digoxin less than 0.2. Free T4 in 10/2017 was 0.8. White blood count 6.7, hemoglobin 9.8, hematocrit 32.5. TSH on 10/10/2019 was 3.845. Hemoglobin A1c was done in 08/2016 was 5.9, one has been ordered today and is pending. ASSESSMENT AND PLAN: 1. Type 2 diabetes mellitus. Uncontrolled as per the documented blood glucose measurements during this hospital stay. Hemoglobin A1c is pending, but will be expectantly unreliable due to his end-stage renal disease and ongoing hemodialysis under which circumstances, it would be expectedly falsely lower than it should be. Based on his blood glucose values, I will start the patient on Lantus insulin 16 units daily as well as Tradjenta 5 mg q.a.m. I will maintain the current Humalog supplemental scale as well as the low dose glipizide therapy and will continue to monitor his blood glucose values before meals and at bedtime to adjust his therapy accordingly. 2. Hypothyroidism. The patient's level of thyroid control on the current levothyroxine dose of 200 mcg daily appears to be a reasonable judging by his recently obtained TSH value. He is to continue with the same. 3. End-stage renal disease. The patient has needed hemodialysis 3 days a week for the past 18 months, he is under the care of Dr. Jay for this issue. 4. Hypotension. The patient has chronic issues with hypotension and is maintained on midodrine therapy for that purpose. I will check a random cortisol level to ensure that he does not suffer adrenal insufficiency. I have reviewed the patient's clinical care notes, laboratory data, and other pertinent clinical information past and present for over 35 minutes in addition to my interview time with the patient. I certainly appreciated this consultation by Dr. Núñez. <ELECTRONICALLY SIGNED> By: Pelon Ennis MD 10/20/19 1231 1143 1215 Pelon Ennis MD /nt
--- NOTE | 2019-10-20 12:32 | NUR ---
Nutrition: Pt transferred to rehab unit. Dx gait instability with multiple falls. Hx ESRD, CHF, DM, pulmonary HTN. BG 181-329. Endocrinology follows. Hemodialysis Tues/Thurs/Sat. Dry body wt 301#. Weight have declined since acute now 302#. Eat well on Renal carb controlled diet. Has received diet educations in the past, voiced no current questions. Low nutrition risk.
[2019-10-20 19:32] VITALS: BP 87/47
--- NOTE | 2019-10-20 20:06 | NUR ---
ASSUMED CARE OF PT AT 0700. PT IS A&OX4, HYPOTENSIVE DENIES DIZZINESS, BLURRED VISION, OR LIGHTHEADEDNESS. DENIES PAIN AND PARTICIPATED IN SCHEDULED THERAPIES. DIALYSIS FISTULA TO SELINE BRUIT AND THRILL NOTED. PT UPSET AT LUNCH THAT HE WAS UNABLE TO HAVE PREFERED FOODS DUE TO DIETARY RESTRICTIONS, PROVIDER AWARE OF PT CONCERNS. ACCU CHECKS ACHS AND MANAGED WITH PO MEDICATIONS AND INSULIN. DINNER BG 60, PT DENIED SYMPTOMS OF HYPOGLYCEMIA, PT DRANK 8OZ APPLEJUICE AND ATE DINNER, RECHECKED BG 95, NO INSULIN ADMINISTERED. ORDERS FOR DIALYSIS THIS SHIFT. PT REFUSED FULL THERAPY SESSION. 1.1 L REMOVED. PT ON 6-7L O2. FALL PRECAUTIONS IN PLACE AND NURSING WILL CONTINUE TO MONITOR.
[2019-10-21 02:07] LABS: GLYCOHEMOGLOBIN (HGB A1C) 10.1 % (4.8-5.6)
--- NOTE | 2019-10-21 02:49 | NUR ---
assumed care at approx 1900 evening 10/19. pt dangling on side of bed at change of shift. pt alert and oriented x4. 02 at 6l per n/c. pt with no hs meds. pt fitted with bipap by RT and appears to be tolerating and sleeping well. continuous pulse oximeter in place with sats within normal ranges. bed alarm on and call light in reach. will continue to monitor.
[2019-10-21 05:37] VITALS: BP 89/52
[2019-10-21 08:00] VITALS: BP 89/52
[2019-10-21 19:08] VITALS: BP 83/49
--- NOTE | 2019-10-21 20:22 | NUR ---
ASSUMED CARE OF PT AT 0700. PT IS A&OX4, B/P LOW MEDICATIONS FOR HYPOTENSION GIVEN PER ORDERS . PT DENIES PAIN AND PARTICIPATED IN SCHEDULED THERAPIES. DIALYSIS FISTULA TO DERRICK POSITIVE BRUIT AND THRILL NOTED. ACCU CHECKS ACHS, MANAGED WITH PO MEDICAITONS AND INSULIN. FALL PRECAUTIONS IN PLACE AND NURSING WILL CONTINUE TO MONITOR.
--- NOTE | 2019-10-22 03:46 | NUR ---
ASSESSMENT: PT REMAIN ALERT AND ORIENT TIMES FOUR. BIPAP ON EARLY, TOLERATING WELL. DERRICK FISTULA +BRUIT/THRILL. VSS, AFEBRILE. BLOOD SUGAR 218 REFUSED HUMALOG SS INSULIN. 8 UNITS OF LANTUS GIVEN. SLOW PROGRESS TOWARDS DC GOALS, WILL CONTINUE TO MONITOR.
[2019-10-22 08:00] VITALS: BP 75/42
--- NOTE | 2019-10-22 09:02 | NUR ---
cm notified by bedside nurse that pt needs to talk with cm quickly about court today. cm spoke with kenneth via phone call, " need to fax letter to karina or shi my claims attorney for my traffic ticket, have court today and they need a letter. fax to [phone]. cm faxed letter and copy given to kenneth.
[2019-10-22 09:52] VITALS: BP 79/45
[2019-10-22 09:53] VITALS: BP 84/49; BP 91/59
--- NOTE | 2019-10-22 18:15 | NUR ---
ASSUMED PATIENT CARE AT 0700. A/O X4. TOLERATED 8L/NC. BP ON SOFT SIDE. HAD HD TODAY 2.6L FLUID MOVED. PATIENT REFUSED ASHKAN HOSE AND ABD BINDER TOO SMALL FOR PATIENT. SLOWLY TOWARDS POC GOALS.
[2019-10-22 19:30] VITALS: BP 83/49
--- NOTE | 2019-10-23 04:56 | NUR ---
UNHAPPY ABOUT HAVING CPAP ON LATE IT WAS, STATES 'THEY WATE UNTIL 11 PM TO START IT AND THEN WAKE ME UP ALL NIGHT, ACTUALLY ABLE TO STANDING SCALE WEIGH PATIENT AFTER BOWEL MOVEMENT THIS MORNING. O2 SATS FROM 80-95 WITH O2 AT 8 INCREASED TO 10. DIALYSIS Saturday
[2019-10-23 09:00] VITALS: BP 86/55
[2019-10-23 12:13] VITALS: BP 95/58
--- NOTE | 2019-10-23 14:39 | NUR ---
ASSUMED CARES AT 0700. PT AWAKE, ALERT AND ORIENTED*4. DENIES PAIN. BP REMAINS LOW SBP 80'S-90'S, PT ON MIDODRINE, REFUSING TO WEAR TEDHOSE AND ABDOMINAL BINDER. ABDOMEN FIRM AND DISTENDED, LAST REPORTED BM THIS AM, ACTIVE BS. WOUND AROUND UMBILICUS CLEANED AND DRESSING CHANGED BY WOUNDCARE RN. LS COARSE/DIM, SATS >92% ON 8-9L OXYGEN VIA NC, BIPAP WHEN ASLEEP WITH 10L O2. PT UP WITH 1 SBA, GB AND WALKER AND TOLERATES WELL. Q1H VISUAL CHECKS. CALL LIGHT WITHIN REACH. FALL PRECAUTIONS IN PLACE
[2019-10-23 17:32] VITALS: BP 83/47
[2019-10-23 20:10] VITALS: BP 99/54
--- NOTE | 2019-10-24 02:26 | NUR ---
assumed care at approx 1900 evening 10/22. pt dangling on side of bed alert and oriented x4. 02 at 10L per n/c. pt stated he had a good day. pt given snack at bedtime. pt wearing bipap at present with continuous pulse oximeter in place with sats 96%. pt appears to be sleeping soundly with hourly rounding checks. bed alarm on and call light in reach. will continue to monitor.
[2019-10-24 08:20] VITALS: BP 87/55
[2019-10-24 13:18] VITALS: BP 86/51
--- NOTE | 2019-10-24 14:20 | NUR ---
ASSUMED CARES AT 0700. PT AWAKE, ALERT AND ORIENTED*4. DENIES PAIN. BP LOW (SBP IN THE 80'S), PT IS ASYMPTOMATIC. REFUSED TO WEAR TEDHOSE AND ABDOMINAL BINDER, MIDODRINE ADMINISTERED SCHEDULED. LS COARSE, DIM IN THE BASES, ON 8L OF OXYGEN VIA NC WITH SATS >95%. REMAINS ANURIC, DIALYSIS TODAY, FISTULA ON LEFT FOREARM INTACT, THRILL AND BRUIT WNL. PT EATING 100% OF HIS MEALS. PARTICIPATED IN ALL THERAPIES AND TOLERATED WELL. UP WITH SBA, GB AND WALKER. Q1H VISUAL CHECKS. CALL LIGHT WITHIN REACH. FALL PRECAUTIONS IN PLACE
[2019-10-24 18:20] VITALS: BP 86/49
[2019-10-24 19:09] VITALS: BP 87/55
[2019-10-24 19:33] VITALS: BP 93/52
--- NOTE | 2019-10-25 01:47 | NUR ---
assumed care at approx 1900 evening 10/23. pt sitting up in bed at change of shift. 02 at 8l per n/c. pt in good mood stating he had a good day. pt stated he was hungry and yogurt and maria l crackers given as snack. pt fitted with cpap at hs and continuous pulse oximeter on. pt appears to be sleeping soundly with hourly rounding checks. bed alarm on and call light in reach. will continue to monitor.
[2019-10-25 08:00] VITALS: BP 89/49
--- NOTE | 2019-10-25 14:39 | NUR ---
ASSUMED CARES AT 0700. PT AWAKE, ALERT AND ORIENTED*4. DENIES PAIN. BP LOW, MIDODRINE ADMINISTERED PER ORDER. PT FRUSTRATED THIS AFTERNOON AND STATED/INSISTED THAT HE WOULD LIKE TO DC AMA TODAY. HE CALLED THE BANKING SERVICES CLERK FROM THE ROOM PHONE. THE CONVERSATION PRIOR TO HIS FRUSTRATION WAS FOLLOWS: MARISELA: (CALLED AND ASKED TO SPEAK WITH HIS NURSE) MARISELA: CAN I HAVE A TURKEY SANDWICH, I DID NOT LIKE ANYTHING ON MY LUNCH TRAY AND I ONLY ATE VERY LITTLE RN: I TOOK YOUR TRAY AFTER LUNCH AND YOU ATE 100% MARISELA: WELL, AM STILL HUNGRY RN: YOU ARE ON A RENAL DIET WHICH IS VERY RESTRICTIVE AND YOU NEED TO WATCH YOUR DIET CLOSELY. MARISELA: YOU ARE THE ONLY NURSE THAT CONTROLS AND BLOCKS ME FROM GETTING WHAT I WANT, OTHER PEOPLE JUST GIVE IT TO ME. IF I CAN'T HAVE MY SANDWICH I WANT TO GET OUT OF HERE. A MATTER OF FACT I WANT TO GO HOME NOW. RN: I CAN GET YOU A SANDWICH IF THATS WHAT YOU WANT BUT ITS AGAINST YOUR DIET ORDER MARISELA: CALL THE NURSE GATE TENDER AND TELL HIM I WANT TO LEAVE NOW. AM GOING TO PACK MY BAGS AND LEAVE. THE RN THEN LEFT THE ROOM AND CALLED THE KITCHEN TO DELIVER THE SANDWICH. RN THEN CALLED THE BANKING SERVICES CLERK WITHOUT AN ANSWER. RN HAD TO ASSIST ANOTHER PT AT THIS TIME AND LESS THAN 5MINS LATER CALLED THE BANKING SERVICES CLERK AND EXPLAINED THE SITUATION. BANKING SERVICES CLERK STATED THAT THE PT HAD CALLED HER AND WANTED TO LEAVE AMA. GATE TENDER CAME AND SPOKE WITH PT WHO STATED THAT HE WANTED TO LEAVE AMA BECAUSE THIS RN WAS RUDE TO HIM. HE AGREED TO STAY AND NOT LEAVE BUT WOULD LIKE TO SPEAK WITH DR DODGE IN THE MORNING. DR DODGE NOTIFIED. UP WITH LIZBETH FLORES. HOURLY ROUNDING. CALL LIGHT WITHIN REACH
[2019-10-25 20:02] VITALS: BP 86/50
--- NOTE | 2019-10-26 00:20 | NUR ---
PT ALERT AND ORIENTED X 4. BIPAP ON DURING THE NIGHT WITH 02 AT 10 L. ABD DRESSING C/D/I. BLOOD SUGAR 240 AT HS. INSULIN GIVEN ORDERED. PT DENIES PAIN OR DISCOMFORT. BED ALARM ON FOR SAFETY. PT APPEARS TO BE SLEEPING ON HOURLY ROUNDS.
[2019-10-26 07:40] VITALS: BP 82/48
--- NOTE | 2019-10-26 11:32 | NUR ---
WOUND CARE F/U; THE ABDOMEN WOUND WAS ASSESSED AND HEALTHY SKIN IS COVERING THE WOUND. THE WOUND IS HEALED. THE PATIENT REQUESTS A DRESSING ON IT TO REMAIN WHILE IN THE HOSPITAL FOR PROTECTION. RECOMMENDATION; 1-I WILL D/C THIS PATIENT FROM OUR CARE AT THIS TIME RECONSULT IF NEEDED. DISCUSSED WITH SALVATORE
--- NOTE | 2019-10-26 14:00 | NUR ---
cm spoke with pt, he getting dialysis at this time. re-education on hh for dcp tomorrow and who he pick from list of choices and how he would be getting home tomorrow . " anyone will be fine that takes my insurance and i have my car here. i will be driving home."/kenneth. refferal to be sent to [facility] at [facility].
--- NOTE | 2019-10-26 16:50 | NUR ---
FAXED REFERRAL TO [facility] SPOKE WITH KAILEY IN INTAKE SHE RECEIVED REFERRAL AND WILL ACCEPT AT [place]. ANTICIPATE DC TOMORROW 10/26.
[2019-10-26 16:51] VITALS: BP 82/48
--- NOTE | 2019-10-26 17:01 | NUR ---
ASSUMED CARE OF PT AT 0700. PT IS A&OX4, HYPOTENSIVE, PROVIDER AWARE AND TREATMENT IN PROGRESS. PT ORDERS FOR DIALYSIS THIS SHIFT DUE TO PLANS FOR D/C TOMORROW. ACCU CHECKS ACHS, MANAGED WITH PO MEDICAITONS AND INSULIN PER ORDERS. PT NON-COMPLIANT WITH DIET AND SHOWS NO INTEREST IN DIABETES EDUCATION. PT ON O2 VIA NC, HR REGULAR, LUNG SOUNDS DIMINISHED, BOWEL SOUNDS ACTIVE. DENIES PAIN AND PARTICIPATED IN SHCEDULED THERAPIES. REPORTS WANTING AN EARLY DISCHARGE. DISCUSSED DISCHARGE PLANNING AND PROCESS WITH PT. FALL PRECAUTIONS IN PLACE AND NURSING WILL CONTINUE TO MONITOR.
[2019-10-26 19:29] VITALS: BP 90/49
--- NOTE | 2019-10-27 00:44 | NUR ---
PT ALERT AND ORIENTED X 4. CPAP ON DURING THE NIGHT. ABD DRESSING C/D/I. PT DENIES PAIN OR DISCOMFORT. BED ALARM ON FOR SAFETY. PT APPEARS TO BE SLEEPING ON HOURLY ROUNDS.
[2019-10-27 07:30] VITALS: BP 93/52
[2019-10-27] MEDS ORDERED: MIDODRINE HCL 55 M1 PO (08:18)
[2019-10-27] MEDS ORDERED: LANTUS100 UNIT/M SUBQ (08:18)
[2019-10-27] MEDS ORDERED: NOVOLOG100 UNIT/1 SUBQ (08:18)
[2019-10-27] MEDS ORDERED: VITAMIN D21250 MC1 PO (08:18)
[2019-10-27] MEDS ORDERED: TRADJENTA5 MG PO (08:18)
--- NOTE | 2019-10-27 10:41 | NUR ---
PT DISCHARGING TODAY TO HOME WITH [facility] FAXED DC ORDERS/SUMMARY SPOKE WITH KAILEY IN [place] SHE RECEIVED ORDERS AND WILL NOTIFY PT TO SET UP VISITS. FAXED DC ORDERS AND DIALYSIS FLOWSHEETS TO [facility]/JUAN J RECEIVED CONFIRMATION.
--- NOTE | 2019-10-27 10:41 | NUR ---
ASSUMED CARE AROUND 0700, PT A&0 X 4, NO ACUTE DISTRESS DURING SHIFT. VSS, O2 ON 7L VIA NC. PT DENIES ANY PAIN OR DISCOMFORT. MEDS GIVEN PER ORDERS, TOLERATED WELL. BG ACHS, SS WITH MEALS AND PRN. DIALYSIS T//SAT, L ARM FISULA IN PLACE. CONTINENT OF BM, LAST ON 10/25/19, NAKES NO URINE. PT D/C TODAY WITH [facility]. D/C INSTRUCTIONS GIVEN AND PT VOICED UNDERSTANDING, EDUCATION COMPLETE. PT TRANSPORTED BY STAFF IN WHEELCHAIR TO MEDICAL MALL WHERE HE WILL DRIVE HIMSELF HOME.
--- NOTE | 2019-10-31 12:34 | HC ---
[facility] [place] [address] CONSULTATION Name: JAQUELIN MAJORNO Room #: 506-1 [facility] IN M.R.#: [id number] Admission: 10/19/19 Attend Phys: Blaine Núñez MD Discharge: 10/27/19 Date of : 64 Report #: [id number] THIS REPORT FOR: cc: Parrish Major MD, Timothy W. MD Deutch,Jeet Jacinto. PhD ~ CC: Blaine Major DATE OF SERVICE: 10/25/2019 NEUROBEHAVIORAL STATUS EXAMINATION ATTENDING PHYSICIAN: Blaine Núñez M.D. MACHINE PLASTER MIXER: Jeet Santoro, PhD CLINICAL PRESENTATION: The patient is a 59-year-old male admitted to [facility] on 10/10/2019 with weakness and multiple falls. He had 3 falls at the time of his initial admission. He carries a premorbid diagnosis of dialysis and requiring 5 liters of oxygen. Problems with balance and frequent falls along with areas described. PAST MEDICAL HISTORY: Reported to include end-stage renal disease, on hemodialysis, chronic hypertension, peripheral neuropathy, congestive heart failure, pulmonary hypertension, morbid obesity. The patient was on the rehab unit in 2019 with critical illness myopathy. His assessment on admission to the rehab unit included gait instability with multiple falls, medical complexity with generalized debility, chronic hypertension, end-stage renal disease, on hemodialysis, congestive heart failure, recent history of diarrhea, cor pulmonale, history of gout, paroxysmal atrial fibrillation, sleep apnea. A complete description of his medical condition and history can be found in his medical record. Neuropsychological consultation was requested to provide assistance in the assessment of cognitive and emotional status and to provide recommendations and services. Prior to this most recent admission, he reports living independently in his own home. He was driving. He is a single male and never . He is a high school graduate with 2-year stock associate degree. 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 The patient has 2 sisters and one brother. One brother is . TECHNIQUES UTILIZED: Clinical interview, review of medical records, staff consultation and behavioral observation, mini mental status exam 2 standard version, clock drawing and verbal fluency assessment. [facility] [address] [address] CONSULTATION Name: MARISELA MAJOR Room #: 506-1 [facility] IN ..#: [id number] Admission: 10/19/19 Attend Phys: Blaine Núñez MD Discharge: 10/27/19 Date of : 64 Report #: [id number] EXAMINATION FINDINGS: The patient was alert and cooperative with the assessment. He accurately described events surrounding his admission. There is no evidence of aphasia. His thoughts are logical and goal oriented. There is no evidence of thought disorder. He does not report symptoms of anxiety, depression or problems with memory or word finding. However, he has indicated weekly use of cannabis. His performance on the MMSE 2 brief version is within normal limits with a raw score of 15 of 16. He was 2 to 3 for immediate recall of 3 items after a brief time delay and distraction. He was alert and oriented to time and place. Performance on the MMSE 2 standard version was 27 of 30, which is within normal limits. He was 3/5 for serial 7's. Letter fluency was extremely low with a raw score of 12, T score of 26 and percentile rank of 1. Category fluency was within normal limits with a T score of 37 and percentile rank of 10. Overall, total fluency was extremely low with a T score of 28, percentile rank of 1. The patient is presenting with decreased attention and concentration. Lower letter fluency suggests deficits in sustained concentration in active organization which suggests variability in executive functioning. DIAGNOSTIC IMPRESSION: Mild neurocognitive disorder, unspecified, without behavior disorder. RECOMMENDATIONS: The patient may need assistance with higher level planning and problem solving. He indicates having been living independently prior to this most recent hospitalization. However, a driving evaluation may be of benefit to clarify continued safety issues. Assistance in the management of medication will likely be of benefit to ensure safety. The patient may benefit from neuropsych testing to clarify cognitive status. However, he is alert and oriented and showing much improved cognitive stability in comparison to his functioning during the initial hospitalization. Thank you very much for allowing me to provide the consultation on this patient. <ELECTRONICALLY SIGNED> By: Jeet Santoro, PhD 10/31/19 1234 1513 1824 Jeet Santoro, PhD /nt
--- NOTE | 2019-11-06 13:47 | PLAN ---
[facility] [place] [address] REHAB UNIT PLAN OF CARE Name: MARISELA QUINONEZ Room #: 506-1 [facility] IN M.R.#: [id number] Admission: 10/19/19 Attend Phys: Blaine Núñez MD Discharge: 10/27/19 Date of : 64 Report #: [id number] THIS REPORT FOR: //name// CC: Blaine Núñez Parrish Pedrito DATE OF SERVICE: 10/21/2019 PROGRESS NOTE AND OVERALL PLAN OF CARE SUBJECTIVE: The patient is seen back today in followup. He is in no distress. Temperature 36.5, pulse 73, respirations 18, blood pressure 89/52. He is in no distress. No calf swelling. Transfers are contact guard. Ambulate 150 feet front-wheeled walker, contact guard assistance. He started to work on stairs. Lower body dressing is min assist. ASSESSMENT: 1. Gait instability with multiple falls. 2. Medical complexity with generalized debilitation. 3. Chronic hypotension. 4. End-stage renal disease, on hemodialysis. 5. Recent episode of diarrhea prior to his acute admission. 6. Congestive heart failure. 7. Cor pulmonale. 8. History of gout. 9. Paroxysmal atrial fibrillation. 10. Sleep apnea. PLAN: The overall plan of care is based on the preadmission screen, post-admission physician evaluation and information garnered from therapy assessments. 1. Estimated length of stay is planning through next 10/27/2019. 2. Medical prognosis is reasonably good. 3. Anticipated interventions includes the interdisciplinary acute inpatient rehabilitation program. 4. Anticipated functional outcomes would be for the patient to improve his overall independence of these modified independent at least at the walker level for mobility and ADLs so that he can return back to the home setting. 5. Discharge destination would be back to his house alone. 6. Expected therapy by discipline includes PT and OT 1 and 1-1/2 hours per day each five days a week throughout the duration of the acute inpatient rehabilitation stay. <ELECTRONICALLY SIGNED> By: Blaine Núñez MD 11/06/19 1347 0821 1353 Blaine Núñez MD /nt
--- NOTE | 2019-11-06 13:47 | H ---
[facility] [address] HISTORY AND PHYSICAL Name: CRISTIANOMARISELA Room #: 506-1 [facility] IN M.R.#: [id number] Admission: 10/19/19 Attend Phys: Blaine Núñez MD Discharge: 10/27/19 Date of : 64 Report #: [id number] THIS REPORT FOR: cc: Parrish Major MD,Blaine Brown MD, MD ~ CC: Blaine Major DATE OF SERVICE: 10/19/2019 HISTORY AND PHYSICAL AND POST-ADMISSION PHYSICIAN EVALUATION HISTORY OF PRESENT ILLNESS: The patient is a 59-year-old male who was originally admitted to [facility] on 10/10/2019 with weakness and multiple falls. He had had 3 falls within the time of his initial admission. He is a premorbid dialysis patient driving himself back and forth to dialysis. He also is on chronic oxygen 5 liters. He was having problems with his balance being off. He had some recent diarrhea. He was diagnosed with hypotension and weakness. He was given IV fluids. His midodrine dose was increased. He was monitored closely by Nephrology and Internal Medicine. He was felt to be stabilized and has been admitted for acute in-hospital inpatient rehabilitation. He has been noted to have a significant decline in his functional independence. PAST MEDICAL HISTORY: Prior medical history includes end-stage renal disease, on hemodialysis; chronic hypotension, peripheral neuropathy, congestive heart failure, pulmonary hypertension, and morbid obesity. He had a prior acute rehab stay back in early 2019 with critical illness myopathy and did well at that time. MEDICATIONS: Please see the full medication listing. SOCIAL HISTORY: Lives in a house alone. Premorbid walker ambulator. No steps in. He was driving himself back and forth to dialysis. He does have involved friends in the area. REVIEW OF SYSTEMS: No complaints of chest pain, shortness of breath or abdominal discomfort. ALLERGIES: No known drug allergies. PHYSICAL EXAMINATION: GENERAL: Pleasant, obese 59-year-old -[place]er male in no obvious distress. VITAL SIGNS: Last recorded temperature 36.7, pulse 64, respirations 18, and blood pressure 93/51. The patient was seen later yesterday. He was alert, [facility] [address] [place] [address] HISTORY AND PHYSICAL Name: MARISELA MAJOR Room #: 506-1 [facility] IN ..#: [id number] Admission: 10/19/19 Attend Phys: Blaine Núñez MD Discharge: 10/27/19 Date of : 64 Report #: [id number]. HEENT: Appeared to be benign. Facies were symmetric. He is on nasal prong O2. CHEST: Some decreased in breath sounds overall. CARDIOVASCULAR: Sounded regular rate and rhythm. ABDOMEN: Bowel sounds positive, nontender. GENITOURINARY AND RECTAL: Deferred. EXTREMITIES: Functional range of motion of both upper extremities. Strength is grade 4-/5 to 4/5. DTRs are trace to 1. Lower extremities, no focal calf swelling, functional range of motion with strength grade 4/5. DTRs are trace to 1. He has been transferring with min assist and ambulating a short distance min assist with a front-wheeled walker. ASSESSMENT: A 59-year-old -[place]er male with the following problem list: 1. Gait instability with multiple falls. 2. Medical complexity with generalized debilitation. 3. Chronic hypotension. 4. End-stage renal disease, on hemodialysis. 5. Recent episode of diarrhea prior to his acute admission. 6. Congestive heart failure. 7. Cor pulmonale. 8. History of gout. 9. Paroxysmal atrial fibrillation. 10. Sleep apnea. PLAN: The patient has been admitted for acute in-hospital inpatient rehabilitation. Date of service of this history and physical is 10/19/2019. He was admitted to the rehab [place] to maximize his functional independence to try to return back to the home setting. From a post-admission physician evaluation perspective, there are no relevant changes since the preadmission screening. Please see the above review of prior and current medical and functional conditions and comorbidities. Please see the patient's previous and current functional status. As far as risk of complications, he has multiple medical comorbidities as noted above. Initial plan of care involves the interdisciplinary acute inpatient rehabilitation program. Measurable functional goals would be for the patient to become modified independent with transfers, mobility, ADLs, so that he can return to the home setting. Prognosis is reasonably good with estimated length of stay probably at least 7-10 days. Potential barriers would include his multiple medical comorbidities and decreased functional status. The patient meets diagnostic criteria for an acute in-hospital inpatient rehabilitation stay. He meets the medical necessity criteria and we will have [address] [address] HISTORY AND PHYSICAL Name: JAQUELIN MAJORNO Room #: 506-1 [facility] IN M.R.#: [id number] Admission: 10/19/19 Attend Phys: Blaine Núñez MD Discharge: 10/27/19 Date of : 64 Report #: [id number] the cardiology consultant physicians continue to follow. He does have the tolerance for therapies and has appropriate discharge goals back to the home setting. <ELECTRONICALLY SIGNED> By: Blaine Núñez MD 11/06/19 1347 1053 1148 Blaine Núñez MD /nt
== END 2019-10-27 11:00 | disposition home health service (06) | DRG 91 ==
LOC: ENTRNSPT 10-27 10:19
PROVIDERS: Nurse Practitioner; ADMIT Physical Medicine & Rehabilitation; ATTEND Physical Medicine & Rehabilitation
DX: R26.9 Unspecified abnormalities of gait and mobility (principal); N18.6 End stage renal disease; Z68.41 Body mass index [BMI] 40.0-44.9, adult; R53.81 Other malaise; I50.9 Heart failure, unspecified; I48.0 Paroxysmal atrial fibrillation; I95.89 Other hypotension; Z99.2 Dependence on renal dialysis; I27.29 Other secondary pulmonary hypertension; E66.01 Morbid (severe) obesity due to excess calories; E11.22 Type 2 diabetes mellitus with diabetic chronic kidney disease; G47.33 Obstructive sleep apnea (adult) (pediatric)
CPT/HCPCS: 10112; 32100

== ENCOUNTER 2019-11-01 13:59 | Emergency (ER) | payer OTHER ==
[~2019-11-01] VITALS: Ht 177.8 cm; Wt 137.0 kg
[~2019-11-01 13:59] MED LIST changes: +NOVOLOG100 UNIT/1 SUBQ; +TRADJENTA5 MG PO; +VITAMIN D21250 MC1 PO
[2019-11-01] MEDS ORDERED: GLIPIZIDE 10 MG10 MG PO (14:11)
[2019-11-01 14:43] LABS: ABSOLUTE NEUTROPHILS 6.9 thou/uL (1.4-8.2); BASOPHILS 0.5 % (0.0-2.0); EOSINOPHILS 1.1 % (0.0-3.0); HEMATOCRIT 31.7 % (42.0-52.0); HEMOGLOBIN 9.8 gm/dL (14.0-18.0); LYMPHOCYTES 20.1 % (24.0-44.0); MCH 28.1 pg (26.0-34.0); MCHC 30.8 g/dL (28.0-37.0); MCV 91.3 fL (80.0-100.0); MONOCYTES 6.5 % (1.0-8.0); PLATELET COUNT 295 thou/uL (150-400); POLYS 71.8 % (36.0-66.0); RBC 3.47 mil/uL (4.50-6.00); RDW 20.5 % (10.5-14.5); WBC 9.6 thou/uL (4.0-11.0)
[2019-11-01 14:47] LABS: ANION GAP 9 mmol/L (7-16); BUN 43 mg/dL (7-18); CALCIUM 8.3 mg/dL (8.5-10.1); CHLORIDE 92 mmol/L (98-107); CO2 28 mmol/L (21-32); CREATININE 8.7 mg/dL (0.7-1.3); GLUCOSE 272 mg/dL (74-106); POTASSIUM 4.4 mmol/L (3.5-5.1); SODIUM 129 mmol/L (136-145)
[2019-11-01 14:56] LABS: SGOT 22 U/L (15-37); SGPT 15 U/L (30-65); TOTAL BILIRUBIN 0.3 mg/dL (0.2-1.0); TOTAL PROTEIN 8.5 g/dL (6.4-8.2); TROPONIN-I <0.06 ng/mL (<0.06)
[2019-11-01 15:05] LABS: ANISOCYTOSIS 2+; LARGE PLATELETS FEW; PLATELET ESTIMATE NORMAL
[2019-11-01 15:06] LABS: MACROCYTES SLIGHT; MICROCYTES SLIGHT; POLYCHROMASIA SLIGHT
[2019-11-01 17:23] VITALS: BP 91/42
--- NOTE | 2019-11-03 07:45 | EKG ---
[facility] [place] [address] ELECTROCARDIOGRAM REPORT Name: MAJORMARISELA Room #: DEP [facility]#: [id number] Admission: 11/01/19 Attend Phys: Discharge: 11/01/19 Date of : 64 Report #: [id number] THIS REPORT FOR: cc: Parrish Major MD, Timothy W. MD Lundgren,David Dietz MD [facility] ~ THIS REPORT FOR: //name// [facility] ED Test Date: 2019-11-01 Test Time: 14:17:26 Pat Name: MARISELA MAJOR Department: Room: Gender: Shoe Turner: [facility] : 1960 Requested By: Maciej Orozco Order Number: [id number] MD: David Godoy Measurements Intervals [place] Rate: 65 P: 59 [place]: 208 QRS: 74 QRSD: 112 T: 39 QT: 512 QTc: 533 Interpretive Statements Sinus rhythm Atrial premature complex Borderline prolonged [place] interval Nonspecific ST segment abnormality Prolonged QT interval Baseline wander in lead(s) V3 Compared to ECG 10/10/2019 10:32:21 Atrial premature complex(es) now present Electronically Signed On 11-03-2019 7:44:49 CDT by David Godoy [email or web address] <ELECTRONICALLY SIGNED> By: David Godoy MD, [facility] 11/03/19 0744 1417 1417 David Godoy MD, FAC /EPI
== END 2019-11-01 17:09 | disposition home or self-care (01) ==
LOC: ER 13:59
PROVIDERS: Emergency Medicine
DX: R55 Syncope and collapse (principal); I25.10 Atherosclerotic heart disease of native coronary artery without angina pectoris; E03.9 Hypothyroidism, unspecified; I13.0 Hypertensive heart and chronic kidney disease with heart failure and stage 1 through stage 4 chronic kidney disease, or unspecified chronic kidney disease; E11.22 Type 2 diabetes mellitus with diabetic chronic kidney disease; N18.4 Chronic kidney disease, stage 4 (severe); I50.9 Heart failure, unspecified; Z99.2 Dependence on renal dialysis; Z79.4 Long term (current) use of insulin; Z79.899 Other long term (current) drug therapy

== ENCOUNTER 2019-11-06 17:47 | Inpatient (IN) | payer OTHER ==
[~2019-11-06] VITALS: Ht 177.8 cm; Wt 140.4 kg
[2019-11-06 18:19] VITALS: BP 73/29
[2019-11-06 18:51] LABS: BASOPHILS 1.1 % (0.0-2.0); EOSINOPHILS 1.3 % (0.0-3.0); HEMATOCRIT 32.8 % (42.0-52.0); HEMOGLOBIN 9.8 gm/dL (14.0-18.0); LYMPHOCYTES 16.4 % (24.0-44.0); MCH 27.8 pg (26.0-34.0); MCHC 29.8 g/dL (28.0-37.0); MCV 93.4 fL (80.0-100.0); MONOCYTES 6.6 % (1.0-8.0); PLATELET COUNT 247 thou/uL (150-400); POLYS 74.6 % (36.0-66.0); RBC 3.51 mil/uL (4.50-6.00); RDW 21.8 % (10.5-14.5)
[2019-11-06 18:54] LABS: ANION GAP 2 mmol/L (7-16); BUN 17 mg/dL (7-18); CALCIUM 8.5 mg/dL (8.5-10.1); CHLORIDE 93 mmol/L (98-107); CO2 34 mmol/L (21-32); CREATININE 4.5 mg/dL (0.7-1.3); GLUCOSE 203 mg/dL (74-106); SODIUM 129 mmol/L (136-145)
[2019-11-06 18:55] LABS: BE(vivo) 4.2 mmol/L (-2 to +3); HCO3 32.5 mmol/L (22.0-26.0); sO2 43.1 % (92.0-98.0)
[2019-11-06 18:57] LABS: PCO2 71.3 mmHg (35.0-45.0); pH 7.277 (7.360-7.450)
[2019-11-06 19:04] LABS: ALBUMIN 2.8 g/dL (3.4-5.0); SGOT 39 U/L (15-37); SGPT 18 U/L (30-65); TOTAL BILIRUBIN 0.4 mg/dL (0.2-1.0); TOTAL PROTEIN 8.2 g/dL (6.4-8.2); TROPONIN-I <0.06 ng/mL (<0.06)
[2019-11-06 19:06] LABS: DIRECT BILIRUBIN < 0.1 mg/dL (<0.1-0.2)
--- NOTE | 2019-11-06 19:45 | NUR ---
RT NOTIFIED OF NEED FOR AN ARTERIAL BLOOD GAS. THE SAMPLE THAT WAS COLLECTED PREVIOUSLY VENOUS
[2019-11-06 20:01] LABS: BE(vivo) -8.9 mmol/L (-2 to +3); HCO3 17.2 mmol/L (22.0-26.0); PCO2 38.4 mmHg (35.0-45.0); PO2 39.6 mmHg (80.0-100.0); sO2 67.6 % (92.0-98.0)
--- NOTE | 2019-11-06 22:29 | NUR ---
giovanna lomeli police inspector notified, no new orders, pt asymptomatic, no new orders, monitor for now.
[2019-11-07] VITALS (57 sets, daily range): BP systolic 63–135; BP diastolic 18–110
--- NOTE | 2019-11-07 00:45 | NUR ---
TRIED TO CALL REPORT; NURSE UNAVAILABLE TO TAKE REPORT AT THIS TIME.
--- NOTE | 2019-11-07 07:11 | NUR ---
ASSUME CARE 1900. PT STABLE. HYPOTENSION NOTED WITH SBP BETWEEN 60s AND 90s. LEVOPHED TO TITRATE DEPENDING ON BP. PT ON 10LNC SATS 98-99% AND BREATHING AT RATE 17. ON CPAP AT 15L O2 SATS 98%. RESTING WELL WITH NO DISTRESS NOTED THROUGH THE NIGHT. SOA WITH EXERTION. PLAN IS TO CONTINUE TO MONITOR BP AND RESP FUNCTION. WILL CONITNUE TO MONITOR AND FOLLOW WIHT POC
--- NOTE | 2019-11-07 08:35 | NUR ---
ORDERS RECEIVED FOR PT EVAL AND TREAT. Pt CURRENTLY IN ICU WITH SYSTOLIC BPs BETWEEN 60s AND 90s AND ON CPAP. D/T TRANSFER TO ICU, WILL NEED NEW PT CONSULT PRIOR TO INTIATING PT INTERVENTIONS.
--- NOTE | 2019-11-07 09:47 | EKG ---
[facility] [place] [address] ELECTROCARDIOGRAM REPORT Name: JAQUELIN MAJORNO Room #: 236-P ADM IN M.R.#: [id number] Admission: 11/06/19 Attend Phys: Ariel Antony MD Discharge: Date of : 64 Report #: [id number] THIS REPORT FOR: cc: Parrish Major MD, Timothy W. MD Lundgren,David Dietz MD [facility] ~ THIS REPORT FOR: //name// [facility] ED Test Date: 2019-11-06 Test Time: 18:24:13 Pat Name: MARISELA MAJOR Department: Room: [facility] Gender: M Rn Private Duty: angelo : 1960 Requested By: Maciej Orozco Order Number: [id number] MD: David Godoy Measurements Intervals [place] Rate: 82 P: 53 [place]: 207 QRS: 86 QRSD: 101 T: 78 QT: 452 QTc: 528 Interpretive Statements Sinus rhythm Atrial premature complex Borderline prolonged [place] interval Prolonged QT interval Compared to ECG 11/01/2019 14:17:26 No significant change was found Electronically Signed On 11-07-2019 9:46:44 CDT by David Godoy [email or web address] <ELECTRONICALLY SIGNED> By: David Godoy MD, [facility] 11/07/19 0946 1824 1824 David Godoy MD, [facility] /EPI
--- NOTE | 2019-11-07 19:02 | NUR ---
ASSUMED CARE OF PATIENT AT 0700. ASSESSMENTS COMPLETED. PATIENT USING NC INTERMITTENTLY WITH CPAP AND TOLERATING WELL. SR ON MONITOR WITH VTAC X [address] MITCHELL NOTIFIED. LEVOPHED TITRATING. ANEURIC. ACCUCHECK AC&HS. COVID TEST NEGATIVE, ISOLATION REMOVED PER DR. CARCAMO. PATIENT TO CONTINUE WITH POC.
--- NOTE | 2019-11-07 20:55 | NUR ---
CONSULTED TO PLACE A CENTRAL LINE FOR A PATIENT NEEDING ACCESS FOR LEVOPHED. CONSENT OBTAIN AFTER SPEAKING TO PATIENT ABOUT RISKS AND BENIFITS. THE PATIENT WAS VERY APPREHENSIVE ABOUT LINE PLACEMENT BUT DID CONSENT. A #6F CENTRAL LINE ATTEMPTED X2 ON THE RIGHT JUGULAR. UNABLE TO ADVANCE THE LINE ON BOTH ATTEMPTS. THIS PATIENT HAS HAD MULTIPLE LINES AND SCARS AROUND NECK AREA. THE FISTULA IS ON THE LEFT AND THE PATIENT REFUSED A LEFT SIDED ATTEMPT DUE TO THE FISTULA. PROCEDURE ABORTED AND A 2ND PERIPHERAL IV PLACED. RECRUITMENT SPECIALIST UPDATED
--- NOTE | 2019-11-07 21:21 | NUR ---
Assumed care of patient at 1900. Pt does not have central line. Called Dr Hinds for orders of a central line. Orders received, however IV nurse was uncessful in placing one. Patient still needs a central line.
[2019-11-08] VITALS (59 sets, daily range): BP systolic 66–116; BP diastolic 22–72
--- NOTE | 2019-11-08 07:57 | NUR ---
INTERVENTIONS AND ASSESSMENT DOCUMENTED. PT IS STABLE. ON LEVOPHED BLOOD RESPONDING WELL TO MEDICATION. PT WANTED TO USE COMMODE INSTEAD OF BED SHEIKH. WAS ABLE TO TOLERATE SITTING ON COMMODE. PT IS MOVING TOWARDS GOAL.
[2019-11-08 13:21] LABS: HEMOGLOBIN 10.1 gm/dL (14.0-18.0); MCH 28.2 pg (26.0-34.0); MCHC 29.6 g/dL (28.0-37.0); MCV 95.1 fL (80.0-100.0); RBC 3.57 mil/uL (4.50-6.00); RDW 22.8 % (10.5-14.5); WBC 6.4 thou/uL (4.0-11.0)
[2019-11-08 13:29] LABS: ALBUMIN 2.8 g/dL (3.4-5.0); CALCIUM 7.8 mg/dL (8.5-10.1); PHOSPHORUS 5.7 mg/dL (2.5-4.9); POTASSIUM 3.8 mmol/L (3.5-5.1)
[2019-11-08 13:38] LABS: CREATININE 8.2 mg/dL (0.7-1.3)
--- NOTE | 2019-11-08 17:54 | NUR ---
ASSUMED CARE @ 0700 11/08/19, PT ASSESSMENTS AND VSS COMPLETE PER ICU PROTOCOL. LEVOPHED @ 15 @ START OF SHIFT, SBP OK IN 80'S AND MAP 55-60, PER DR GUZMAN, LEVO DOWN TO 2, WILL CONT TO TITRATE OFF. DR MITCHELL HERE TO ROUND, NO ORDERS RECIEVED. WILL CONTINUE MONITOR
[2019-11-09] VITALS (46 sets, daily range): BP systolic 50–96; BP diastolic 16–60
--- NOTE | 2019-11-09 04:06 | NUR ---
PT WAS ON QUAD STRENGHT LEVO AT 2MCG WITH MAP BTW 55-60 UPON ASUMPTION OF CARE. LEVO TURNED DOWN TO 1 MCG BUT PT'S MAP WAS BARELY STAYING ON AT 55-60. NEW BAG OF DOUBLE STRENGHT LEVO RECIEVED AND STARTED AT 2. AND TO BE TITRATED UP TO 3MCG FOR PT'S MAP TO REMAIN AT LEAST 55. PT'S 02 TITRATED DOWN TO 11 AT THIS 0400AM. SATS 97. PT IS STABLE, HE STATED HE REALLY WANTS TO GET A HANDLE ON HIS BLOOD PRESSURE SO HE CAN TRANFER OUT TO THE FLOOR. WILL CONTINUE TO CLOSELY MONITOR.
--- NOTE | 2019-11-09 07:37 | HC ---
[facility] [place] [address] CONSULTATION Name: JAQUELIN MAJORNO Room #: 242-P ADM IN M.R.#: [id number] Admission: 11/06/19 Attend Phys: Ariel Antony MD Discharge: Date of : 64 Report #: [id number] THIS REPORT FOR: cc: Parrish Major MD, Timothy W. MD Neufeld, Timothy K. MD ~ CC: Ariel Major DATE OF SERVICE: 11/07/2019 NEPHROLOGY CONSULTATION REASON FOR CONSULTATION: End-stage renal disease requiring chronic hemodialysis. HISTORY OF PRESENT ILLNESS: This is a 59-year-old male well known to myself and our group. He has many hospitalizations here at [facility]. The patient presented to the Emergency Room yesterday afternoon. He complained of feeling weak. He was hypotensive, which is a chronic problem for him. Pressures have ranged in the 70-80 systolic range. He is mildly hypoxemic on presentation. The patient has longstanding severe diabetes mellitus, end-stage renal disease, chronic obstructive sleep apnea with cor pulmonale. He has severe orthostatic hypotension, which is chronic. He was just in the hospital 10 days ago, that was after two and a half weeks' stay including his stay on the rehab floor. It sounds like he basically had exactly the same symptoms upon going home after that two and a half weeks' stay as he had before, that is the reason he represented at this time. For his hypotension, he is chronically on midodrine. It sounds like he has been taking 10 mg t.i.d., but it sounds like he has been bunching his doses potentially not in the correct manner. He has not been able to wear a CPAP at night. He says the oxygen supply is wrong and hence he has been struggling with home care, which is also a recurring theme. Today, he is complaining of being weak. He has his chronic dyspnea, he denies cough or fever. Other caution he was tested for COVID-19 and that result is pending. He has not had fever or change in respiratory symptoms. From a dialysis standpoint, he has end-stage renal disease. He has diabetic nephropathy. This has only worsened by his chronic cor pulmonale and right heart problems. He has been on dialysis since May 2018. He dialyzed on the day of admission at [facility]. He states he came off of his target weight and did well with that. He makes minimal urine. PAST MEDICAL HISTORY: Longstanding diabetes mellitus. He has had some diabetic foot wounds. He developed ____ severe chronic diabetic nephropathy with massive proteinuria. He has obstructive sleep apnea and pulmonary hypertension and cor pulmonale findings. He has been chronically on oxygen as well as the CPAP, [facility] [address] [place] [address] CONSULTATION Name: MARISELA MAJOR Room #: 242-P [facility] IN M.R.#: [id number] Admission: 11/06/19 Attend Phys: Ariel Antony MD Discharge: Date of : 64 Report #: [id number] although use of that compliance has been diminished. He has had some previous lower extremity wounds that have been treated during hospitalizations. He is severely deconditioned and just at the time on the rehabilitation floor. He develops a very high level of anxiety when he starts feeling uncomfortable and is concerned because he lives alone at home and is sometimes not able to take care of his needs. MEDICATIONS: On admission include midodrine 10 mg 3 times daily, although he has bunching his doses particularly prior to dialysis and then taken some on the evening, which does not make much physiologic sense. He is also on levothyroxine 0.2 mg daily, some insulin, vitamin D. ALLERGIES: No known medical allergies. FAMILY HISTORY: Noncontributory. SOCIAL HISTORY: The patient is single, lives alone, which is a big part of his problem as he does not have much help at home. He is chronically disabled. REVIEW OF SYSTEMS: States dialysis went fine yesterday, has not had much in the way of lower extremity edema. He is lightheaded or dizzy whenever he gets up and this is an ongoing problem. Denies nausea or vomiting. He is unaware of fevers or chills. No change in cough. PHYSICAL EXAMINATION: GENERAL: Chronically ill, obese, gentleman, who is awake and responsive. He looks his normal self to me. VITAL SIGNS: Blood pressure 90/46, heart rate 81 on 25 mcg of Levophed at this time. HEENT: Pupils are equal and reactive. Sclerae nonicteric. Oral mucosa is moist. NECK: Veins are not distended. CHEST: Shows shallow respirations bilaterally. CARDIOVASCULAR: Heart has occasional prematurity. ABDOMEN: Obese, has active bowel sounds. EXTREMITIES: Show really not much peripheral edema. This looks significantly good for him. He has a left arm dialysis access in place, which is functional. IMAGING STUDIES: Chest x-ray shows underinflated lung magallon, but no infiltrates. LABORATORY DATA: Sodium 129, potassium 4.0, chloride 93, bicarbonate 34, BUN 17, creatinine 4.5 (that was done within a few hours post-dialysis). AST 39, ALT 18, total bilirubin 0.4, calcium 8.5, total protein 8.2, albumin 2.8. White count 8.0, hemoglobin 9.8, hematocrit 32.8, platelets 247,000. [facility] [place] [place] [address] CONSULTATION Name: MARISELA MAJOR Room #: 242-P ADM IN M.R.#: [id number] Admission: 11/06/19 Attend Phys: Ariel Antony MD Discharge: Date of : 64 Report #: [id number] ASSESSMENT: 1. End-stage renal disease. He dialyzed 3 days this week. Volume looks fine on exam. Labs are okay. If we follow his routine pattern, he will need his next dialysis on 11/09/2019. We will check on him again tomorrow to see if that needs earlier, but otherwise, we will plan on doing it on that day. 2. Chronic respiratory failure with longstanding sleep apnea, pulmonary hypertension, cor pulmonale. He is oxygenating adequately at this time. 3. Chronic hypotension with an orthostatic component due to autonomic neuropathy and also has severe compromise related to his cor pulmonale. He has been on midodrine, but I am not sure it has been the appropriate dosing. In the past, he has been on Levophed here in the hospital and it was never provided a long-term benefit, so we will get him off of that as we are able. Again, back on 3 times daily, midodrine and work on getting him on a regular dosing basis for that concluding first thing in the morning and midday and then late afternoon and avoid any pre-bedtime doses, which is not physiologic. 4. Longstanding sleep apnea. He has been without his continuous positive airway pressure at home and certainly that is very important for this morbidly obese patient. 5. Longstanding diabetes mellitus with peripheral neuropathy and progressive diabetic nephropathy, eventually leading to end-stage renal disease. 6. Chronic anemia of end-stage renal disease. 7. The patient obviously has a difficult situation at home because he is trying to care for himself. It is my impression that he gets anxious when he begins having any problems and then becomes less capable of caring for himself going forward. I think it is worth consideration to see if we can get him into some sort of a care center for additional care to provide backup for him. Again, this has been a recurring problem that we have seen developing over a long period of time. <ELECTRONICALLY SIGNED> By: Parrish Parkinson MD 11/09/19 [id number] Parrish Parkinson MD /nt
--- NOTE | 2019-11-09 15:52 | NUR ---
Patient admits with hypotention. Patient in ICU on 10 liters of oxygen. Patient with recent dc from [facility] 10/26 with [facility] care. He is still current with HH. Patient reports his concentrator from [facility] not working properly. They switched out concentrators but his concentrator goes to 5 liters. Patient reports prev he rec 10 liters concentrator but was maintaing lower need of oxyen. He has rec the 5 liter concentrator for approx 8 months. Patient reports he believes he is desating at night and needs higher concentrator. He has a trilogy at home. He dializes MWF at [facility]. He drives himself. he lives alone and recently using walker for ambulation. He reports he used to use only after dialysis but now needing more often. Patient reports goal to dc from hospital by . Patient reports he wants to transfer to floor and work with therapy. He reports prev here so long he was weak. He wants to be in a room he can ambulate to maintain strength to return home. He has important weekend plans. Sp with [facility] who is aware of admission. SP with [facility] who is inquiring into what is needed to obtain higher concentrator. [email or web address] following.
--- NOTE | 2019-11-09 16:32 | NUR ---
FAXED CLINICAL UPDATE TO [facility] RECEIVED CONFIRMATION. DP TO FOLLOW.
--- NOTE | 2019-11-09 19:21 | NUR ---
ASSUMED CARE OF PT AT 0700, PT IS A/O TIMES 4 AND A GCS OF 15. HE HAS DENIED PAIN OR DISCOMFORT. PT WITH LOW B/P AND HE STATES THAT IS USUAL FOR HIM. LEVO STOPPED POST DIALYSIS AND PT HAS HAD STABLE BLOOD PRESSURE. PT IS ASYMPTOMATIC FOR HYPOTENSION. DR GAGE AND DR STEPHEN HOUGH WITH PT XFER OUT OF ICU. ORDERS RCVD FROM DR MITCHELL TO XFER PT OUT OF ICU. PT RESTING NOW WITH EYES CLOSED.
[2019-11-10] VITALS: BP 87/40
--- NOTE | 2019-11-10 01:21 | NUR ---
Received report and assumed patient care at 1900. Patient is AAOx4 and is on 10L HFNC. Patient is also hypotensive but is asymptomatic with transfer orders to CCU. Patient remained asymptomatic while here in the ICU and was transferred out at approximately 0100.
--- NOTE | 2019-11-10 01:36 | NUR ---
PATIENTS CARES WERE AASSUMED AT THE TRANSFER FROM ICU. PATIENT WAS ASSESSED AND MEDS WERE PASSED. PATIENT WAS MADE COMFORRTABLE WITH AN EXTRA PILLOW, WARM BLANKET AND THE ADJUSTMENT OF THE THERMOSTAT TO A COMFORTABLE TEMP FOR THIS PATIENT. NO MEDS WERE PASSED AFTER THE ASSESSMENT NONE DUE AT THIS TIME. HOURLY ROUNDS WERE / WILL BE MADE TO MAINTAIN SAFTEY. THE BED IS IN A LOW AND LOCKED POSITION.
[2019-11-10 05:31] VITALS: BP 68/39
[2019-11-10 07:58] VITALS: BP 90/49
[2019-11-10 11:33] VITALS: BP 93/46
--- NOTE | 2019-11-10 13:26 | NUR ---
Sat/Excercise completed patient with need for 10 liter concentrator. Faxed pertinent information to [facility] for review. Updated Dr Pan. Discussed with patient. He cont with oxygen at 10 Liters in room. No plan for dc today.
--- NOTE | 2019-11-10 14:55 | NUR ---
Nutrition: pt admit with respiratory distress. Seen due to BMI 42. Familiar with pt from prior admits. PMH: ESRD, CHF, DM, pulmonary HTN. Current weight 298#. Dry body weight 301#. Hemodialysis tues//sat. Appetite good eating 75-100% of meals on renal diet. BG 162-208. REC add Carb controlled to diet order. Low nutrition risk.
[2019-11-10 15:31] VITALS: BP 88/48
[2019-11-10 20:00] VITALS: BP 96/55
[2019-11-11 04:00] VITALS: BP 74/39
--- NOTE | 2019-11-11 10:22 | NUR ---
PT CURRENTLY ON DIALYSIS. PT POTENTIALLY LEAVING TODAY, TITRATED O2 DOWN TO 6L NC. PT 93%. PT STATES HE WILL HAS A PORTABLE O2 TANK HERE AND HIS VAN IS HERE SO HE PLANS TO DRIVE HIMSELF HOME AND MEET [facility] TO GET HIS NEW O2. HE WOULD LIKE TO GET OUT OF HERE ABOUT 230.
[2019-11-11 11:41] VITALS: BP 74/39
--- NOTE | 2019-11-11 12:19 | NUR ---
patient with need for home concentrator greater than 5L. Faxed script amd pertinent information to [facility]. They rec info and coordinated with patient for delivary. Plan home with HH care with [facility] once dc orders rec. Plan update dialysis clinic.
[2019-11-11] MEDS ORDERED: IPRAT-ALBUT 0.5-3 ML INH (12:47)
[2019-11-11] MEDS ORDERED: ACETAMINOPHEN325 M1 PO (12:47)
[2019-11-11] MEDS ORDERED: PULMICORT0.5 MG/21 INH (12:47)
[2019-11-11 13:30] VITALS: BP 74/39
--- NOTE | 2019-11-11 14:43 | NUR ---
discharge instructions reviewed with pt, piv and tele dc'd. discharge instructions, education materials and all belongings sent with pt
== END 2019-11-11 15:19 | disposition home health service (06) | DRG 291 ==
LOC: ER 17:47 → ICU 19:39 → 2N 19:39 → EROBS 19:39 → ICU 11-07 01:28 → 2N 11-10 01:09
PROVIDERS: Emergency Medicine; Internal Medicine Nephrology; ADMIT Hospitalist; ATTEND Hospitalist
DX: I13.2 Hypertensive heart and chronic kidney disease with heart failure and with stage 5 chronic kidney disease, or end stage renal disease (principal); I50.33 Acute on chronic diastolic (congestive) heart failure; N18.6 End stage renal disease; J96.21 Acute and chronic respiratory failure with hypoxia; J96.22 Acute and chronic respiratory failure with hypercapnia; N17.9 Acute kidney failure, unspecified; Z68.41 Body mass index [BMI] 40.0-44.9, adult; E66.01 Morbid (severe) obesity due to excess calories; Z20.828 Contact with and (suspected) exposure to other viral communicable diseases; I25.10 Atherosclerotic heart disease of native coronary artery without angina pectoris; E03.9 Hypothyroidism, unspecified; M10.9 Gout, unspecified; E11.22 Type 2 diabetes mellitus with diabetic chronic kidney disease; G47.33 Obstructive sleep apnea (adult) (pediatric); I27.20 Pulmonary hypertension, unspecified; Z60.2 Problems related to living alone; E11.43 Type 2 diabetes mellitus with diabetic autonomic (poly)neuropathy; I27.81 Cor pulmonale (chronic); I95.89 Other hypotension; D63.1 Anemia in chronic kidney disease; J44.9 Chronic obstructive pulmonary disease, unspecified; I50.810 Right heart failure, unspecified; R29.6 Repeated falls; R53.81 Other malaise; I70.0 Atherosclerosis of aorta; I08.1 Rheumatic disorders of both mitral and tricuspid valves; I48.0 Paroxysmal atrial fibrillation; K21.9 Gastro-esophageal reflux disease without esophagitis; Z84.1 Family history of disorders of kidney and ureter; Z99.2 Dependence on renal dialysis; Z93.0 Tracheostomy status; I25.2 Old myocardial infarction; Z83.3 Family history of diabetes mellitus; Z80.8 Family history of malignant neoplasm of other organs or systems; Z87.891 Personal history of nicotine dependence; Z99.81 Dependence on supplemental oxygen; Z79.899 Other long term (current) drug therapy
CPT/HCPCS: 10078; 10081; 32100

== ENCOUNTER 2019-12-03 19:07 | Inpatient (IN) | payer OTHER ==
[~2019-12-03] VITALS: Ht 177.8 cm; Wt 58.5 kg
--- NOTE | ~2019-12-03 | HC ---
[facility] [place] [address] CONSULTATION Name: JAQUELIN MAJORNO Room #: 204-P ADM IN M.R.#: [id number] Admission: 12/04/19 Attend Phys: Obie Hurley MD Discharge: Date of : 64 Report #: [id number] THIS REPORT FOR: cc: Parrish Major MD, Timothy W. MD Al-Absi,Shi Roy MD ~ CC: Obie Major DATE OF SERVICE: 12/04/2019 REASON FOR CONSULTATION: End-stage renal disease. REASON FOR PRESENTATION: Weakness. HISTORY OF PRESENT ILLNESS: This is a very well-known patient to me. This is one amongst the numerous admissions in the last couple of months for a 59-year-old with past medical history of end-stage renal disease, cardiomyopathy, severe pulmonary hypertension. He presented with similar complaints, reporting weakness, low blood pressure, repeated falls. He has spent some times in the rehabilitation floor few weeks ago. He has chronic hypotension and he seems to be at his baseline from the hypotension perspective. He is known to have severe pulmonary hypertension with a PA pressure in the 70s range. He is supposed to be utilizing BiPAP at home. The patient claims that dialysis people or dialysis unit was not able to get enough fluid from him. He is chronically maintained on midodrine. I was asked to assist with the management of his end-stage renal disease. PAST MEDICAL HISTORY: 1. End-stage renal disease. 2. Chronic hypotension. 3. Heart failure. 4. COPD. 5. Severe pulmonary hypertension. 6. AFib. PAST SURGICAL HISTORY: AV fistula, hernia repair. SOCIAL HISTORY: Denies drug or alcohol abuse. FAMILY HISTORY: Significant for end-stage renal disease and diabetes mellitus. REVIEW OF SYSTEMS: GENERAL: Significant for weakness and falls. CARDIOVASCULAR: No chest pain or palpitation. PULMONARY: No cough or hemoptysis; at baseline shortness of breath, maintained [facility] [address] [place] [address] CONSULTATION Name: MARISELA MAJOR Room #: 204-P ADM IN Julee.#: [id number] Admission: 12/04/19 Attend Phys: Obie Hurley MD Discharge: Date of : 64 Report #: [id number] on oxygen. GASTROINTESTINAL: No nausea or vomiting. GENITOURINARY: Makes no urine. MUSCULOSKELETAL: As per the history of present illness. MEDICATIONS: 1. Midodrine. 2. Levothyroxine. 3. Glipizide. 4. Folic acid. ALLERGIES: None. PHYSICAL EXAMINATION: VITAL SIGNS: Temperature is 36.9, pulse rate is 70, blood pressure is 85/54. HEAD AND NECK: No jugular venous distention. CHEST: Decreased air entry bilaterally, but no crackles or wheezes. CARDIOVASCULAR: No rub detected. ABDOMEN: Soft and nontender. EXTREMITIES: Lower extremities free of edema. LABORATORY DATA: Laboratory values revealed a white blood cell count of 9.9. Sodium is 132, potassium is 3.7, BUN of 28, creatinine of 7.2. ASSESSMENT, IMPRESSION AND PLAN: 1. End-stage renal disease. 2. Chronic hypotension. 3. Severe pulmonary hypertension. 4. Hemodialysis will be arranged for the patient today. 5. The patient is chronically hypotensive and this seems to be at his baseline. He recently spent about 3 weeks in the rehabilitation floor. To me, the patient seems to be at his baseline and I see no reason for him to stay after hemodialysis today. By: 0742 [id number] Shi Jya MD /nt
[~2019-12-03 19:07] MED LIST changes: +ACETAMINOPHEN325 M1 PO; +PULMICORT0.5 MG/21 INH
[2019-12-03 19:20] VITALS: BP 68/37
[2019-12-03 20:11] LABS: ANION GAP 8 mmol/L (7-16); BUN 28 mg/dL (7-18); CALCIUM 8.6 mg/dL (8.5-10.1); CHLORIDE 94 mmol/L (98-107); CO2 30 mmol/L (21-32); CREATININE 7.2 mg/dL (0.7-1.3); GLUCOSE 121 mg/dL (74-106); POTASSIUM 3.7 mmol/L (3.5-5.1); SODIUM 132 mmol/L (136-145)
[2019-12-03 20:18] LABS: HEMATOCRIT 32.3 % (42.0-52.0); HEMOGLOBIN 9.6 gm/dL (14.0-18.0); MCH 27.9 pg (26.0-34.0); MCHC 29.6 g/dL (28.0-37.0); MCV 94.2 fL (80.0-100.0); PLATELET COUNT 280 thou/uL (150-400); RBC 3.43 mil/uL (4.50-6.00); RDW 22.5 % (10.5-14.5); WBC 9.9 thou/uL (4.0-11.0)
[2019-12-03 20:20] LABS: ALBUMIN 3.3 g/dL (3.4-5.0); SGOT 25 U/L (15-37); SGPT 15 U/L (30-65); TOTAL BILIRUBIN 0.3 mg/dL (0.2-1.0); TOTAL PROTEIN 8.9 g/dL (6.4-8.2); TROPONIN-I <0.06 ng/mL (<0.06)
[2019-12-03 22:21] LABS: ANISOCYTOSIS 2+; LARGE PLATELETS FEW; NUCLEATED RBCS 2 /100WBC; PLATELET ESTIMATE NORMAL; POIKILOCYTOSIS 2+
[2019-12-04] VITALS (10 sets, daily range): BP systolic 73–1115; BP diastolic 42–94
--- NOTE | 2019-12-04 00:23 | NUR ---
PUT ON HOLD BY CCU NURSE.NOBODY ANSWERED AFTER THAT
--- NOTE | 2019-12-04 02:04 | NUR ---
PATIENT IS A NEW ADMISSION TO THE UNIT THIS SHIFT. HE ARRIVED VIA CART FROM THE ER AND WAS TRANSFERRED TO THE BED WITHOUT INCIDENT. PATIENT IS FULLY ALERT AND ORIENTED AND ABLE TO PARTICIPATE FULLY IN ADMISSION. BREATHING IS CHIEF CONCERN. PATIENT WAS BROUGHT TO UNIT ON TEN LITERS NASAL CANNULA. CPAP ORDERED AND PLACED BY RT. PATIENT ALSO GIVEN ALBUMIN FOR HYPOTENSION. NURSE TO FULLY COMPLETE ADMISSION AND INITIATE PLAN OF CARE.
--- NOTE | 2019-12-04 03:58 | NUR ---
HYPOTENSION NOTED DURING 0400 VITAL SIGNS. NURSE CONTACTED PIPE BOWL PAINT TRIMMER AND OBTAINED ORDERS FOR ALBUMIN. NURSE TO ASSESS BLOOD PRESSURE AFTER COMPLETION OF MEDICATION. PATIENT HAS BEEN ASSYMPTOMATIC DURING SITUATION.
--- NOTE | 2019-12-04 08:56 | EKG ---
[facility] [place] [address] ELECTROCARDIOGRAM REPORT Name: CRISTIANOMARISELA Room #: 204-P ADM IN M.R.#: [id number] Admission: 12/04/19 Attend Phys: Obie Hurley MD Discharge: Date of : 64 Report #: [id number] THIS REPORT FOR: cc: Parrish Major MD, Timothy W. MD Lundgren,David Dietz MD [facility] ~ THIS REPORT FOR: //name// [facility] ED Test Date: 2019-12-03 Test Time: 20:47:02 Pat Name: MARISELA MAJOR Department: Room: 204 Gender: M Battery Inspector: STOLED : 1960 Requested By: Arsenio Hernandez Order Number: [id number] : David Godoy Measurements Intervals [place] Rate: 79 P: 46 FL: 225 QRS: 77 QRSD: 100 T: 52 QT: 446 QTc: 512 Interpretive Statements Sinus rhythm Multiple ventricular premature complexes Prolonged FL interval Prolonged QT interval Compared to ECG 11/06/2019 18:24:13 Ventricular premature complex(es) now present Atrial premature complex(es) no longer present Electronically Signed On 12-04-2019 8:56:00 CDT by David Godoy [email or web address] <ELECTRONICALLY SIGNED> By: David Godoy MD, FAC 12/04/19 0856 46 46 David Godoy MD, FAC /EPI
--- NOTE | 2019-12-04 13:14 | NUR ---
patient admits with CHF/COPD. Patient resides in independent home alone. He dializes at [facility]. He drives himselt to [place]. He has [employer] for home oxygen, reports usu at 8 liters at home. He has a Trilogy at home but wants a BIPAP instead of Trilogy. He reports he wants to speak with Pulmon[facility] regarding this concern. Call to [facility] regarding ordering BIPAP over weekend. Patient on disability and has a walker at home if needed. He has rec HH in past [facility] and would like to use again in future.
--- NOTE | 2019-12-04 16:42 | NUR ---
FAXED REFERRAL TO [facility] SPOKE WITH [facility] IN INTAKE SHE CAN ACCEPT PT AT DISCHARGE. IF PT DISCHARGES OVER WEEKEND PLEASE FAX DC ORDERS/SUMMARY TO [phone] AND CALL [phone] NOTIFY OF DC.
[2019-12-05] VITALS (7 sets, daily range): BP systolic 65–141; BP diastolic 36–107
--- NOTE | 2019-12-05 03:57 | NUR ---
PATIENT ALERT AND ORIENTED X4. SITTING ON SIDE OF BED PERIODICALLY. PATIENT C/O NOT GETTING ENOUGH SLEEP. BS MONITORED PER ORDER TELE - AFIB MONITORED. PATIENT HAD DIALYSIS TODAY, REMAINS ANURIC. LEFT AV FISTULA POSITIVE FOR A BRUITT AND A THRILL. WEARS CPAP AT NIGHT PER RT. POSSIBLE D/C HOME WITH HOME HEALTH TODAY. WILL MONITOR.
[2019-12-05 06:27] LABS: HEMATOCRIT 32.1 % (42.0-52.0); HEMOGLOBIN 9.2 gm/dL (14.0-18.0); MCH 27.5 pg (26.0-34.0); MCHC 28.6 g/dL (28.0-37.0); MCV 95.9 fL (80.0-100.0); RBC 3.35 mil/uL (4.50-6.00); RDW 22.7 % (10.5-14.5); WBC 6.7 thou/uL (4.0-11.0)
[2019-12-05 06:49] LABS: CALCIUM 8.3 mg/dL (8.5-10.1); MAGNESIUM 1.9 mg/dL (1.8-2.4); POTASSIUM 3.5 mmol/L (3.5-5.1)
[2019-12-05 06:53] LABS: CREATININE 5.7 mg/dL (0.7-1.3)
--- NOTE | 2019-12-05 10:53 | NUR ---
ASSUMED PT CARE FROM [facility], ASSESSED, POC REVIEWED, PT VERBALIZED UNDERSTANDING, PT RESTING IN BED, ATE ALL OF BREAKFAST, WAITING TO SEE DR FOR DC ORDERS TO GO HOME WITH HOME HEALTH, WILL MONITOR
--- NOTE | 2019-12-05 13:43 | NUR ---
ASSUMED CARE OF PT MID SHIFT, HE'S A&0X4, AWAITING DISCHARGE. PHYSICIAN INQUIRED WHETHER HIS BIPAP IS AT HOME. UNKNOWN, NOTES SAY IT WAS ORDERED OVER THE WEEKEND. TEXTED CM TO FIND OUT DETAILS SO DR. WATSON COULD BE ALERTED SHE IS WAITING ON THIS INFO BEFORE DISCHARGING. PT HAS CAR HERE AT THE HOSPITAL. IV AND TELE WILL BE REMOVED AND PT WHEELED OUT, ONCE DISCHARGE IS FINALIZED. ENCOURAGED PT TO USE CALL LIGHT FOR ANY NEEDS, FILLED WATER CUP
[2019-12-06 04:15] VITALS: BP 94/60
--- NOTE | 2019-12-06 05:16 | NUR ---
PATIENT ALERT AND ORIENTED X4. TELE AFIB/NSR. POSSIBLE D/C TO HOME WITH HOME HEALTH. PATIENT DROVE HIMSELF TO THE HOSPITAL AND CAR REMAINS ON SITE. BS MONITORED PER ORDER. FISTULA POSITIVE FOR BRUITT AND THRILL. ANURIC. REMAINS ON OXYGEN PER NASAL CANULA DURING THE AM AND CPAP AT NIGHT. WILL MONITOR.
[2019-12-06 05:39] LABS: ABSOLUTE NEUTROPHILS 4.5 thou/uL (1.4-8.2); BASOPHILS 0.4 % (0.0-2.0); EOSINOPHILS 2.6 % (0.0-3.0); HEMATOCRIT 32.3 % (42.0-52.0); HEMOGLOBIN 9.2 gm/dL (14.0-18.0); LYMPHOCYTES 24.3 % (24.0-44.0); MCH 27.4 pg (26.0-34.0); MCHC 28.6 g/dL (28.0-37.0); MCV 95.8 fL (80.0-100.0); MONOCYTES 7.5 % (1.0-8.0); PLATELET COUNT 232 thou/uL (150-400); POLYS 65.2 % (36.0-66.0); RBC 3.38 mil/uL (4.50-6.00); RDW 22.4 % (10.5-14.5)
[2019-12-06 05:45] LABS: CALCIUM 8.2 mg/dL (8.5-10.1); POTASSIUM 3.8 mmol/L (3.5-5.1)
[2019-12-06 05:48] LABS: CREATININE 7.4 mg/dL (0.7-1.3)
[2019-12-06 08:05] VITALS: BP 82/40
[2019-12-06] MEDS ORDERED: VITAMIN D21250 MC1 PO (10:58)
[2019-12-06 12:31] VITALS: BP 87/50
[2019-12-06 12:42] VITALS: BP 151/51
[2019-12-06 14:15] VITALS: BP 151/51
--- NOTE | 2019-12-06 14:16 | NUR ---
ASSUMED CARE OF PT AT SHIFT CHANGE. ASSESSMENTS CHARTED. MEDS GIVEN PER JUL. PT A&OX4. NO C/O PAIN. PT ON 10L NC, NO C/O SOA. DR. MATTHEWS SENT RX TO [facility] FOR BIPAP. DISCHARGE ORDERS AND INSTRUCTIONS COMPLETE. TELE AND IV DC'D. THIS NURSE TOOK PT TO HIS PRIVATE CAR AT ER ENTRANCE VIA WHEELCHAIR.
== END 2019-12-06 14:14 | disposition home health service (06) | DRG 291 ==
LOC: ER 19:07 → 2N 12-04 00:05 → EROBS 12-04 00:05 → 2N 12-04 00:52
PROVIDERS: Emergency Medicine; Internal Medicine; Nurse Practitioner Family; ADMIT Internal Medicine; ATTEND Internal Medicine
PROC: 5A09357 Assistance with Respiratory Ventilation, Less than 24 Consecutive Hours, Continuous Positive Airway Pressure (ICD-10-PCS; principal; 2019-12-04)
PROC: 5A1D70Z Performance of Urinary Filtration, Intermittent, Less than 6 Hours Per Day (ICD-10-PCS; 2019-12-04)
PROC: 5A09357 Assistance with Respiratory Ventilation, Less than 24 Consecutive Hours, Continuous Positive Airway Pressure (ICD-10-PCS; 2019-12-05)
PROC: 5A09357 Assistance with Respiratory Ventilation, Less than 24 Consecutive Hours, Continuous Positive Airway Pressure (ICD-10-PCS; 2019-12-06)
DX: I13.2 Hypertensive heart and chronic kidney disease with heart failure and with stage 5 chronic kidney disease, or end stage renal disease (principal); N18.6 End stage renal disease; I50.33 Acute on chronic diastolic (congestive) heart failure; J96.22 Acute and chronic respiratory failure with hypercapnia; J96.21 Acute and chronic respiratory failure with hypoxia; E66.2 Morbid (severe) obesity with alveolar hypoventilation; Z68.1 Body mass index [BMI] 19.9 or less, adult; I95.89 Other hypotension; E11.22 Type 2 diabetes mellitus with diabetic chronic kidney disease; E03.9 Hypothyroidism, unspecified; I48.0 Paroxysmal atrial fibrillation; M10.9 Gout, unspecified; K21.9 Gastro-esophageal reflux disease without esophagitis; D63.8 Anemia in other chronic diseases classified elsewhere; I27.20 Pulmonary hypertension, unspecified; Z79.4 Long term (current) use of insulin; Z79.01 Long term (current) use of anticoagulants; Z99.2 Dependence on renal dialysis; I25.2 Old myocardial infarction; J44.9 Chronic obstructive pulmonary disease, unspecified; E11.65 Type 2 diabetes mellitus with hyperglycemia
CPT/HCPCS: 10081; 32100